=== PATIENT | male | born 1950 | race Caucasian/White ===

== ENCOUNTER → 2018-04-27 | Day surgery (SDC) | payer OTHER ==
[2018-04-23 12:58] VITALS: Ht 168.9 cm; Wt 70.5 kg
[~2018-04-27] VITALS: Ht 168.9 cm; Wt 70.5 kg
[~2018-04-27] MED LIST: ASPI81TA28 PO; ATR10 PO; ATROPINE SULFATE 0.1 MG/ML 5ML SYR IV PRN; CIPROFLOXACIN 400MG / 200ML D5W IV ONE; CIPROFLOXACIN 400MG / 200ML D5W ONE; DEXAMETHASONE SOD INJ 4 MG/ML VIAL ONE; DOCU100C31 PO; DORZ1SOL6 OP; EpHEDrine SULFATE 50MG/5ML SYR ONE; EpHEDrine SULFATE INJ 50 MG/ML AMP IV PRN; FENTANYL CITRATE INJ 50 MCG/1 ML 2 ML VIAL IV PRN; FENTANYL CITRATE INJ 50 MCG/1 ML 2 ML VIAL ONE; FLAX12003 PO; FLUMAZENIL 0.1 MG/1 ML 10 ML VIAL IV PRN; HYDROmorphone INJ 2 MG/ML SYR/VIAL IV PRN; INDOMETHACIN 50 MG SUPP ONE; INDOMETHACIN 50 MG SUPP PR ONE; LABETALOL HCL IV 5 MG/ML 20ML IV PRN; LACTATED RINGER'S 1000ML 1,000 ML IV ONE; LACTATED RINGER'S 1000ML 1,000 ML IV SCH; LARYING-O-JET KIT (LTA) ONE; LATA0.5S OP; LIDOCAINE HCL 2% 2 ML VIAL (20MG/ML) ONE; MELA1TAB5 PO; MEPERIDINE HCL 25 MG/ML CARP IV PRN; MIDAZOLAM HCL 1 MG/ML 2ML VIAL ONE; MULT-506 PO; NALOXONE HCL 0.4 MG/1 ML VIAL/CARP IV PRN; OMEP20CA9 PO; ONDA4TAB46 PO; ONDANSETRON INJ 2 MG/ML 2 ML VIAL IV PRN; ONDANSETRON INJ 2 MG/ML 2 ML VIAL ONE; PATIENT'S ALLERGY INFO NEEDS ENTERED SCH; PHENYLEPHRINE 100MCG/ML 5ML SYR IV PRN; PROPOFOL IV EMULSION 10 MG/ML 20 ML VIAL ONE; ROCURONIUM BROMIDE 10 MG/ML 5 ML VIAL ONE; SUCCINYLCHOLINE CHLORIDE 20 MG/ML 10 ML VIAL IV ONE; TAMS0.4C38 PO; WHEAPOW13 PO
[2018-04-27 12:29] VITALS: BP 139/83; PULSE 63; TEMP 36.9; O2SAT 99
--- NOTE | 2018-04-27 12:51 | Endo History and Physical ---
History & Physical Date of Service: Apr 27, 2018. Chief Complaint: Abnormal imaging Referring Physician: Dr. Schroeder History of Present Illness patient presented to Dr. Schroeder last week with abdominal pain, nausea, itching, and elevated liver tests. Imaging was notable for a suspicious cbd or pancreatic mass. He has been referred for further evaluation and treatment. Past Surgical History Hx Cardiac Surgery: No Hx Abdominal Surgery: No Hx Post-Op Nausea and Vomiting: No Hx Cancer Surgery: No Hx Thoracic Surgery: No Hx Orthopedic: No Hx Urinary Tract Surgery: No No abdominal surgeries Social History Smoking Status: Never Smoker Hx Substance Use: No Hx Alcohol Use: Yes (OCC SOCIAL) Allergies Coded Allergies: No Known Allergies (Unverified , 04/27/18) Current Medications Reported Home Medications Medications Dose Route/Sig Max Daily Dose Days Date Category Hydroxyzine HCl 10 Mg Tab 10 Mg PO Q8H PRN 04/27/18 Reported Zofran (Ondansetron HCl) 4 Mg Tab 4 Mg PO PRN PRN 04/23/18 Reported Kp Melatonin (Melatonin) 3 Mg Tab 1 Tab PO HS 30 04/23/18 Reported Multivitamin (Multivitamins) Tab 1 Tab PO QAM 04/23/18 Reported Xalatan 0.005% Oph Carli (Latanoprost) 0.005 % Carli 1 Drops OP QPM 04/23/18 Reported Cosopt Oph (Dorzolamide Hcl-Timolol Maleat) 1 Carli Carli 1 Drops OP BID 04/23/18 Reported Benefiber (Wheat Dextrin) 1 Pow Pow 1 Dose PO QAM 04/23/18 Reported Aspirin Ec (Aspirin) 81 Mg Tab 81 Mg PO QAM 04/23/18 Reported Flomax (Tamsulosin Hcl) 0.4 Mg Cap 0.4 Mg PO HS 04/23/18 Reported Flaxseed Oil (Flaxseed (Linseed)) 1 Cap Cap 1 Tab PO QAM 04/23/18 Reported Docusate Sodium 100 Mg Cap 1 Cap PO BID PRN 7 04/23/18 Reported Vital Signs Weight (Kilograms): 70.45 Height (Feet): 5 Height (Inches): 6.5 Date Time Temp Pulse Resp B/P (MAP) Pulse Ox O2 Delivery O2 Flow Rate FiO2 04/27/18 12:29 36.9 63 18 139/83 (101) 99 Room Air Physical Exam General Appearance: no apparent distress Respiratory/Chest: Auscultation: breath sounds normal Cardiovascular: Heart Auscultation: RRR Abdomen: Inspection & Palpation: soft Assessment and Plan Patient with suspicious imaging and elevation of his liver enzymes. We are planning for further evaluation with EGD, EUS and ERCP for staging and treatment of biliary obstruction. We have discussed the risks to include bleeding, infection, perforation, pain, pancreatitis, failed cannulation and insufficient cellularity. Plan EGD EUS with possible FNA ERCP for biliary decompression
--- NOTE | 2018-04-27 14:04 | GI REPORT ---
Patient Name: Talib Fernandez Procedure Date: 04/27/2018 1:49 PM Date of : 1950 Admit Type: Preadmit Age: 68 Gender: Male Attending MD: Keisha Nevarez DO Procedure: Upper GI endoscopy Providers: Keisha Nevarez DO Referring MD: Joshua Schroeder Indications: Abnormal CT of the GI tract Medicines: General Anesthesia Complications: No immediate complications. Estimated blood loss: Minimal. Estimated Blood Loss: Estimated blood loss was minimal. Procedure: Pre-Anesthesia Assessment: - Prior to the procedure, a History and Physical was performed, and patient medications, allergies and sensitivities were reviewed. The patient's tolerance of previous anesthesia was reviewed. - The risks and benefits of the procedure and the sedation options and risks were discussed with the patient. All questions were answered and informed consent was obtained. - Patient identification and proposed procedure were verified prior to the procedure by the physician, the nurse and the knife machine operator. The procedure was verified in the procedure room. - Pre-procedure physical examination revealed no contraindications to sedation. - ASA Grade Assessment: II - A patient with mild systemic disease. - After reviewing the risks and benefits, the patient was deemed in satisfactory condition to undergo the procedure. - The anesthesia plan was to use general anesthesia. - Immediately prior to administration of medications, the patient was re-assessed for adequacy to receive sedatives. - The heart rate, respiratory rate, oxygen saturations, blood pressure, adequacy of pulmonary ventilation, and response to care were monitored throughout the procedure. - The physical status of the patient was re-assessed after the procedure. After obtaining informed consent, the endoscope was passed under direct vision. Throughout the procedure, the patient's blood pressure, pulse, and oxygen saturations were monitored continuously. The scope was introduced through the mouth, and advanced to the third part of duodenum. The upper GI endoscopy was accomplished without difficulty. The patient tolerated the procedure well. Findings: The examined esophagus was normal. The Z-line was regular and was found 41 cm from the incisors. The gastric fundus, gastric body and incisura were normal. Four, small non-bleeding erosions were found in the gastric antrum. There were no stigmata of recent bleeding. Biopsies were taken with a cold forceps for histology. Estimated blood loss was minimal. The examined duodenum was normal. Impression: - Normal esophagus. - Z-line regular, 41 cm from the incisors. - Normal gastric fundus, gastric body and incisura. - Non-bleeding erosive gastropathy. Biopsied. - Normal examined duodenum. Recommendation: - Perform an upper endoscopic ultrasound (UEUS) today. - Await pathology results. - Use Prilosec (omeprazole) 20 mg PO daily for 8 weeks. Keisha Nevarez D.O. Keisha Nevarez, 04/27/2018 2:03:23 PM This report has been signed electronically. Note Initiated On: 04/27/2018 1:49 PM Number of Addenda: 0 I attest to the content of the Intraoperative Record and orders documented therein, exceptions below {[id number]}
--- NOTE | 2018-04-27 15:35 | GI REPORT ---
Patient Name: Talib Fernandez Procedure Date: 04/27/2018 1:52 PM Date of : 1950 Admit Type: Preadmit Age: 68 Gender: Male Attending MD: Keisha Nevarez DO Procedure: ERCP Providers: Keisha Nevarez DO Referring MD: Joshua Schroeder Indications: Abnormal liver function test Medicines: General Anesthesia, Cipro 400 mg IV, Indocin 100 mg [place] Complications: No immediate complications. Estimated blood loss: Minimal. Estimated Blood Loss: Estimated blood loss was minimal. Procedure: Pre-Anesthesia Assessment: - Prior to the procedure, a History and Physical was performed, and patient medications, allergies and sensitivities were reviewed. The patient's tolerance of previous anesthesia was reviewed. - The risks and benefits of the procedure and the sedation options and risks were discussed with the patient. All questions were answered and informed consent was obtained. - Patient identification and proposed procedure were verified prior to the procedure by the physician, the nurse and the small animal caretaker. The procedure was verified in the procedure room. - Pre-procedure physical examination revealed no contraindications to sedation. - ASA Grade Assessment: II - A patient with mild systemic disease. - After reviewing the risks and benefits, the patient was deemed in satisfactory condition to undergo the procedure. - The anesthesia plan was to use general anesthesia. - Immediately prior to administration of medications, the patient was re-assessed for adequacy to receive sedatives. - The heart rate, respiratory rate, oxygen saturations, blood pressure, adequacy of pulmonary ventilation, and response to care were monitored throughout the procedure. - The physical status of the patient was re-assessed after the procedure. After obtaining informed consent, the scope was passed under direct vision. Throughout the procedure, the patient's blood pressure, pulse, and oxygen saturations were monitored continuously. The patient tolerated the procedure well. The scope was introduced through the mouth, and advanced to the duodenum and used to inject contrast into the bile duct. The ERCP was extremely difficult. Successful completion of the procedure was aided by performing the maneuvers documented (below) in this report. Findings: The total fluoroscopy exposure time was 5 minutes and 41 seconds. The contact officer film was normal. The esophagus was successfully intubated under direct vision without detailed examination of the pharynx, larynx, and associated structures, and upper GI tract. The upper GI tract was grossly normal. The major papilla was normal. The bile duct was deeply cannulated with the short-nosed traction sphincterotome (Omni 35)and 0.035 in Acrobat 2 guidewire. Contrast was injected. I personally interpreted the bile duct images. Contrast extended to the entire biliary tree. The upper third of the main bile duct contained a single segmental stenosis 15 mm in length. The cystic duct was patent and the gallbladder appeared dilated. The biliary tree was dilated above the stricture / mass. Initially the wire could not be passed above the stricture due to significant stenosis and mass effect. Several different wire combinations were tried to include a 0.035 in Acrobat 2, 0.025 in Acrobat 2 and finally a 0.035 in Delta wire. Finally, the detlt wire was passed into the intrahepatics. Biliary sphincterotomy was made with a monofilament short-tip traction sphincterotome using ERBE electrocautery. There was no post-sphincterotomy bleeding. Cells for cytology were obtained by brushing. The upper third of the main bile duct was successfully dilated with a 4 mm balloon dilator. One 7 Fr by 10 cm biliary stent with a single external flap and a single internal flap was placed 10 cm into the common bile duct. Bile flowed through the stent. The stent was in good position. The endoscope was withdrawn from the patient. Impression: - The major papilla appeared normal. 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 The top portion of the mass appeared be below the common hepatic duct and bifurcation. The stricture was malignant appearing. - A sphincterotomy was performed. - One biliary stent was placed into the biliary tree. Recommendation: - Avoid aspirin and nonsteroidal anti-inflammatory medicines for 1 week. - Observe patient in same day observation unit for 1 hour for observation. - Use broad spectrum antibiotics for 5 days. - Clear liquid diet today. Keisha Nevarez D.O. Keisha Nevarez DO 04/27/2018 3:35:14 PM This report has been signed electronically. Note Initiated On: 04/27/2018 1:52 PM Number of Addenda: 0 I attest to the content of the Intraoperative Record and orders documented therein, exceptions below {[id number]}
--- NOTE | 2018-04-27 15:36 | [facility] Post Operative Brief Note ---
Immediate Operative Summary Operative Date Apr 27, 2018. 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 Keisha Nevarez Entry Level Machine Operator Surgeon(s) None Estimated Blood Loss 0ml Findings Consistent with Post-Op Diagnosis Specimens 1. gastric biopsy 2 bile duct mass biopsy (FNA) 3) [place] cytology of the bile duct Drains Biliary stent placed Anesthesia Type General Complication(s) none Disposition Accompanied Pt To Recover: no Disposition: Recovery Room / PACU
--- NOTE | 2018-04-27 15:39 | Discharge Instructions ---
Endoscopy Patient Instructions Date / Procedure(s) Performed Apr 27, 2018. ERCP, EGD, Other (Endoscopic ultrasound) Allergy Information Coded Allergies: No Known Allergies (Unverified , 04/27/18) Discharge Date / Findings Apr 27, 2018. Several small gastric ulcers / erosions 18 mm common bile duct mass Medication Instructions Reported Home Medications Medications Dose Route/Sig Max Daily Dose Days Date Category Hydroxyzine HCl 10 Mg Tab 10 Mg PO Q8H PRN 04/27/18 Reported Zofran (Ondansetron HCl) 4 Mg Tab 4 Mg PO PRN PRN 04/23/18 Reported Kp Melatonin (Melatonin) 3 Mg Tab 1 Tab PO HS 30 04/23/18 Reported Multivitamin (Multivitamins) Tab 1 Tab PO QAM 04/23/18 Reported Xalatan 0.005% Oph Carli (Latanoprost) 0.005 % Carli 1 Drops OP QPM 04/23/18 Reported Cosopt Oph (Dorzolamide Hcl-Timolol Maleat) 1 Carli Carli 1 Drops OP BID 04/23/18 Reported Benefiber (Wheat Dextrin) 1 Pow Pow 1 Dose PO QAM 04/23/18 Reported Aspirin Ec (Aspirin) 81 Mg Tab 81 Mg PO QAM 04/23/18 Reported Flomax (Tamsulosin Hcl) 0.4 Mg Cap 0.4 Mg PO HS 04/23/18 Reported Flaxseed Oil (Flaxseed (Linseed)) 1 Cap Cap 1 Tab PO QAM 04/23/18 Reported Docusate Sodium 100 Mg Cap 1 Cap PO BID PRN 7 04/23/18 Reported Provider Instructions Activity Restrictions - No exercising or heavy lifting for 24 hours. - Do not drink alcohol the day of the procedure. - Do not drive a car or operate machinery until the day after the procedure. - Do not make any important decisions or sign important papers in 24 hours after the procedure. Following Day: - Return to full activity which may include returning to work/school. Diet Clear liquid diet today Regular diet on 04/28/18 Treatment For Common After Affects For mild abdominal pain, bloating, or excessive gas: - Rest - Eat lightly - Lie on right side Follow-Up Information Cipro 500 mg twice daily for 5 days Omeprazole 20 mg per day for 8 weeks (small gastric ulcers) Surgical oncology appointment CT of the chest to be scheduled Anesthesia Information What You Should Know You have had a procedure that required some medicine to reduce anxiety and discomfort. This treatment is called moderate sedation. After receiving the treatment, you may be sleepy, but you will be able to breathe on your own. The effects of the treatment may last for several hours. Follow these instructions along with Activity/Diet recommendations noted above: * Do NOT do anything where dizziness or clumsiness would be dangerous. * Rest quietly at home today, then you can be up and about tomorrow. * Have a responsible person stay with you the rest of today. * You may have had an I.V. today. If so, you may take the dressing off later today. Recommendations Call your doctor if: * Trouble breathing * Continuous vomiting for more than 24 hours * Temperature above 101 degrees * Severe abdominal pain or bloating * Pain not relieved by pain medicine ordered * There is increased drainage or redness from any incision * A large amount of rectal bleeding greater than 2-3 tablespoons. (If you had a polyp/s removed or have hemorrhoids, a small amount of blood - from the rectum is to be expected.) * You have any unanswered questions or concerns. IN THE EVENT OF A SERIOUS EMERGENCY, GO TO THE NEAREST EMERGENCY ROOM Your discharge instructions were prepared by provider Keisha Nevarez. Patient Instructions Signature Page Talib Fernandez Patient (or Guardian) Signature/Date: I have read and understand the instructions given to me by my caregivers. Caregiver/RN/Doctor Signature/Date: The above-named patient and/or guardian has received patient instructions on this date. + Original Patient Signature Page (only) stays with chart. Please make copy for patient.
--- NOTE | 2018-04-27 15:50 | GI REPORT ---
Patient Name: Talib Fernandez Procedure Date: 04/27/2018 1:50 PM Date of : 1950 Admit Type: Preadmit Age: 68 Gender: Male Attending MD: Keisha Nevarez DO Procedure: Upper EUS Providers: Keisha Nevarez DO Referring MD: Joshua Schroeder Indications: Suspected mass in pancreas on CT scan Medicines: General Anesthesia Complications: No immediate complications. Estimated blood loss: Minimal. Estimated Blood Loss: Estimated blood loss was minimal. Procedure: Pre-Anesthesia Assessment: - Prior to the procedure, a History and Physical was performed, and patient medications, allergies and sensitivities were reviewed. The patient's tolerance of previous anesthesia was reviewed. - The risks and benefits of the procedure and the sedation options and risks were discussed with the patient. All questions were answered and informed consent was obtained. - Patient identification and proposed procedure were verified prior to the procedure by the physician, the nurse and the spike driver. The procedure was verified in the procedure room. - Pre-procedure physical examination revealed no contraindications to sedation. - ASA Grade Assessment: II - A patient with mild systemic disease. - After reviewing the risks and benefits, the patient was deemed in satisfactory condition to undergo the procedure. - The anesthesia plan was to use general anesthesia. - Immediately prior to administration of medications, the patient was re-assessed for adequacy to receive sedatives. - The heart rate, respiratory rate, oxygen saturations, blood pressure, adequacy of pulmonary ventilation, and response to care were monitored throughout the procedure. - The physical status of the patient was re-assessed after the procedure. After obtaining informed consent, the endoscope was passed under direct vision. Throughout the procedure, the patient's blood pressure, pulse, and oxygen saturations were monitored continuously.The upper EUS was accomplished without difficulty. The patient tolerated the procedure well. The Endosonoscope was introduced through the mouth, and advanced to the second part of duodenum. The scope was introduced through the mouth, and advanced to the second part of duodenum. Findings: Endosonographic Finding : There was no sign of significant endosonographic abnormality in the ampulla. No masses were identified. Moderate hyperechoic material consistent with sludge was visualized endosonographically in the gallbladder. There was dilation in the common bile duct which measured up to 12 mm. An oval hypoechoic mass was identified endosonographically in the mid portion of thecommon bile duct. The mass measured 18 mm by 18 mm in maximal cross-sectional diameter. The outer margins were smooth. An intact interface was seen between the mass and the hepatic parenchyma, gallbladder, duodenum, pancreas and portal vein suggesting a lack of invasion. Fine needle aspiration was performed. Color Doppler imaging was utilized prior to needle puncture to confirm a lack of significant vascular structures within the needle path. Three passes were made with the 25 gauge needle (Daptiv pro-core) using a transduodenal approach. Care was taken to avoid the lumen of the CBD A stylet was used. A airport maintenance chief was present and performed a preliminary cytologic examination. Final cytology results are pending. Estimated blood loss was minimal. There was no sign of significant endosonographic abnormality in the entire pancreas. No masses, no cysts, the pancreatic duct was thin in caliber. The PD was normal measuring 3.9 mm in the head. No lymphadenopathy seen. There was no sign of significant endosonographic abnormality in the left adrenal gland. No masses were identified. A cyst was found in the left lobe of the liver and measured 15 mm by 10 mm in maximal cross-sectional diameter. The cyst was hypoechoic. It was without septae. The outer wall of the lesion was not seen. There was diffuse dilation of the intrahepatic biilary tree. Impression: - Normal ampulla. - Hyperechoic material consistent with sludge was visualized endosonographically in the gallbladder. - There was dilation in the common bile duct which measured up to 12 mm. - An 18 mm mass was found in the mild porton of the common bile duct. Fine needle aspiration performed. - Normal pancreas. - Endosonographic images of the left adrenal gland were unremarkable. - A cyst was found in the left lobe of the liver and measured 15 mm by 10 mm. - Diffuse dilation of the intrahepatic biliary tree. Recommendation: - Perform an ERCP today. - Await cytology results. - Suspect that the mass represents cholangiocarcinoma, Stage T1N0 by EUS if cytology is positive. Keisha Nevarez D.O. Keisha Nevarez DO 04/27/2018 3:49:27 PM This report has been signed electronically. Note Initiated On: 04/27/2018 1:50 PM Number of Addenda: 0 I attest to the content of the Intraoperative Record and orders documented therein, exceptions below {[id number]}
--- NOTE | 2018-04-27 16:00 | DIAGNOSTIC IMAGING REPORT ---
ERCP BILIARY DUCTAL CLINICAL HISTORY: DUCT EXPLORATIONno history of significance is provided. COMPARISON STUDY: None FLUOROSCOPY TIME: 3 minutes. 50 images are acquired.. FINDINGS: 1. Retrograde placement of a guidewire followed by retrograde opacification of the common bile duct. Common bile duct vaughan are perhaps slightly irregular and/or multinodular. There is contrast extravasation through what appears to be a cystic duct remnant. There is mild fullness of the intrahepatic ducts with no additional findings of possible. Final images demonstrate placement of a left ureteral stent and sweeping of the common duct with IMPRESSION: Sweeping of the common duct. Contrast extravasation via the cystic duct The above report was generated using voice recognition software. It may contain grammatical, syntax or spelling errors. Electronically signed by: Bradley Zeng M.D. 04/27/2018 3:58 PM Dictated Date/Time: 04/27/2018 3:55 PM
[2018-04-27 16:30] VITALS: BP 147/79; PULSE 64; TEMP 36.4; O2SAT 96
--- NOTE | 2018-04-27 16:42 | Anesthesiology Progress Note ---
Anesthesia Post Op Note Date & Time Apr 27, 2018 at 16:42 Vital Signs Pain Intensity: 0 Vital Signs Past 12 Hours Date Time Temp Pulse Resp B/P (MAP) Pulse Ox O2 Delivery O2 Flow Rate FiO2 04/27/18 16:15 36.6 67 18 139/84 96 Room Air 04/27/18 16:05 66 18 148/93 96 Room Air 04/27/18 15:55 64 16 137/90 100 Oxymask 10 04/27/18 15:45 69 16 143/69 100 Oxymask 10 04/27/18 15:37 36.1 67 16 152/85 100 Oxymask 10 04/27/18 12:29 36.9 63 18 139/83 (101) 99 Room Air Notes Mental Status: alert / awake / arousable, participated in evaluation Pt Amnestic to Procedure: Yes Nausea / Vomiting: adequately controlled Pain: adequately controlled Airway Patency, RR, SpO2: stable & adequate BP & HR: stable & adequate Hydration State: stable & adequate Anesthetic Complications: no major complications apparent
[2018-04-27 17:00] VITALS: BP 140/79; PULSE 68; O2SAT 96
== END | disposition home or self-care (01) ==
LOC: C.ACU 11:48
PROVIDERS: ATTEND Internal Medicine Gastroenterology
DX: C24.0 Malignant neoplasm of extrahepatic bile duct (principal); R94.5 Abnormal results of liver function studies; K31.9 Disease of stomach and duodenum, unspecified; Z79.82 Long term (current) use of aspirin; Z79.899 Other long term (current) drug therapy; F32.9 Major depressive disorder, single episode, unspecified; N40.0 Benign prostatic hyperplasia without lower urinary tract symptoms; K21.9 Gastro-esophageal reflux disease without esophagitis

== ENCOUNTER 2018-05-13 13:04 | Inpatient (IN) | payer OTHER ==
[~2018-05-13] VITALS: Ht 165.1 cm; Wt 73.3 kg
[~2018-05-13 13:04] MED LIST changes: -ATROPINE SULFATE 0.1 MG/ML 5ML SYR IV PRN; -CIPROFLOXACIN 400MG / 200ML D5W IV ONE; -CIPROFLOXACIN 400MG / 200ML D5W ONE; -DEXAMETHASONE SOD INJ 4 MG/ML VIAL ONE; -EpHEDrine SULFATE 50MG/5ML SYR ONE; -EpHEDrine SULFATE INJ 50 MG/ML AMP IV PRN; -FENTANYL CITRATE INJ 50 MCG/1 ML 2 ML VIAL IV PRN; -FENTANYL CITRATE INJ 50 MCG/1 ML 2 ML VIAL ONE; -FLUMAZENIL 0.1 MG/1 ML 10 ML VIAL IV PRN; -HYDROmorphone INJ 2 MG/ML SYR/VIAL IV PRN; -INDOMETHACIN 50 MG SUPP ONE; -INDOMETHACIN 50 MG SUPP PR ONE; -LABETALOL HCL IV 5 MG/ML 20ML IV PRN; -LACTATED RINGER'S 1000ML 1,000 ML IV ONE; -LACTATED RINGER'S 1000ML 1,000 ML IV SCH; -LARYING-O-JET KIT (LTA) ONE; -LIDOCAINE HCL 2% 2 ML VIAL (20MG/ML) ONE; -MEPERIDINE HCL 25 MG/ML CARP IV PRN; -MIDAZOLAM HCL 1 MG/ML 2ML VIAL ONE; -NALOXONE HCL 0.4 MG/1 ML VIAL/CARP IV PRN; -OMEP20CA9 PO; -ONDANSETRON INJ 2 MG/ML 2 ML VIAL IV PRN; -ONDANSETRON INJ 2 MG/ML 2 ML VIAL ONE; -PATIENT'S ALLERGY INFO NEEDS ENTERED SCH; -PHENYLEPHRINE 100MCG/ML 5ML SYR IV PRN; -PROPOFOL IV EMULSION 10 MG/ML 20 ML VIAL ONE; -ROCURONIUM BROMIDE 10 MG/ML 5 ML VIAL ONE; -SUCCINYLCHOLINE CHLORIDE 20 MG/ML 10 ML VIAL IV ONE
[2018-05-13 14:12] LABS: HEMATOCRIT 40.6 % (42-52); HEMOGLOBIN 13.9 g/dL (14.0-18.0); MEAN CELL VOLUME 92.5 fL (80-100); MEAN CORPUSCULAR HEMOGLOBIN 31.7 pg (25-34); MEAN CORPUSCULAR HGB CONC 34.2 g/dl (32-36); PLATELET COUNT 204 K/uL (130-400); RED CELL DISTRIBUTION WIDTH CV 14.9 % (11.5-14.5); RED CELL DISTRIBUTION WIDTH SD 50.7 fL (36.4-46.3)
[2018-05-13] MEDS ORDERED: PIPERACILLIN/TAZOBACTAM 4.5 GM/100ML D5W IV STA (14:13)
[2018-05-13] MEDS ORDERED: SODIUM CHLORIDE 0.9% 1000ML 1,000 ML IV STA (14:13)
--- NOTE | 2018-05-13 14:28 | EMERGENCY ROOM VISIT NOTE ---
History Report prepared by Erwin: Al Yeager Under the Supervision of: Dr. Howie Ruby M.D. First contact with patient: 14:05 Chief Complaint: FLU LIKE SX Stated Complaint: FLU LIKE SYMPTOMS, CHILLS AND ACHES History of Present Illness The patient is a 68 year old male who presents to the Emergency Room with complaints of waxing and waning flu-like symptoms that began yesterday. Patient states he was diagnosed with cholangiocarcinoma 3 weeks ago and had a biliary stent placed by Dr. Nevarez 2 weeks ago. Patient states he has been getting intermittent upper abdominal pain since the stent placement. He states that his abdominal pain is worsened with walking and relieved when he eats. He describes the pain as a "dull ache". He states he called Dr. Nevarez a couple of days ago who told him the stent "might be kinking". Patient adds he saw Dr. Schroeder yesterday for a sore throat that he has had for a week and a half. He states during this visit he was not experiencing the upper abdominal pain. Patient states he had a strep culture done which was negative. He states he was not started on any medication. Patient states following that appointment he began to have "extreme" chills and nausea. He states he then began to develop a fever. Patient states after resting in bed till 2330 yesterday, the symptoms resolved. Patient states when he woke up this morning he felt fatigued and achy. He states he started to develop chills, nausea, body aches, and a headache throughout the today. He denies upper abdominal pain, cough, bowel symptoms, or urinary symptoms. Patient states he was started on a 5-day course of Cipro by his oncologist in [place] yesterday for his body aches. He adds he has a surgery scheduled at the [facility] in [place] in 3 weeks. Patient denies being around anyone else that is sick. Patient denies any chance of tick bites. Patient adds he took ibuprofen for his headache yesterday. Source of History: patient Onset: Yesterday Position: head, abdomen Timing: waxes/wanes Modifying Factors (Relieving): other (None) Associated Symptoms: + chills, + headache, + fatigue, No cough, No urinary symptoms Note: Positive body aches. Negative bowel symptoms. Review of Systems See HPI for pertinent positives & negatives. A total of 10 systems reviewed and were otherwise negative. Past Medical & Surgical Medical Problems: (1) BPH (benign prostatic hyperplasia) (2) Cholangiocarcinoma (3) Glaucoma (4) MDD (major depressive disorder) Family History Omitted secondary to age. Social History Smoking Status: Never Smoker Current/Historical Medications Scheduled Aspirin (Aspirin Ec), 81 MG PO QAM Dorzolamide Hcl-Timolol Maleat (Cosopt Oph), 1 DROPS OP BID Flaxseed (Linseed) (Flaxseed Oil), 1 TAB PO QAM Hydroxyzine HCl (Hydroxyzine HCl), 10 MG PO Q8H prn Latanoprost (Xalatan 0.005% Oph Carli), 1 DROPS OP QPM Melatonin (Kp Melatonin), 1 TAB PO HS Multivitamin (Multivitamin), 1 TAB PO QAM Omeprazole (Prilosec), 20 MG PO DAILY Tamsulosin Hcl (Flomax), 0.4 MG PO HS Wheat Dextrin (Benefiber), 1 DOSE PO QAM Scheduled PRN Ondansetron Hcl (Zofran), 4 MG PO Q8 PRN for Nausea Allergies Coded Allergies: No Known Allergies (Unverified , 05/13/18) Physical Exam Vital Signs Date Time Temp Pulse Resp B/P (MAP) Pulse Ox O2 Delivery O2 Flow Rate FiO2 05/13/18 17:08 78 16 96/71 98 Room Air 05/13/18 15:53 37.2 05/13/18 14:59 80 16 120/71 96 Room Air 05/13/18 14:15 93 05/13/18 13:12 37.5 92 18 135/82 95 Room Air Physical Exam GENERAL: Patient is in no acute distress. HEENT: No acute trauma, normocephalic atraumatic, mucous membranes moist, no nasal congestion, no scleral icterus, no throat erythema or exudate. NECK: No stridor, no adenopathy, no meningismus, trachea is midline. LUNGS: Clear to auscultation bilaterally, no wheeze, no rhonchi, breath sounds equal. HEART: Without murmurs gallops or rubs, regular rate and rhythm. ABDOMEN: Soft, nontender, bowel sounds positive, no hernias, no peritonitis. EXTREMITIES: No cyanosis or edema, full range of motion of all the joints without pain or difficulty, no signs for acute trauma. NEUROLOGIC: Oriented x 3, no acute motor or sensory deficits, no focal weakness. SKIN: Slight jaundice noticed, warm to touch, no rash. Medical Decision & Procedures ER Provider Diagnostic Interpretation: Radiology results as stated below per my review and radiologist interpretation: CT ABD/PELVIS IV CONTRAST ONLY CLINICAL HISTORY: Generalized abdominal pain. History of carcinoma and stent. COMPARISON STUDY: None. TECHNIQUE: Following the IV administration of 119 mL of Optiray-320, CT scan of the abdomen and pelvis was performed from the lung bases to the proximal femurs. Images are reviewed in the axial, sagittal, and coronal planes. IV contrast was administered without complication. A dose lowering technique was utilized adhering to the principles of ALARA. CT DOSE: 530.54 mGycm FINDINGS: Lower chest: There are basilar atelectatic changes. Liver: There is pneumobilia. There are multiple hypodense hepatic lesions, the largest of which measures 36 mm. These approach water attenuation likely represent cysts there is mild intrahepatic biliary ductal dilatation. There is an indwelling biliary enteric stent. Gallbladder: Contracted. Cholelithiasis. Spleen: Normal in size and attenuation. Pancreas: Unremarkable. Adrenal glands: Unremarkable. Kidneys: There is symmetric renal cortical enhancement. The kidneys are normal in size without hydronephrosis. Bowel: There are no transition zones indicate bowel obstruction. There is no evidence of acute diverticulitis. The appendix is not visualized with certainty. There are no findings to indicate acute appendicitis. Peritoneum: There is no intraperitoneal free air or abdominal ascites. Vasculature: The abdominal aorta is normal in course and caliber. Adenopathy: None. Pelvic viscera: The prostate is enlarged measuring 55 mm. Seminal vesicles are also prominent. Skeletal structures: There is prominent discogenic endplate sclerosis the L1-2 level. IMPRESSION: 1. No evidence of bowel obstruction. No evidence of free air 2. Cholelithiasis. Contracted gallbladder. 3. Multiple hypodense hepatic lesions likely represent cysts 4. Mild intrahepatic biliary ductal dilatation. Pneumobilia. Indwelling biliary enteric stent. 5. Prostamegaly 6. No evidence of acute appendicitis. No evidence of acute diverticulitis. Electronically signed by: Kev Perez M.D. 05/13/2018 3:18 PM CHEST ONE VIEW PORTABLE HISTORY: 68 years-old Male fever, poss pneumonia acute fever with concern for possible pneumonia COMPARISON: None available TECHNIQUE: Portable AP view of the chest FINDINGS: Cardiomediastinal and hilar silhouettes are within normal limits. No pneumothorax, pleural effusion, focal airspace consolidation or overt pulmonary edema. Bones of the chest appear grossly intact. Degenerative changes of the shoulders and spine. IMPRESSION: No acute process. The above report was generated using voice recognition software. It may contain grammatical, syntax or spelling errors. Electronically signed by: Jayce Bloom M.D. 05/13/2018 2:37 PM Laboratory Results 05/13/18 13:50 Red Blood Count 4.39, Mean Corpuscular Volume 92.5, Mean Corpuscular Hemoglobin 31.7, Mean Corpuscular Hemoglobin Concent 34.2, Mean Platelet Volume 10.0, Neutrophils (%) (Auto) 81.8, Lymphocytes (%) (Auto) 7.1, Monocytes (%) (Auto) 8.2, Eosinophils (%) (Auto) 2.3, Basophils (%) (Auto) 0.3, Neutrophils # (Auto) 7.53, Lymphocytes # (Auto) 0.65, Monocytes # (Auto) 0.75, Eosinophils # (Auto) 0.21, Basophils # (Auto) 0.03 05/13/18 13:50 Test 05/13/18 13:50 05/13/18 14:46 05/13/18 15:00 05/13/18 15:25 White Blood Count 9.20 K/uL (4.8-10.8) Red Blood Count 4.39 M/uL (4.7-6.1) Hemoglobin 13.9 g/dL (14.0-18.0) Hematocrit 40.6 % (42-52) Mean Corpuscular Volume 92.5 fL (80-100) Mean Corpuscular Hemoglobin 31.7 pg (25-34) Mean Corpuscular Hemoglobin Concent 34.2 g/dl (32-36) Platelet Count 204 K/uL (130-400) Mean Platelet Volume 10.0 fL (7.4-10.4) Neutrophils (%) (Auto) 81.8 % Lymphocytes (%) (Auto) 7.1 % Monocytes (%) (Auto) 8.2 % Eosinophils (%) (Auto) 2.3 % Basophils (%) (Auto) 0.3 % Neutrophils # (Auto) 7.53 K/uL (1.4-6.5) Lymphocytes # (Auto) 0.65 K/uL (1.2-3.4) Monocytes # (Auto) 0.75 K/uL (0.11-0.59) Eosinophils # (Auto) 0.21 K/uL (0-0.5) Basophils # (Auto) 0.03 K/uL (0-0.2) RDW Standard Deviation 50.7 fL (36.4-46.3) RDW Coefficient of Variation 14.9 % (11.5-14.5) Immature Granulocyte % (Auto) 0.3 % Immature Granulocyte # (Auto) 0.03 K/uL (0.00-0.02) Prothrombin Time 10.8 SECONDS (9.0-12.0) Prothromb Time International Ratio 1.0 (0.9-1.1) Activated Partial Thromboplast Time 31.8 SECONDS (21.0-31.0) Partial Thromboplastin Ratio 1.2 Anion Gap 8.0 mmol/L (3-11) Est Creatinine Clear Calc Drug Dose 61.1 ml/min Estimated GFR () 87.7 Estimated GFR (Non- 75.7 BUN/Creatinine Ratio 15.9 (10-20) Calcium Level 8.5 mg/dl (8.5-10.1) Magnesium Level 1.9 mg/dl (1.8-2.4) Total Bilirubin 0.8 mg/dl (0.2-1) Aspartate Amino Transf (AST/SGOT) 140 U/L (15-37) Alanine Aminotransferase (ALT/SGPT) 194 U/L (12-78) Alkaline Phosphatase 206 U/L (45-117) Total Protein 7.2 gm/dl (6.4-8.2) Albumin 3.3 gm/dl (3.4-5.0) Globulin 3.9 gm/dl (2.5-4.0) Albumin/Globulin Ratio 0.9 (0.9-2) Lipase 158 U/L (73-393) Lyme Disease IgG Antibody NEG (NEG) Lyme Disease IgM Antibody NEG (NEG) Lactic Acid Level 1.2 mmol/L (0.4-2.0) Urine Color YELLOW Urine Appearance TURBID (CLEAR) Urine pH 8.5 (4.5-7.5) Urine Specific [place] 1.021 (1.000-1.030) Urine Protein NEG (NEG) Urine Glucose (UA) NEG (NEG) Urine Ketones 1+ (NEG) Urine Occult Blood NEG (NEG) Urine Nitrite NEG (NEG) Urine Bilirubin NEG (NEG) Urine Urobilinogen NEG (NEG) Urine Leukocyte Esterase NEG (NEG) Urine WBC (Auto) 1-5 /hpf (0-5) Urine RBC (Auto) 0-4 /hpf (0-4) Urine Hyaline Casts (Auto) 0 /lpf (0-5) Urine Epithelial Cells (Auto) 10-20 /lpf (0-5) Urine Bacteria (Auto) NEG (NEG) Urine Sperm (Auto) PRESENT (NOT PRESENT) Influenza Type A Antigen Neg for Influ A (NEG) Influenza Type B Antigen Neg for Influ B (NEG) Medications Administered Medications (Trade) Dose Ordered Sig/Ling Route Start Time Stop Time Status Last Admin Dose Admin Sodium Chloride 1,000 ml @ 999 mls/hr Q1H1M STAT IV 05/13/18 14:13 05/13/18 15:13 DC 05/13/18 14:13 999 MLS/HR Piperacillin Sod/ Tazobactam Sod (Zosyn Iv) 4.5 gm NOW STAT IV 05/13/18 14:13 05/13/18 14:19 DC 05/13/18 15:12 4.5 GM ED Course 1409: The patient was evaluated in room B4B. A complete history and physical exam was performed. 1413: Zosyn Iv 4.5gm IV and Sodium Chloride 1000 ml @ 999 mls/hr IV 1500: Ioversol 100ml IV 1608: I reevaluated the patient and updated him on his findings. 1618: Upon reexamination the patient will be further evaluated. I discussed results and treatment plan with the patient. He verbalizes agreement and understanding. I spoke with Terra Orta PA-C of the [facility]. We discussed the patient's results and findings. The patient will be evaluated by Terra Orta PA-C for further management. Medical Decision Differential Diagnosis: Sepsis, bacteremia, biliary stent infection, acute cholecystitis, pneumonia, UTI , biliary obstruction, pharyngitis, lyme disease, and viral illness. There is no leukocytosis or worrisome anemia. No significant electrolyte abnormality, kidney failure. No pancreatitis. Liver enzymes are somewhat elevated. Chest film does not show pneumonia or CHF. Abdominal and pelvis CT does not show any obvious abscess. No significantly dilated biliary ducts. No evidence for diverticulitis or other acute infectious abdominal process. On my exam, the patient was not tender across the abdomen. Patient received IV saline, he was given IV Zosyn as empiric antibiotic coverage. I discussed the case with GI, they recommended a hospital stay and IV antibiotics. The patient may require stent removal and replacement. I spoke to the patient and case management. The on-call hospitalist was counseled. In short, the source for this fever and his symptoms is unclear but we are concerned about an infected, obstructed biliary stent. Hospitalization is warranted. Medication Reconcilliation Current Medication List: was personally reviewed by me Blood Pressure Screening Patient's blood pressure: Normal blood pressure Blood pressure disposition: Did not require urgent referral Consults Time Called: 1609 Consulting Physician: Terra Orta PA-C Returned Call: 1610 Discussed the patient's case. The patient will be evaluated for further management. Impression Primary Impression: Fever Additional Impressions: Elevated liver enzymes Biliary obstruction Scribe Attestation The scribe's documentation has been prepared under my direction and personally reviewed by me in its entirety. I confirm that the note above accurately reflects all work, treatment, procedures, and medical decision making performed by me. Departure Information Dispostion Being Evaluated By Hospitalist Referrals Joshua Schroeder MD (PCP) Forms HOME CARE DOCUMENTATION FORM, IMPORTANT VISIT INFORMATION Patient Instructions My [facility] Problem Qualifiers
[2018-05-13 14:29] LABS: ALBUMIN 3.3 gm/dl (3.4-5.0); CALCIUM 8.5 mg/dl (8.5-10.1); CREATININE 1.02 mg/dl (0.60-1.40); POTASSIUM 3.8 mmol/L (3.5-5.1); TOTAL PROTEIN 7.2 gm/dl (6.4-8.2)
--- NOTE | 2018-05-13 14:38 | DIAGNOSTIC IMAGING REPORT ---
CHEST ONE VIEW PORTABLE HISTORY: 68 years-old Male fever, poss pneumonia acute fever with concern for possible pneumonia COMPARISON: None available TECHNIQUE: Portable AP view of the chest FINDINGS: Cardiomediastinal and hilar silhouettes are within normal limits. No pneumothorax, pleural effusion, focal airspace consolidation or overt pulmonary edema. Bones of the chest appear grossly intact. Degenerative changes of the shoulders and spine. IMPRESSION: No acute process. The above report was generated using voice recognition software. It may contain grammatical, syntax or spelling errors. Electronically signed by: Jayce Bloom M.D. 05/13/2018 2:37 PM Dictated Date/Time: 05/13/2018 2:36 PM
[2018-05-13] MEDS ORDERED: OMEP20CA9 PO (14:47)
[2018-05-13 14:52] LABS: BASO % 0.3 %; BASO ABS # 0.03 K/uL (0-0.2); EOS % 2.3 %; EOS ABS # 0.21 K/uL (0-0.5); IG# 0.03 K/uL (0.00-0.02); LYMPH % 7.1 %; LYMPH ABS # 0.65 K/uL (1.2-3.4); MONO % 8.2 %; MONO ABS # 0.75 K/uL (0.11-0.59); NEUT % 81.8 %; NEUT ABS # 7.53 K/uL (1.4-6.5)
[2018-05-13] MEDS ORDERED: OPTIRAY 320 IV PRN (15:00)
--- NOTE | 2018-05-13 15:20 | DIAGNOSTIC IMAGING REPORT ---
CT ABD/PELVIS IV CONTRAST ONLY CLINICAL HISTORY: Generalized abdominal pain. History of carcinoma and stent. COMPARISON STUDY: None. TECHNIQUE: Following the IV administration of 119 mL of Optiray-320, CT scan of the abdomen and pelvis was performed from the lung bases to the proximal femurs. Images are reviewed in the axial, sagittal, and coronal planes. IV contrast was administered without complication. A dose lowering technique was utilized adhering to the principles of ALARA. CT DOSE: 530.54 mGycm FINDINGS: Lower chest: There are basilar atelectatic changes. Liver: There is pneumobilia. There are multiple hypodense hepatic lesions, the largest of which measures 36 mm. These approach water attenuation likely represent cysts there is mild intrahepatic biliary ductal dilatation. There is an indwelling biliary enteric stent. Gallbladder: Contracted. Cholelithiasis. Spleen: Normal in size and attenuation. Pancreas: Unremarkable. Adrenal glands: Unremarkable. Kidneys: There is symmetric renal cortical enhancement. The kidneys are normal in size without hydronephrosis. Bowel: There are no transition zones indicate bowel obstruction. There is no evidence of acute diverticulitis. The appendix is not visualized with certainty. There are no findings to indicate acute appendicitis. Peritoneum: There is no intraperitoneal free air or abdominal ascites. Vasculature: The abdominal aorta is normal in course and caliber. Adenopathy: None. Pelvic viscera: The prostate is enlarged measuring 55 mm. Seminal vesicles are also prominent. Skeletal structures: There is prominent discogenic endplate sclerosis the L1-2 level. IMPRESSION: 1. No evidence of bowel obstruction. No evidence of free air 2. Cholelithiasis. Contracted gallbladder. 3. Multiple hypodense hepatic lesions likely represent cysts 4. Mild intrahepatic biliary ductal dilatation. Pneumobilia. Indwelling biliary enteric stent. 5. Prostamegaly 6. No evidence of acute appendicitis. No evidence of acute diverticulitis. Electronically signed by: Kev Perez M.D. 05/13/2018 3:18 PM Dictated Date/Time: 05/13/2018 3:12 PM
[2018-05-13 15:53] LABS: INFLUENZA B ANTIGEN Neg for Influ B (NEG)
[2018-05-13] MEDS ORDERED: KETOROLAC TROMETHAMINE 15 MG/ML VIAL IM PRN (17:15)
[2018-05-13] MEDS ORDERED: POLYETHYLENE (MIRALAX) 17 GM PACK PO PRN (17:15)
[2018-05-13] MEDS ORDERED: ONDANSETRON INJ 2 MG/ML 2 ML VIAL IV PRN (17:15)
[2018-05-13] MEDS ORDERED: ONDA4TAB46 PO (17:15)
--- NOTE | 2018-05-13 17:19 | History and Physical ---
History & Physical Date & Time of Service: May 13, 2018 at 17:19 Chief Complaint: Flu Like Symptoms, Chills And Aches Primary Care Physician: Joshua Schroeder MD History of Present Illness Source: patient, clinic records, hospital records Patient is a 68-year-old male with a PMH of recently diagnosed cholangiocarcinoma (s/p biliary stent placement 04/27/18), BPH and other medical problems listed below who presents with chills and low grade fever starting yesterday. Patient was diagnosed with cholangiocarcinoma 3 weeks ago and underwent an ERCP with biliary stent placement by Dr. Nevarez. Has surgery scheduled at [facility] on June 04. Since stent placement , patient has been experiencing intermittent "pressure" of the epigastrium when he walks. States that pain is a dull ache. Discussed this with Dr. Nevarez a few days ago by phone and was told that this type of discomfort is common after biliary stenting but to get in touch with him if he developed a fever, chills or worsening pain. Yesterday, patient began to experience chills, nausea, body aches and a low-grade fever of 99F. Has continued to experience intermittent dull epigastric pain. Touched base with surgical oncology team at [facility] and was started on a 5 day course of Cipro, of which he has completed 2 doses. Continued to experience low-grade fever and chills today, so came to ED for further evaluation. Currently endorses a dull frontal headache and intermittent lightheadedness. Denies fever, chills or abdominal pain currently. No chest pain, shortness of breath, nausea, vomiting, dysuria, hematuria, diarrhea or constipation. No sick contacts. Past Medical/Surgical History Medical Problems: (1) BPH (benign prostatic hyperplasia) Status: Chronic (2) Cholangiocarcinoma Permanent Comment: Diagnosed 3 weeks ago. S/p biliary stent placed by Dr. Nevarez 04/27/18 Status: Chronic (3) Glaucoma Status: Chronic (4) MDD (major depressive disorder) Status: Chronic Family History FH: colon cancer FH: heart disease Hypertension Social History Smoking Status: Never Smoker Alcohol Use: occasionally Marital Status: single Occupational Status: retired Allergies Coded Allergies: No Known Allergies (Unverified , 05/13/18) Home Medications Scheduled Aspirin (Aspirin Ec), 81 MG PO QAM Ciprofloxacin Hcl (Cipro), 500 MG PO BID Dorzolamide Hcl-Timolol Maleat (Cosopt Oph), 1 DROPS OP BID Flaxseed (Linseed) (Flaxseed Oil), 1 TAB PO QAM Hydroxyzine HCl (Hydroxyzine HCl), 10 MG PO Q8H prn Latanoprost (Xalatan 0.005% Oph Carli), 1 DROPS OP QPM Melatonin (Kp Melatonin), 1 TAB PO HS Metronidazole (Flagyl), 500 MG PO TID Multivitamin (Multivitamin), 1 TAB PO QAM Omeprazole (Prilosec), 20 MG PO DAILY Tamsulosin Hcl (Flomax), 0.4 MG PO HS Wheat Dextrin (Benefiber), 1 DOSE PO QAM Scheduled PRN Ondansetron Hcl (Zofran), 4 MG PO Q8 PRN for Nausea Review of Systems Ten systems reviewed and negative except as noted in the HPI. Physical Exam Vital Signs Date Time Temp Pulse Resp B/P (MAP) Pulse Ox O2 Delivery O2 Flow Rate FiO2 05/13/18 17:08 78 16 96/71 98 Room Air 05/13/18 15:53 37.2 05/13/18 14:59 80 16 120/71 96 Room Air 05/13/18 14:15 93 05/13/18 13:12 37.5 92 18 135/82 95 Room Air General Appearance: WD/WN, no apparent distress Head: normocephalic, atraumatic Eyes: normal inspection, PERRL, sclerae normal ENT: normal ENT inspection, hearing grossly normal, pharynx normal Neck: supple, thyroid normal, trachea midline Respiratory/Chest: chest non-tender, lungs clear, normal breath sounds, no respiratory distress, no accessory muscle use Cardiovascular: regular rate, rhythm, no murmur, normal peripheral pulses Abdomen/GI: non tender, soft, no organomegaly Extremities/Musculoskelatal: normal inspection, no calf tenderness, no pedal edema Neurologic/Psych: no motor/sensory deficits, alert, normal mood/affect, oriented x 3 Skin: normal color, warm/dry Diagnostics Laboratory Results Results Past 24 Hours Test 05/13/18 13:50 05/13/18 14:46 05/13/18 15:00 05/13/18 15:25 Range/Units White Blood Count 9.20 4.8-10.8 K/uL Red Blood Count 4.39 4.7-6.1 M/uL Hemoglobin 13.9 14.0-18.0 g/dL Hematocrit 40.6 42-52 % Mean Corpuscular Volume 92.5 80-100 fL Mean Corpuscular Hemoglobin 31.7 25-34 pg Mean Corpuscular Hemoglobin Concent 34.2 32-36 g/dl Platelet Count 204 130-400 K/uL Mean Platelet Volume 10.0 7.4-10.4 fL Neutrophils (%) (Auto) 81.8 % Lymphocytes (%) (Auto) 7.1 % Monocytes (%) (Auto) 8.2 % Eosinophils (%) (Auto) 2.3 % Basophils (%) (Auto) 0.3 % Neutrophils # (Auto) 7.53 1.4-6.5 K/uL Lymphocytes # (Auto) 0.65 1.2-3.4 K/uL Monocytes # (Auto) 0.75 0.11-0.59 K/uL Eosinophils # (Auto) 0.21 0-0.5 K/uL Basophils # (Auto) 0.03 0-0.2 K/uL RDW Standard Deviation 50.7 36.4-46.3 fL RDW Coefficient of Variation 14.9 11.5-14.5 % Immature Granulocyte % (Auto) 0.3 % Immature Granulocyte # (Auto) 0.03 0.00-0.02 K/uL Sodium Level 136 136-145 mmol/L Potassium Level 3.8 3.5-5.1 mmol/L Chloride Level 104 98-107 mmol/L Carbon Dioxide Level 24 21-32 mmol/L Anion Gap 8.0 3-11 mmol/L Blood Urea Nitrogen 16 7-18 mg/dl Creatinine 1.02 0.60-1.40 mg/dl Est Creatinine Clear Calc Drug Dose 61.1 ml/min Estimated GFR () 87.7 Estimated GFR (Non- 75.7 BUN/Creatinine Ratio 15.9 10-20 Random Glucose 106 70-99 mg/dl Calcium Level 8.5 8.5-10.1 mg/dl Magnesium Level 1.9 1.8-2.4 mg/dl Total Bilirubin 0.8 0.2-1 mg/dl Aspartate Amino Transf (AST/SGOT) 140 15-37 U/L Alanine Aminotransferase (ALT/SGPT) 194 12-78 U/L Alkaline Phosphatase 206 45-117 U/L Total Protein 7.2 6.4-8.2 gm/dl Albumin 3.3 3.4-5.0 gm/dl Globulin 3.9 2.5-4.0 gm/dl Albumin/Globulin Ratio 0.9 0.9-2 Lipase 158 73-393 U/L Lyme Disease IgG Antibody NEG NEG Lyme Disease IgM Antibody NEG NEG Lactic Acid Level 1.2 0.4-2.0 mmol/L Urine Color YELLOW Urine Appearance TURBID CLEAR Urine pH 8.5 4.5-7.5 Urine Specific [place] 1.021 1.000-1.030 Urine Protein NEG NEG Urine Glucose (UA) NEG NEG Urine Ketones 1+ NEG Urine Occult Blood NEG NEG Urine Nitrite NEG NEG Urine Bilirubin NEG NEG Urine Urobilinogen NEG NEG Urine Leukocyte Esterase NEG NEG Urine WBC (Auto) 1-5 0-5 /hpf Urine RBC (Auto) 0-4 0-4 /hpf Urine Hyaline Casts (Auto) 0 0-5 /lpf Urine Epithelial Cells (Auto) 10-20 0-5 /lpf Urine Bacteria (Auto) NEG NEG Urine Sperm (Auto) PRESENT NOT PRESENT Influenza Type A Antigen Neg for Influ A NEG Influenza Type B Antigen Neg for Influ B NEG Test 05/13/18 17:09 Range/Units Microbiology Results 05/13/18 Blood Culture, Received Pending 05/13/18 Blood Culture, Received Pending Diagnostic Radiology CXR: IMPRESSION: No acute process. CT abd/pelvis: IMPRESSION: 1. No evidence of bowel obstruction. No evidence of free air 2. Cholelithiasis. Contracted gallbladder. 3. Multiple hypodense hepatic lesions likely represent cysts 4. Mild intrahepatic biliary ductal dilatation. Pneumobilia. Indwelling biliary enteric stent. 5. Prostamegaly 6. No evidence of acute appendicitis. No evidence of acute diverticulitis. Impression Assessment and Plan Patient is a 68-year-old male with a PMH of recently diagnosed cholangiocarcinoma (s/p biliary stent placement 04/27/18), BPH and other medical problems listed below who presents with chills and low grade fever starting yesterday. Low grade fever, chills -In setting of recently diagnosed cholangiocarcinoma -Has been experiencing low grade fever, chills, body aches x 1 day -Was started on a 5-day course of PO cipro and took 2 doses -Hemodynamically stable -No leukocytosis, lactic acid WNL -Flu, lyme serology negative -CT abd/pelvis with mild intrahepatic biliary ductal dilatation. Pneumobilia. Indwelling biliary enteric stent. Cholelithiasis. Contracted gallbladder. No evidence of bowel obstruction. No evidence of free air -GI aware -Admit for IV antibiotics -Will see in the AM -IV Zosyn -Blood cultures pending -Maintenance fluids Cholangiocarcinoma -Diagnosed 3 weeks ago, s/p biliary stent placement by Dr. Nevarez -Surgery scheduled at [facility] on June 04 -Liver enzymes elevated but downtrending since stent placement in mid-April -GI consulted Headache -Dull headache that started yesterday -IV fluids -Toradol PRN BPH -Flomax Glaucoma -Continue home drops as prescribed DVT Ppx: SQ Lovenox Code status: FULL PCP: Elda Dispo: Admitted to med/surg. Plan to return home once medically stable. Patient seen in collaboration with Dr. Menendez. Please see addendum. Attending Addendum Pt was seen and examined. Agreed with Marilyn PETTY assessment and plan. 68-year- old male recently diagnosed with cholangiocarcinoma about 3 weeks ago(s/p biliary stent placement 04/27/18), BPH presents to the ER with chills and low grade fever starting yesterday. He has been having epigastric discomfort since the biliary stent place. In the ER lab showed elevated transaminitis and CT showed milld intrahepatic biliary ductal dilatation. Willl continue IV Zosyn, blood cx already collected. Will consult Gastro for possible ERCP in am with stent exchange. MD Gmema Resuscitation Status VTE Prophylaxis Will order VTE Prophylaxis: Yes
[2018-05-13 17:56] LABS: PTT PATIENT 31.8 SECONDS (21.0-31.0)
[2018-05-13] MEDS ORDERED: PIPERACILL/TAZOBAC CONSULT ACTIVE PRN (18:00)
[2018-05-13] MEDS: ENOXAPARIN 40 MG/0.4 ML SYR SQ SCH (19:00)
[2018-05-13 19:25] VITALS: BP 150/75; PULSE 75; TEMP 37.3; O2SAT 96; Ht 165.1 cm; Wt 73.3 kg
[2018-05-13] MEDS ORDERED: IBUPROFEN 600 MG TAB PO ONE (20:00)
[2018-05-13] MEDS: SODIUM CHLORIDE 0.9% 1000ML 1,000 ML IV SCH (20:01)
[2018-05-13] MEDS ORDERED: DORZOLAMIDE/TIMOLOL 22.3/6.8MG/ML 10 ML BTL OP SCH (21:00)
[2018-05-13] MEDS ORDERED: NON-FORMULARY MEDICATION (Melatonin (Kp Melatonin) 1 TAB) PO SCH (21:00)
[2018-05-13] MEDS: TAMSULOSIN HCL 0.4 MG CAP PO SCH (21:19)
[2018-05-13] MEDS: LATANOPROST 0.005% OP SOLN 2.5 ML BTL OP SCH (21:19)
[2018-05-13] MEDS: PIPERACILL/TAZOBAC IV 3.375 GM in D5W 100ML IV SCH (21:19)
[2018-05-13 22:50] VITALS: BP 105/68; PULSE 59; TEMP 36.7; O2SAT 95
[2018-05-14] VITALS (9 sets, daily range): BP systolic 102–131; BP diastolic 64–80; PULSE 63–100; TEMP 36.2–36.9; O2SAT 93–96
[2018-05-14] MEDS: SODIUM CHLORIDE 0.9% 1000ML 1,000 ML IV SCH ×2 (05:22→20:58)
[2018-05-14] MEDS: PIPERACILL/TAZOBAC IV 3.375 GM in D5W 100ML IV SCH ×3 (05:22→20:58)
[2018-05-14 05:37] LABS: HEMATOCRIT 36.4 % (42-52); HEMOGLOBIN 12.3 g/dL (14.0-18.0); MEAN CELL VOLUME 93.6 fL (80-100); MEAN CORPUSCULAR HEMOGLOBIN 31.6 pg (25-34); MEAN CORPUSCULAR HGB CONC 33.8 g/dl (32-36); MEAN PLATELET VOLUME 9.7 fL (7.4-10.4); PLATELET COUNT 160 K/uL (130-400); RED CELL DISTRIBUTION WIDTH CV 15.3 % (11.5-14.5); RED CELL DISTRIBUTION WIDTH SD 51.5 fL (36.4-46.3); WHITE BLOOD COUNT 4.43 K/uL (4.8-10.8)
[2018-05-14 06:07] LABS: ALBUMIN 2.5 gm/dl (3.4-5.0); CALCIUM 7.4 mg/dl (8.5-10.1); CREATININE 0.81 mg/dl (0.60-1.40); POTASSIUM 3.5 mmol/L (3.5-5.1); TOTAL PROTEIN 5.7 gm/dl (6.4-8.2)
[2018-05-14] MEDS: PANTOprazole SOD 40 MG TAB PO SCH (08:24)
[2018-05-14] MEDS: MULTIVITAMIN TAB PO SCH (08:25)
[2018-05-14] MEDS: ASPIRIN 81 MG ECTAB PO SCH (08:25)
[2018-05-14] MEDS ORDERED: PHENYLEPHRINE 100MCG/ML 5ML SYR IV PRN (10:00)
[2018-05-14] MEDS ORDERED: HYDROmorphone INJ 1 MG/ML SYR IV PRN (10:00)
[2018-05-14] MEDS ORDERED: ONDANSETRON INJ 2 MG/ML 2 ML VIAL IV PRN (10:00)
[2018-05-14] MEDS ORDERED: PROMETHAZINE HCL INJ 12.5 MG in SODIUM CHLORIDE 0.9% 50ML 50 ML IV PRN (10:00)
[2018-05-14] MEDS ORDERED: ATROPINE SULFATE 0.1 MG/ML 5ML SYR IV PRN (10:00)
[2018-05-14] MEDS ORDERED: EpHEDrine SULFATE INJ 50 MG/ML AMP IV PRN (10:00)
--- NOTE | 2018-05-14 10:21 | Gastrointestinal Consultation ---
Gastrointestinal Consultation Date of Consultation: May 14, 2018 Attending Physician: Dr. Menendez Consulting Physician: Dr. Herzog Reason for Consultation: Cholangitis History of Present Illness Patient is a 68 year old male patient of Dr Schroeder with a hx of BPH, glaucoma and recently dx'ed cholangiocarcinoma presented to the ED yesterday for chills, malaise, temp 99. GI is consulted for cholangitis. Regarding his hx of cholangiocarcinoma, He underwent EUS/ERCP by Dr. Nevarez on with findings of a 18 - 18 mm mid CBD lesion. The bile duct was stented with a 7x10cm plastic stent with internal and external flaps. Path positive for adenocarcinoma. He established with [facility] and has a surgery scheduled for 3 weeks from now. Since the time of stent placement, he has had some epigastric discomfort. He has seen [facility] and plan is for surgery and chemotherapy. Regarding this episode of illness, he has had mild upper abdomen pain which lead to the diagnosis of cholangiocarcinoma. Since stenting, his upper abdomen discomfort has continued, possibly slightly worsened. On Thursday, he felt some fatigue and a very mild sore throat. He saw his PCP and also touched base with [facility] who started him on Cipro 500mg BID. However, late that night, he began with riggers, lasting 2-3 hrs. He was then advised to present to the ED for evaluation. He has not had jaundice or acholic stools. His LFTs were elevated on arrival: AST 140 ->66 today, ALT 194 -> 120, Alk Phos 206->185. Bilirubin has remained normal. He had a temp of 99 prior to admission but has been afebrile w/o leukocytosis since arrival here. Past Medical/Surgical History Medical Problems: (1) Biliary obstruction Status: Acute (2) Elevated liver enzymes Status: Acute (3) Fever Status: Acute Past Medical History: 1. BPH 2. Depression 3. Recently dx'ed cholangiocarcinoma Past Surgical History: EUS/ERCP Family History FH: colon cancer FH: heart disease Hypertension Social History Smoking Status: Never Smoker Marital Status: single Occupation Status: retired Allergies Coded Allergies: No Known Allergies (Unverified , 05/13/18) Current Medications Home Meds and Scripts Medications Dose Route/Sig Max Daily Dose Days Date Category Zofran (Ondansetron HCl) 4 Mg Tab 4 Mg PO Q8 PRN 05/13/18 Reported Prilosec (Omeprazole) 20 Mg Cap 20 Mg PO DAILY 05/13/18 Reported Hydroxyzine HCl 10 Mg Tab 10 Mg PO Q8H PRN 04/27/18 Reported Kp Melatonin (Melatonin) 3 Mg Tab 1 Tab PO HS 30 04/23/18 Reported Multivitamin (Multivitamins) Tab 1 Tab PO QAM 04/23/18 Reported Xalatan 0.005% Oph Carli (Latanoprost) 0.005 % Carli 1 Drops OP QPM 04/23/18 Reported Cosopt Oph (Dorzolamide Hcl-Timolol Maleat) 1 Carli Carli 1 Drops OP BID 04/23/18 Reported Benefiber (Wheat Dextrin) 1 Pow Pow 1 Dose PO QAM 04/23/18 Reported Aspirin Ec (Aspirin) 81 Mg Tab 81 Mg PO QAM 04/23/18 Reported Flomax (Tamsulosin Hcl) 0.4 Mg Cap 0.4 Mg PO HS 04/23/18 Reported Flaxseed Oil (Flaxseed (Linseed)) 1 Cap Cap 1 Tab PO QAM 04/23/18 Reported Review of Systems Constitutional: + fever, + chills, No sweats, No weight loss, No weakness Eyes: No eye pain, No redness ENT: No sore throat, No trouble swallowing, No pain on swallowing Respiratory: No cough, No wheezing, No shortness of breath, No dyspnea on exertion Cardiac: No chest pain, No edema, No palpitations Abdomen: + see HPI, + pain, No nausea, No vomiting, No diarrhea, No constipation, No acolic stools, No jaundice, No dark urine Neuro: No memory loss, No weakness, No numbness/tingling, No vertigo, No balance problems Psych: No depression symptoms, No anxiety, No insomnia Heme: No abnormal bleeding/bruising, No night sweats Endo: No excessive thirst, No excessive urination Skin: No rash, No itch, No new/changing skin lesions, No jaundice Physical Exam Date Time Temp Pulse Resp B/P (MAP) Pulse Ox O2 Delivery O2 Flow Rate FiO2 05/14/18 00:00 Room Air 05/13/18 22:50 36.7 59 16 105/68 (80) 95 Room Air 05/13/18 19:25 37.3 75 16 150/75 96 Room Air 05/13/18 18:28 72 16 127/68 100 05/13/18 17:08 78 16 96/71 98 Room Air 05/13/18 15:53 37.2 05/13/18 14:59 80 16 120/71 96 Room Air 05/13/18 14:15 93 05/13/18 13:12 37.5 92 18 135/82 95 Room Air General Appearance: no apparent distress Eyes: normal inspection, EOMI Neck: supple, no adenopathy, thyroid normal Respiratory/Chest: chest non-tender, lungs clear, normal breath sounds, no accessory muscle use Cardiovascular: regular rate, rhythm, no JVD, no murmur Abdomen: normal bowel sounds, soft, no organomegaly, + tenderness (mild, epigastric) Extremities: normal inspection, no pedal edema, normal capillary refill Neurologic/Psych: alert, normal mood/affect, oriented x 3 Skin: normal color, no jaundice, warm/dry, no rash Laboratory Results Last 24 Hours Test 05/13/18 13:50 05/13/18 14:46 05/13/18 15:00 05/13/18 15:25 White Blood Count 9.20 K/uL Red Blood Count 4.39 M/uL Hemoglobin 13.9 g/dL Hematocrit 40.6 % Mean Corpuscular Volume 92.5 fL Mean Corpuscular Hemoglobin 31.7 pg Mean Corpuscular Hemoglobin Concent 34.2 g/dl Platelet Count 204 K/uL Mean Platelet Volume 10.0 fL Neutrophils (%) (Auto) 81.8 % Lymphocytes (%) (Auto) 7.1 % Monocytes (%) (Auto) 8.2 % Eosinophils (%) (Auto) 2.3 % Basophils (%) (Auto) 0.3 % Neutrophils # (Auto) 7.53 K/uL Lymphocytes # (Auto) 0.65 K/uL Monocytes # (Auto) 0.75 K/uL Eosinophils # (Auto) 0.21 K/uL Basophils # (Auto) 0.03 K/uL RDW Standard Deviation 50.7 fL RDW Coefficient of Variation 14.9 % Immature Granulocyte % (Auto) 0.3 % Immature Granulocyte # (Auto) 0.03 K/uL Prothrombin Time 10.8 SECONDS Prothromb Time International Ratio 1.0 Activated Partial Thromboplast Time 31.8 SECONDS Partial Thromboplastin Ratio 1.2 Sodium Level 136 mmol/L Potassium Level 3.8 mmol/L Chloride Level 104 mmol/L Carbon Dioxide Level 24 mmol/L Anion Gap 8.0 mmol/L Blood Urea Nitrogen 16 mg/dl Creatinine 1.02 mg/dl Est Creatinine Clear Calc Drug Dose 61.1 ml/min Estimated GFR () 87.7 Estimated GFR (Non- 75.7 BUN/Creatinine Ratio 15.9 Random Glucose 106 mg/dl Calcium Level 8.5 mg/dl Magnesium Level 1.9 mg/dl Total Bilirubin 0.8 mg/dl Aspartate Amino Transf (AST/SGOT) 140 U/L Alanine Aminotransferase (ALT/SGPT) 194 U/L Alkaline Phosphatase 206 U/L Total Protein 7.2 gm/dl Albumin 3.3 gm/dl Globulin 3.9 gm/dl Albumin/Globulin Ratio 0.9 Lipase 158 U/L Lyme Disease IgG Antibody NEG Lyme Disease IgM Antibody NEG Lactic Acid Level 1.2 mmol/L Urine Color YELLOW Urine Appearance TURBID Urine pH 8.5 Urine Specific [place] 1.021 Urine Protein NEG Urine Glucose (UA) NEG Urine Ketones 1+ Urine Occult Blood NEG Urine Nitrite NEG Urine Bilirubin NEG Urine Urobilinogen NEG Urine Leukocyte Esterase NEG Urine WBC (Auto) 1-5 /hpf Urine RBC (Auto) 0-4 /hpf Urine Hyaline Casts (Auto) 0 /lpf Urine Epithelial Cells (Auto) 10-20 /lpf Urine Bacteria (Auto) NEG Urine Sperm (Auto) PRESENT Influenza Type A Antigen Neg for Influ A Influenza Type B Antigen Neg for Influ B Test 05/14/18 05:14 White Blood Count 4.43 K/uL Red Blood Count 3.89 M/uL Hemoglobin 12.3 g/dL Hematocrit 36.4 % Mean Corpuscular Volume 93.6 fL Mean Corpuscular Hemoglobin 31.6 pg Mean Corpuscular Hemoglobin Concent 33.8 g/dl RDW Standard Deviation 51.5 fL RDW Coefficient of Variation 15.3 % Platelet Count 160 K/uL Mean Platelet Volume 9.7 fL Sodium Level 141 mmol/L Potassium Level 3.5 mmol/L Chloride Level 112 mmol/L Carbon Dioxide Level 25 mmol/L Anion Gap 4.0 mmol/L Blood Urea Nitrogen 9 mg/dl Creatinine 0.81 mg/dl Est Creatinine Clear Calc Drug Dose 77.0 ml/min Estimated GFR () 106.6 Estimated GFR (Non- 92.0 BUN/Creatinine Ratio 11.2 Random Glucose 84 mg/dl Calcium Level 7.4 mg/dl Total Bilirubin 0.7 mg/dl Aspartate Amino Transf (AST/SGOT) 66 U/L Alanine Aminotransferase (ALT/SGPT) 120 U/L Alkaline Phosphatase 155 U/L Total Protein 5.7 gm/dl Albumin 2.5 gm/dl Globulin 3.2 gm/dl Albumin/Globulin Ratio 0.8 Impression Patient is a 68 year old male with cholangiocarcinoma now with cholangitis. His CBD stent is likely obstructed which would cause cholangitis. Plan 1. Continue IV antibiotics. Keep NPO. 2. ERCP today for stent change by Dr. Herzog. ATTESTATION: I have performed a history and physical examination of this patient and reviewed the electronic record. Specifically on physical examination there is no abdominal tenderness. I have discussed the case with DILLON Mansfield. The above note reflects my findings, conclusions, and recommendations. Dillan Herzog MD
[2018-05-14] MEDS ORDERED: FENTANYL CITRATE INJ 50 MCG/1 ML 2 ML VIAL ONE (13:27)
[2018-05-14] MEDS ORDERED: PROPOFOL IV EMULSION 10 MG/ML 20 ML VIAL ONE ×2 (13:45→13:50)
[2018-05-14] MEDS ORDERED: ONDANSETRON INJ 2 MG/ML 2 ML VIAL ONE (13:45)
[2018-05-14] MEDS ORDERED: LIDOCAINE HCL 2% 2 ML VIAL (20MG/ML) ONE (13:45)
[2018-05-14] MEDS ORDERED: DEXAMETHASONE SOD INJ 4 MG/ML VIAL ONE (13:45)
[2018-05-14] MEDS ORDERED: SUCCINYLCHOLINE CHLORIDE 20 MG/ML 10 ML VIAL IV ONE (13:45)
--- NOTE | 2018-05-14 14:23 | [facility] Operative Report ---
Operative Report Operative Date May 14, 2018. Pre-Operative Diagnosis cholangitis Post-Operative Diagnosis cholangitis Procedure(s) Performed Endoscopic Retrograde Cholangiopancreatogram with stent exchange Surgeon Dr. Galloway It Architect Surgeon(s) none Estimated Blood Loss 0 ml Findings Previously placed 7 Fr 10 cm stent removed and replaced with 10 Fr 10 cm stent. Specimens maintained by endoscopy staff Drains None Anesthesia Type General Complication(s) none Disposition no Recovery Room / PACU Indications Cholangiocarcinoma previously stented, presents with cholangitis. Description of Procedure see Provation note. I attest to the content of the Intraoperative Record and any orders documented therein. Any exceptions are noted below.
--- NOTE | 2018-05-14 14:50 | GI REPORT ---
Patient Name: Talib Fernandez Procedure Date: 05/14/2018 1:23 PM Date of : 1950 Admit Type: Inpatient Age: 68 Gender: Male Attending MD: Dillan Herzog MD Procedure: ERCP Providers: Dillan Herzog MD Referring MD: Keisha VANCE DO Indications: For therapy of ascending cholangitis, Cholangiocarcinoma, Stent change Patient Profile: This is a 68 year old male with cholangiocarcinoma diagnosed on 04/27/18. A Cotton Messina 7 Fr by 10 cm stent was placed. Patient presents with rigors and fever. Medicines: General Anesthesia Complications: No immediate complications. Estimated blood loss: None Estimated Blood Loss: Estimated blood loss: none. Procedure: Pre-Anesthesia Assessment: - Prior to the procedure, a History and Physical was performed, and patient medications, allergies and sensitivities were reviewed. The patient's tolerance of previous anesthesia was reviewed. - ASA Grade Assessment: II - A patient with mild systemic disease. After obtaining informed consent, the scope was passed under direct vision. Throughout the procedure, the patient's blood pressure, pulse, and oxygen saturations were monitored continuously. The Scope was introduced through the mouth, and advanced to the duodenum and used to inject contrast into the bile duct. The ERCP was accomplished without difficulty. The patient tolerated the procedure well. Findings: A biliary stent was visible on the engine research engineer film. The esophagus was successfully intubated under direct vision without detailed examination of the pharynx, larynx, and associated structures, and upper GI tract. The upper GI tract was grossly normal. The previously placed plastic stent originating in the biliary tree was emerging from the major papilla. The stent was removed using a snare. The proximal CBD was cannulated with an angle tip Delta 0.035 inch guidewire through a [employer] FS Omni 35 sphincterotome. A 10 Fr by 10 cm Cotton Messina plastic stent with a single external flap and a single internal flap was placed into the biliary tree. Bile flowed through the stent. The stent was in good position. The total fluoroscopy exposure time was 6 minutes and 4 seconds. Impression: - The previously placed stent from the biliary tree was seen in the major papilla and removed with snare. - A Cotton Mess[place] 10 Fr by 10 cm stent was placed through the stricture in good position. Recommendation: - Return patient to [facility] for ongoing care. Dillan Herzog M.D. Dillan Herzog MD 05/14/2018 2:49:44 PM This report has been signed electronically. Note Initiated On: 05/14/2018 1:23 PM Number of Addenda: 0 I attest to the content of the Intraoperative Record and orders documented therein, exceptions below {[id number]}
--- NOTE | 2018-05-14 14:55 | DIAGNOSTIC IMAGING REPORT ---
ERCP BILIARY DUCTAL CLINICAL HISTORY: ERCP COMPARISON STUDY: Abdomen and pelvis CT 05/13/2018. FLUOROSCOPY TIME: 364 seconds. FINDINGS: 9 fluoroscopic spot images of the right upper quadrant. The endoscope is seen at the second portion of the duodenum and the ampulla is cannulated with a guidewire. This is followed by injection of contrast. Mild intrahepatic bile duct dilatation, unchanged. Irregularity throughout the common bile duct. This is followed by placement of a common bile duct stent which appears in good position. IMPRESSION: Fluoroscopy provided for ERCP with placement of a common bile duct stent. The stent appears in good position. Electronically signed by: Warren Martinez M.D. 05/14/2018 2:53 PM Dictated Date/Time: 05/14/2018 2:52 PM
[2018-05-14] MEDS: FENTANYL CITRATE INJ 50 MCG/1 ML 2 ML VIAL IV PRN ×2 (15:00→15:10)
--- NOTE | 2018-05-14 15:08 | Anesthesiology Progress Note ---
Anesthesia Post Op Note Date & Time May 14, 2018 at 15:04 Vital Signs Vital Signs Past 12 Hours Date Time Temp Pulse Resp B/P (MAP) Pulse Ox O2 Delivery O2 Flow Rate FiO2 05/14/18 14:45 84 22 117/72 98 Mask 10 05/14/18 14:35 88 14 122/66 99 Mask 10 05/14/18 14:26 37.1 97 12 134/77 98 Mask 10 05/14/18 07:42 36.9 63 16 119/72 (88) 95 Room Air 05/14/18 07:31 95 Room Air Notes Mental Status: alert / awake / arousable, participated in evaluation Pt Amnestic to Procedure: Yes Nausea / Vomiting: adequately controlled Pain: adequately controlled Airway Patency, RR, SpO2: stable & adequate BP & HR: stable & adequate Hydration State: stable & adequate Anesthetic Complications: no major complications apparent In PACU, pt was noted to have some bruising on the inner part of his upper lip, probably from the bite block placed by GI. Pt also had some petechiae on his left eyelid. There is no pain in the eye or change in vision. The patient had a bout of coughing which probable contributed to the petechiae. The patient was otherwise stable and ready for discharge from PACU.
--- NOTE | 2018-05-14 18:20 | Progress Note ---
Medicine Progress Note Date & Time of Visit: May 14, 2018 at 17:50. Subjective Pt was seen and examined Sitting in chair with no distress Pt said that he feels good He said that his only complaint is mild tenderness across her upper abdomen Tolerated full liquid diet Denies any chest pain, palpitation, fever and SOB Objective Last 8 Hrs Date Time Temp Pulse Resp B/P (MAP) Pulse Ox O2 Delivery O2 Flow Rate FiO2 05/14/18 17:40 36.8 68 18 102/64 (77) 95 Room Air 05/14/18 16:47 36.2 73 18 113/71 (85) 94 Room Air 05/14/18 16:13 36.6 75 18 127/79 (95) 96 Nasal Cannula 3.0 05/14/18 15:40 36.8 72 18 131/80 (97) 96 Nasal Cannula 2.0 05/14/18 15:40 96 Nasal Cannula 2.0 05/14/18 15:40 96 Nasal Cannula 2.0 05/14/18 15:25 78 16 126/76 96 Room Air 05/14/18 15:15 38.6 75 16 130/78 96 Room Air 05/14/18 15:05 76 19 129/73 93 Room Air 05/14/18 14:55 81 16 117/52 91 Room Air 05/14/18 14:45 84 22 117/72 98 Mask 10 05/14/18 14:35 88 14 122/66 99 Mask 10 05/14/18 14:26 37.1 97 12 134/77 98 Mask 10 Physical Exam: General- No acute distress Head- atraumatic Eyes- PERRL, EOMI ENT- oropharynx clear Neck- supple, no JVD Lungs- clear to auscultation Heart- regular rhythm; no murmur, no gallop, no rub appreciated Abdomen- normal bowel sounds, soft Extremities-no calf tenderness Neuro- alert, oriented x 3; PERRL, EOMI Skin- warm & dry Laboratory Results: Last 24 Hours Test 05/14/18 05:14 White Blood Count 4.43 K/uL Red Blood Count 3.89 M/uL Hemoglobin 12.3 g/dL Hematocrit 36.4 % Mean Corpuscular Volume 93.6 fL Mean Corpuscular Hemoglobin 31.6 pg Mean Corpuscular Hemoglobin Concent 33.8 g/dl RDW Standard Deviation 51.5 fL RDW Coefficient of Variation 15.3 % Platelet Count 160 K/uL Mean Platelet Volume 9.7 fL Sodium Level 141 mmol/L Potassium Level 3.5 mmol/L Chloride Level 112 mmol/L Carbon Dioxide Level 25 mmol/L Anion Gap 4.0 mmol/L Blood Urea Nitrogen 9 mg/dl Creatinine 0.81 mg/dl Est Creatinine Clear Calc Drug Dose 77.0 ml/min Estimated GFR () 106.6 Estimated GFR (Non- 92.0 BUN/Creatinine Ratio 11.2 Random Glucose 84 mg/dl Calcium Level 7.4 mg/dl Total Bilirubin 0.7 mg/dl Aspartate Amino Transf (AST/SGOT) 66 U/L Alanine Aminotransferase (ALT/SGPT) 120 U/L Alkaline Phosphatase 155 U/L Total Protein 5.7 gm/dl Albumin 2.5 gm/dl Globulin 3.2 gm/dl Albumin/Globulin Ratio 0.8 Assessment & Plan Cholangitis Present with fever and chills on admission Recently diagnosed of cholangiocarcinoma s/p biliary stent placement by dr. Nevarez CT abd/pelvis showed mild intrahepatic biliary ductal dilatation and indwelling biliary enteric stent. Elevated liver enzymes on admission S/P Endoscopic Retrograde Cholangiopancreatogram with stent exchange done today Tmax was 38.6 today Liver enzymes trending down Continue IV abx with Zosyn Blood cx pending Case discussed with GI Continue full liquid diet Cholangiocarcinoma Diagnosed 3 weeks ago, s/p biliary stent placement by Dr. Nevarez Surgery scheduled at [facility] [place] on June 04 Headache Stable BPH Flomax Glaucoma Continue current med DVT Ppx: SQ Lovenox Code status: FULL Current Inpatient Medications: Current Inpatient Medications Medications (Trade) Dose Ordered Sig/Ling Route Start Time Stop Time Status Last Admin Dose Admin Ioversol (Optiray 320) 100 ml UD PRN IV 05/13/18 15:00 05/17/18 14:59 Enoxaparin Sodium (Lovenox Inj) 40 mg Q24H SQ 05/13/18 19:00 06/12/18 18:59 Polyethylene (Miralax Powder Packet) 17 gm DAILY PRN PO 05/13/18 17:15 06/12/18 17:14 Ondansetron HCl (Zofran Inj) 4 mg Q6H PRN IV 05/13/18 17:15 06/12/18 17:14 Ketorolac Tromethamine (Toradol Inj) 15 mg Q8 PRN IM 05/13/18 17:15 05/18/18 17:14 Miscellaneous Information (Consult) 1 ea UD PRN N/A 05/13/18 18:00 06/12/18 17:59 Sodium Chloride 1,000 ml @ 100 mls/hr Q10H IV 05/13/18 17:15 06/12/18 17:14 05/14/18 05:22 100 MLS/HR Aspirin (Ecotrin Tab) 81 mg QAM PO 05/14/18 09:00 06/13/18 08:59 05/14/18 08:25 81 MG Latanoprost (Xalatan Oph Soln) 1 drops QPM OP 05/13/18 21:00 06/12/18 20:59 05/13/18 21:19 1 DROPS Multivitamins (Multivitamin Tab) 1 tab QAM PO 05/14/18 09:00 06/13/18 08:59 05/14/18 08:25 1 TAB Tamsulosin HCl (Flomax Cap) 0.4 mg HS PO 05/13/18 21:00 06/12/18 20:59 05/13/18 21:19 0.4 MG Pantoprazole Sodium (Protonix Tab) 40 mg DAILY PO 05/14/18 09:00 06/13/18 08:59 05/14/18 08:24 40 MG Miscellaneous Information (Order Awaiting Action) 1 ea QS N/A 05/14/18 00:00 06/13/18 00:00 Piperacillin Sod/ Tazobactam Sod 3.375 gm/Dextrose 115 ml @ 28.75 mls/ hr Q8H IV 05/13/18 21:00 05/23/18 14:59 05/14/18 12:50 28.75 MLS/HR Chlorhexidine Gluconate (Peridex Oral Soln) 15 ml TID MT 05/14/18 21:00 06/13/18 20:59
[2018-05-14] MEDS: ENOXAPARIN 40 MG/0.4 ML SYR SQ SCH (18:36)
[2018-05-14] MEDS: LATANOPROST 0.005% OP SOLN 2.5 ML BTL OP SCH (20:57)
[2018-05-14] MEDS: TAMSULOSIN HCL 0.4 MG CAP PO SCH (20:57)
[2018-05-14] MEDS: CHLORHEXIDINE GLUCONATE 0.12% 480 ML MT SCH (20:58)
[2018-05-14] MEDS ORDERED: NURSING DECISION MEDICATION ORDER SCH (22:30)
[2018-05-15] VITALS (7 sets, daily range): BP systolic 111–136; BP diastolic 68–78; PULSE 63–69; TEMP 36.6–36.8; O2SAT 92–95
[2018-05-15] MEDS: SODIUM CHLORIDE 0.9% 1000ML 1,000 ML IV SCH (06:00)
[2018-05-15] MEDS: PIPERACILL/TAZOBAC IV 3.375 GM in D5W 100ML IV SCH ×3 (06:01→21:32)
[2018-05-15 07:18] LABS: HEMATOCRIT 35.8 % (42-52); HEMOGLOBIN 12.1 g/dL (14.0-18.0); IG# 0.01 K/uL (0.00-0.02); LYMPH % 21.6 %; LYMPH ABS # 1.13 K/uL (1.2-3.4); MEAN CELL VOLUME 92.5 fL (80-100); MEAN CORPUSCULAR HEMOGLOBIN 31.3 pg (25-34); MEAN CORPUSCULAR HGB CONC 33.8 g/dl (32-36); MEAN PLATELET VOLUME 9.8 fL (7.4-10.4); MONO % 11.1 %; MONO ABS # 0.58 K/uL (0.11-0.59); NEUT % 67.1 %; PLATELET COUNT 164 K/uL (130-400); RED CELL DISTRIBUTION WIDTH CV 14.8 % (11.5-14.5); RED CELL DISTRIBUTION WIDTH SD 50.2 fL (36.4-46.3); WHITE BLOOD COUNT 5.22 K/uL (4.8-10.8)
[2018-05-15 07:52] LABS: ALBUMIN 2.6 gm/dl (3.4-5.0); CALCIUM 8.1 mg/dl (8.5-10.1); CREATININE 0.62 mg/dl (0.60-1.40); POTASSIUM 3.8 mmol/L (3.5-5.1)
--- NOTE | 2018-05-15 08:14 | Progress Note ---
Progress Note Date of Service May 15, 2018. Progress Note No events overnight. Feels OK. LFTs down a bit this AM. No fevers. - OK to advance diet today to an appropriate regular diet. - WOuld give him another 24-48 hours of IV antibiotics then OK to discharge. - He will follow up for his surgery as already scheduled. Vandana Haque, DO [facility]
[2018-05-15] MEDS: PANTOprazole SOD 40 MG TAB PO SCH (09:00)
[2018-05-15] MEDS: CHLORHEXIDINE GLUCONATE 0.12% 480 ML MT SCH ×3 (09:19→21:04)
[2018-05-15] MEDS: TIMOLOL MALEATE 0.5% OP SOLN 5 ML BTL OP SCH ×2 (09:20→21:03)
[2018-05-15] MEDS: DORZOLAMIDE HCL 2% OPH SOLN 10 ML BTL OP SCH ×2 (09:20→21:03)
[2018-05-15] MEDS: ASPIRIN 81 MG ECTAB PO SCH (09:21)
[2018-05-15] MEDS: MULTIVITAMIN TAB PO SCH (09:21)
[2018-05-15] MEDS ORDERED: NURSING VERBAL MED ORDER ONE (10:15)
[2018-05-15] MEDS: LATANOPROST 0.005% OP SOLN 2.5 ML BTL OP SCH (17:22)
--- NOTE | 2018-05-15 18:06 | Progress Note ---
Medicine Progress Note Date & Time of Visit: May 15, 2018 at 17:58. Subjective Pt was seen and examined Sitting in chair with no distress watching TV Tolerated diet Denies any chest pain, palpitation, dizziness and SOB Objective Last 8 Hrs Date Time Temp Pulse Resp B/P (MAP) Pulse Ox O2 Delivery O2 Flow Rate FiO2 05/15/18 15:07 36.8 69 18 136/78 (97) 95 05/15/18 10:48 36.6 68 16 111/68 (82) 93 Room Air Physical Exam: General- No acute distress Head- atraumatic Eyes- PERRL, EOMI ENT- oropharynx clear Neck- supple, no JVD Lungs- clear to auscultation Heart- regular rhythm; no murmur, no gallop, no rub appreciated Abdomen- normal bowel sounds, soft Extremities-no calf tenderness Neuro- alert, oriented x 3; PERRL, EOMI Skin- warm & dry Laboratory Results: Last 24 Hours Test 05/15/18 06:48 White Blood Count 5.22 K/uL Red Blood Count 3.87 M/uL Hemoglobin 12.1 g/dL Hematocrit 35.8 % Mean Corpuscular Volume 92.5 fL Mean Corpuscular Hemoglobin 31.3 pg Mean Corpuscular Hemoglobin Concent 33.8 g/dl Platelet Count 164 K/uL Mean Platelet Volume 9.8 fL Neutrophils (%) (Auto) 67.1 % Lymphocytes (%) (Auto) 21.6 % Monocytes (%) (Auto) 11.1 % Eosinophils (%) (Auto) 0.0 % Basophils (%) (Auto) 0.0 % Neutrophils # (Auto) 3.50 K/uL Lymphocytes # (Auto) 1.13 K/uL Monocytes # (Auto) 0.58 K/uL Eosinophils # (Auto) 0.00 K/uL Basophils # (Auto) 0.00 K/uL RDW Standard Deviation 50.2 fL RDW Coefficient of Variation 14.8 % Immature Granulocyte % (Auto) 0.2 % Immature Granulocyte # (Auto) 0.01 K/uL Sodium Level 140 mmol/L Potassium Level 3.8 mmol/L Chloride Level 109 mmol/L Carbon Dioxide Level 25 mmol/L Anion Gap 6.0 mmol/L Blood Urea Nitrogen 5 mg/dl Creatinine 0.62 mg/dl Est Creatinine Clear Calc Drug Dose 100.6 ml/min Estimated GFR () 119.0 Estimated GFR (Non- 102.7 BUN/Creatinine Ratio 8.4 Random Glucose 116 mg/dl Calcium Level 8.1 mg/dl Total Bilirubin 0.4 mg/dl Aspartate Amino Transf (AST/SGOT) 39 U/L Alanine Aminotransferase (ALT/SGPT) 89 U/L Alkaline Phosphatase 128 U/L Total Protein 6.0 gm/dl Albumin 2.6 gm/dl Globulin 3.4 gm/dl Albumin/Globulin Ratio 0.8 Lipase 71 U/L Assessment & Plan Cholangitis Present with fever and chills on admission Recently diagnosed of cholangiocarcinoma s/p biliary stent placement by dr. Nevarez CT abd/pelvis showed mild intrahepatic biliary ductal dilatation and indwelling biliary enteric stent. Elevated liver enzymes on admission S/P Endoscopic Retrograde Cholangiopancreatogram with stent exchange done today Tmax was 38.6 today Liver enzymes trending down Continue IV abx with Zosyn Blood cx pending Case discussed with GI Continue full liquid diet 05/15 Blood cx no growth. Continue IV Zosyn for another 24 to 48 hr Tolerated diet well Liver enzymes continue trending down. Cholangiocarcinoma Diagnosed 3 weeks ago, s/p biliary stent placement by Dr. Nevarez Surgery scheduled at [facility] on June 04 Headache Stable BPH Flomax Glaucoma Continue current med DVT Ppx: SQ Lovenox Code status: FULL Current Inpatient Medications: Current Inpatient Medications Medications (Trade) Dose Ordered Sig/Ling Route Start Time Stop Time Status Last Admin Dose Admin Ioversol (Optiray 320) 100 ml UD PRN IV 05/13/18 15:00 05/17/18 14:59 Enoxaparin Sodium (Lovenox Inj) 40 mg Q24H SQ 05/13/18 19:00 06/12/18 18:59 Polyethylene (Miralax Powder Packet) 17 gm DAILY PRN PO 05/13/18 17:15 06/12/18 17:14 Ondansetron HCl (Zofran Inj) 4 mg Q6H PRN IV 05/13/18 17:15 06/12/18 17:14 Ketorolac Tromethamine (Toradol Inj) 15 mg Q8 PRN IM 05/13/18 17:15 05/18/18 17:14 Miscellaneous Information (Consult) 1 ea UD PRN N/A 05/13/18 18:00 06/12/18 17:59 Aspirin (Ecotrin Tab) 81 mg QAM PO 05/14/18 09:00 06/13/18 08:59 05/15/18 09:21 81 MG Latanoprost (Xalatan Oph Soln) 1 drops QPM OP 05/13/18 21:00 06/12/18 20:59 05/15/18 17:22 1 DROPS Multivitamins (Multivitamin Tab) 1 tab QAM PO 05/14/18 09:00 06/13/18 08:59 05/15/18 09:21 1 TAB Tamsulosin HCl (Flomax Cap) 0.4 mg HS PO 05/13/18 21:00 06/12/18 20:59 05/14/18 20:57 0.4 MG Pantoprazole Sodium (Protonix Tab) 40 mg DAILY PO 05/14/18 09:00 06/13/18 08:59 05/14/18 08:24 40 MG Piperacillin Sod/ Tazobactam Sod 3.375 gm/Dextrose 115 ml @ 28.75 mls/ hr Q8H IV 05/13/18 21:00 05/23/18 14:59 05/15/18 13:15 28.75 MLS/HR Chlorhexidine Gluconate (Peridex Oral Soln) 15 ml TID MT 05/14/18 21:00 06/13/18 20:59 05/15/18 13:19 15 ML Dorzolamide HCl (Trusopt 2% Oph Soln) 1 drops BID OP 05/15/18 09:00 06/14/18 08:59 05/15/18 09:20 1 DROPS Timolol Maleate (Timoptic 0.5% Oph Soln) 1 drops BID OP 05/15/18 09:00 06/14/18 08:59 05/15/18 09:20 1 DROPS
[2018-05-15] MEDS: ENOXAPARIN 40 MG/0.4 ML SYR SQ SCH (18:54)
[2018-05-15] MEDS: TAMSULOSIN HCL 0.4 MG CAP PO SCH (21:05)
[2018-05-16] MEDS: PIPERACILL/TAZOBAC IV 3.375 GM in D5W 100ML IV SCH ×3 (05:13→21:08)
[2018-05-16 07:35] VITALS: BP 128/69; PULSE 83; TEMP 38.3; O2SAT 91
[2018-05-16] MEDS ORDERED: IBUPROFEN 600 MG TAB PO ONE (08:40)
[2018-05-16 08:53] LABS: HEMATOCRIT 41.6 % (42-52); HEMOGLOBIN 14.3 g/dL (14.0-18.0); MEAN CELL VOLUME 92.9 fL (80-100); MEAN CORPUSCULAR HEMOGLOBIN 31.9 pg (25-34); MEAN CORPUSCULAR HGB CONC 34.4 g/dl (32-36); MEAN PLATELET VOLUME 9.7 fL (7.4-10.4); PLATELET COUNT 206 K/uL (130-400); RED CELL DISTRIBUTION WIDTH CV 14.9 % (11.5-14.5); RED CELL DISTRIBUTION WIDTH SD 50.5 fL (36.4-46.3); WHITE BLOOD COUNT 10.49 K/uL (4.8-10.8)
[2018-05-16 09:15] LABS: ALBUMIN 3.2 gm/dl (3.4-5.0); CALCIUM 8.4 mg/dl (8.5-10.1); CREATININE 0.94 mg/dl (0.60-1.40); POTASSIUM 3.5 mmol/L (3.5-5.1); TOTAL PROTEIN 7.3 gm/dl (6.4-8.2)
[2018-05-16] MEDS: CHLORHEXIDINE GLUCONATE 0.12% 480 ML MT SCH ×3 (09:28→21:06)
[2018-05-16] MEDS: TIMOLOL MALEATE 0.5% OP SOLN 5 ML BTL OP SCH ×2 (09:29→21:04)
[2018-05-16] MEDS: LATANOPROST 0.005% OP SOLN 2.5 ML BTL OP SCH ×2 (09:29→17:46)
[2018-05-16] MEDS: DORZOLAMIDE HCL 2% OPH SOLN 10 ML BTL OP SCH ×2 (09:30→21:04)
[2018-05-16] MEDS: MULTIVITAMIN TAB PO SCH (09:31)
[2018-05-16] MEDS: ASPIRIN 81 MG ECTAB PO SCH (09:31)
[2018-05-16] MEDS: PANTOprazole SOD 40 MG TAB PO SCH (11:49)
[2018-05-16 13:07] VITALS: TEMP 37.7
[2018-05-16 15:48] VITALS: BP 110/69; PULSE 62; TEMP 36.5; O2SAT 95
--- NOTE | 2018-05-16 17:51 | Progress Note ---
Medicine Progress Note Date & Time of Visit: May 16, 2018 at 17:45. Subjective Pt was seen and examined Lying in bed with no distress Pt said that he did not sleep well last night He spiked a fever this morning Tolerated diet well Denies any chest pain, palpitation, dizziness and SOB Objective Last 8 Hrs Date Time Temp Pulse Resp B/P (MAP) Pulse Ox O2 Delivery O2 Flow Rate FiO2 05/16/18 15:50 Room Air 05/16/18 15:48 36.5 62 18 110/69 (83) 95 05/16/18 13:07 37.7 Physical Exam: General- No acute distress Head- atraumatic Eyes- PERRL, EOMI ENT- oropharynx clear Neck- supple, no JVD Lungs- clear to auscultation Heart- regular rhythm; no murmur, no gallop Abdomen- normal bowel sounds, soft Extremities-no calf tenderness Neuro- alert, oriented x 3; PERRL, EOMI Skin- warm & dry Laboratory Results: Last 24 Hours Test 05/16/18 08:41 White Blood Count 10.49 K/uL Red Blood Count 4.48 M/uL Hemoglobin 14.3 g/dL Hematocrit 41.6 % Mean Corpuscular Volume 92.9 fL Mean Corpuscular Hemoglobin 31.9 pg Mean Corpuscular Hemoglobin Concent 34.4 g/dl RDW Standard Deviation 50.5 fL RDW Coefficient of Variation 14.9 % Platelet Count 206 K/uL Mean Platelet Volume 9.7 fL Sodium Level 136 mmol/L Potassium Level 3.5 mmol/L Chloride Level 103 mmol/L Carbon Dioxide Level 27 mmol/L Anion Gap 6.0 mmol/L Blood Urea Nitrogen 9 mg/dl Creatinine 0.94 mg/dl Est Creatinine Clear Calc Drug Dose 66.3 ml/min Estimated GFR () 96.8 Estimated GFR (Non- 83.6 BUN/Creatinine Ratio 9.3 Random Glucose 99 mg/dl Calcium Level 8.4 mg/dl Total Bilirubin 0.5 mg/dl Aspartate Amino Transf (AST/SGOT) 36 U/L Alanine Aminotransferase (ALT/SGPT) 84 U/L Alkaline Phosphatase 139 U/L Total Protein 7.3 gm/dl Albumin 3.2 gm/dl Globulin 4.1 gm/dl Albumin/Globulin Ratio 0.8 Assessment & Plan Cholangitis Present with fever and chills on admission Recently diagnosed of cholangiocarcinoma s/p biliary stent placement by dr. Nevarez CT abd/pelvis showed mild intrahepatic biliary ductal dilatation and indwelling biliary enteric stent. Elevated liver enzymes on admission S/P Endoscopic Retrograde Cholangiopancreatogram with stent exchange done today Tmax was 38.6 today Liver enzymes trending down Continue IV abx with Zosyn Blood cx pending Case discussed with GI Continue full liquid diet 8/5 Febrile this morning Blood cx no growth. Continue IV Zosyn for another 24 to 48 hr Tolerated diet well Liver enzymes continue trending down. Will need to be afebrile for at least 24 hrs to consider to discharge Cholangiocarcinoma Diagnosed 3 weeks ago, s/p biliary stent placement by Dr. Nevarez Surgery scheduled at [facility] [place] on June 04 Headache Stable BPH Flomax Glaucoma Continue current med DVT Ppx: SQ Lovenox Code status: FULL Current Inpatient Medications: Current Inpatient Medications Medications (Trade) Dose Ordered Sig/Ling Route Start Time Stop Time Status Last Admin Dose Admin Ioversol (Optiray 320) 100 ml UD PRN IV 05/13/18 15:00 05/17/18 14:59 Enoxaparin Sodium (Lovenox Inj) 40 mg Q24H SQ 05/13/18 19:00 06/12/18 18:59 Polyethylene (Miralax Powder Packet) 17 gm DAILY PRN PO 05/13/18 17:15 06/12/18 17:14 Ondansetron HCl (Zofran Inj) 4 mg Q6H PRN IV 05/13/18 17:15 06/12/18 17:14 Ketorolac Tromethamine (Toradol Inj) 15 mg Q8 PRN IM 05/13/18 17:15 05/18/18 17:14 Miscellaneous Information (Consult) 1 ea UD PRN N/A 05/13/18 18:00 06/12/18 17:59 Aspirin (Ecotrin Tab) 81 mg QAM PO 05/14/18 09:00 06/13/18 08:59 05/16/18 09:31 81 MG Latanoprost (Xalatan Oph Soln) 1 drops QPM OP 05/13/18 21:00 06/12/18 20:59 05/16/18 09:29 1 DROPS Multivitamins (Multivitamin Tab) 1 tab QAM PO 05/14/18 09:00 06/13/18 08:59 05/16/18 09:31 1 TAB Tamsulosin HCl (Flomax Cap) 0.4 mg HS PO 05/13/18 21:00 06/12/18 20:59 05/15/18 21:05 0.4 MG Piperacillin Sod/ Tazobactam Sod 3.375 gm/Dextrose 115 ml @ 28.75 mls/ hr Q8H IV 05/13/18 21:00 05/23/18 14:59 05/16/18 13:04 28.75 MLS/HR Chlorhexidine Gluconate (Peridex Oral Soln) 15 ml TID MT 05/14/18 21:00 06/13/18 20:59 05/16/18 13:05 15 ML Dorzolamide HCl (Trusopt 2% Oph Soln) 1 drops BID OP 05/15/18 09:00 06/14/18 08:59 05/16/18 09:30 1 DROPS Timolol Maleate (Timoptic 0.5% Oph Soln) 1 drops BID OP 05/15/18 09:00 06/14/18 08:59 05/16/18 09:29 1 DROPS Pantoprazole Sodium (Protonix Tab) 40 mg DAILY PO 05/16/18 10:00 06/13/18 08:59 05/16/18 11:49 40 MG
[2018-05-16] MEDS: ENOXAPARIN 40 MG/0.4 ML SYR SQ SCH (19:00)
[2018-05-16] MEDS: TAMSULOSIN HCL 0.4 MG CAP PO SCH (21:04)
[2018-05-16 23:20] VITALS: BP 119/75; PULSE 71; TEMP 36.7; O2SAT 98
[2018-05-16 23:50] VITALS: O2SAT 98
[2018-05-17] MEDS: PIPERACILL/TAZOBAC IV 3.375 GM in D5W 100ML IV SCH ×2 (04:45→13:21)
[2018-05-17 05:57] LABS: HEMATOCRIT 42.4 % (42-52); HEMOGLOBIN 14.2 g/dL (14.0-18.0); MEAN CORPUSCULAR HEMOGLOBIN 31.1 pg (25-34); MEAN CORPUSCULAR HGB CONC 33.5 g/dl (32-36); MEAN PLATELET VOLUME 9.8 fL (7.4-10.4); PLATELET COUNT 212 K/uL (130-400); RED CELL DISTRIBUTION WIDTH SD 50.7 fL (36.4-46.3); WHITE BLOOD COUNT 8.74 K/uL (4.8-10.8)
[2018-05-17 06:25] LABS: CALCIUM 8.3 mg/dl (8.5-10.1); CREATININE 0.94 mg/dl (0.60-1.40); POTASSIUM 3.9 mmol/L (3.5-5.1); TOTAL PROTEIN 7.3 gm/dl (6.4-8.2)
[2018-05-17 07:55] VITALS: BP 119/75; PULSE 68; TEMP 37.1; O2SAT 94
--- NOTE | 2018-05-17 08:08 | Anesthesiology Progress Note ---
Anesthesia Post Op Note Date & Time May 17, 2018 at 08:07 Vital Signs Vital Signs Past 12 Hours Date Time Temp Pulse Resp B/P (MAP) Pulse Ox O2 Delivery O2 Flow Rate FiO2 05/17/18 07:55 37.1 68 16 119/75 (90) 94 Room Air 05/16/18 23:50 98 Room Air 2.0 05/16/18 23:20 36.7 71 18 119/75 (90) 98 Room Air Notes Mental Status: alert / awake / arousable, participated in evaluation Pt Amnestic to Procedure: Yes Nausea / Vomiting: adequately controlled Pain: adequately controlled Airway Patency, RR, SpO2: stable & adequate BP & HR: stable & adequate Hydration State: stable & adequate Anesthetic Complications: no major complications apparent
[2018-05-17] MEDS: CHLORHEXIDINE GLUCONATE 0.12% 480 ML MT SCH ×2 (08:59→13:25)
[2018-05-17] MEDS: MULTIVITAMIN TAB PO SCH (09:00)
[2018-05-17] MEDS: DORZOLAMIDE HCL 2% OPH SOLN 10 ML BTL OP SCH (09:00)
[2018-05-17] MEDS: ASPIRIN 81 MG ECTAB PO SCH (09:00)
[2018-05-17] MEDS: TIMOLOL MALEATE 0.5% OP SOLN 5 ML BTL OP SCH (09:00)
[2018-05-17] MEDS: PANTOprazole SOD 40 MG TAB PO SCH (10:47)
[2018-05-17 15:12] VITALS: BP 135/77; PULSE 80; TEMP 36.6; O2SAT 98
--- NOTE | 2018-05-17 15:44 | Progress Note ---
Medicine Progress Note Date & Time of Visit: May 17, 2018 at 15:36. Subjective Pt was seen and examined Standing in his room with no distress talking on the phone Pt said that he feels fine Afebrile for over 24hrs Denies any chest pain, palpitation, dizziness, fever and SOB Objective Last 8 Hrs Date Time Temp Pulse Resp B/P (MAP) Pulse Ox O2 Delivery O2 Flow Rate FiO2 05/17/18 15:12 36.6 80 18 135/77 (96) 98 Room Air 05/17/18 15:02 37.1 68 16 94 Room Air 05/17/18 07:55 37.1 68 16 119/75 (90) 94 Room Air Physical Exam: General- No acute distress Head- atraumatic Eyes- PERRL, EOMI ENT- oropharynx clear Neck- supple, no JVD Lungs- clear to auscultation Heart- regular rhythm; no murmur, no gallop Abdomen- normal bowel sounds, soft Extremities-no calf tenderness Neuro- alert, oriented x 3; PERRL, EOMI Skin- warm & dry Laboratory Results: Last 24 Hours Test 05/17/18 05:39 White Blood Count 8.74 K/uL Red Blood Count 4.56 M/uL Hemoglobin 14.2 g/dL Hematocrit 42.4 % Mean Corpuscular Volume 93.0 fL Mean Corpuscular Hemoglobin 31.1 pg Mean Corpuscular Hemoglobin Concent 33.5 g/dl RDW Standard Deviation 50.7 fL RDW Coefficient of Variation 15.0 % Platelet Count 212 K/uL Mean Platelet Volume 9.8 fL Sodium Level 137 mmol/L Potassium Level 3.9 mmol/L Chloride Level 105 mmol/L Carbon Dioxide Level 28 mmol/L Anion Gap 4.0 mmol/L Blood Urea Nitrogen 9 mg/dl Creatinine 0.94 mg/dl Est Creatinine Clear Calc Drug Dose 66.3 ml/min Estimated GFR () 96.8 Estimated GFR (Non- 83.6 BUN/Creatinine Ratio 9.8 Random Glucose 89 mg/dl Calcium Level 8.3 mg/dl Total Bilirubin 0.6 mg/dl Aspartate Amino Transf (AST/SGOT) 26 U/L Alanine Aminotransferase (ALT/SGPT) 68 U/L Alkaline Phosphatase 128 U/L Total Protein 7.3 gm/dl Albumin 3.0 gm/dl Globulin 4.3 gm/dl Albumin/Globulin Ratio 0.7 Assessment & Plan Cholangitis Present with fever and chills on admission Recently diagnosed of cholangiocarcinoma s/p biliary stent placement by dr. Nevarez CT abd/pelvis showed mild intrahepatic biliary ductal dilatation and indwelling biliary enteric stent. Elevated liver enzymes on admission S/P Endoscopic Retrograde Cholangiopancreatogram with stent exchange done today Tmax was 38.6 today Liver enzymes trending down Continue IV abx with Zosyn Blood cx pending Case discussed with GI Continue full liquid diet 05/17 Afebrile for over 24hrs Blood cx no growth. Continue IV Zosyn for 5 days Will switch abx to oral Cipro and Flagyl Tolerated diet well Liver enzymes back to normal Clinically stable OK from GI standpoint to discharge home Cholangiocarcinoma Diagnosed 3 weeks ago, s/p biliary stent placement by Dr. Nevarez Surgery scheduled at [facility] [place] on June 04 Headache Stable BPH Flomax Glaucoma Continue current med DVT Ppx: SQ Lovenox Code status: FULL Current Inpatient Medications: Current Inpatient Medications Medications (Trade) Dose Ordered Sig/Ling Route Start Time Stop Time Status Last Admin Dose Admin Enoxaparin Sodium (Lovenox Inj) 40 mg Q24H SQ 05/13/18 19:00 06/12/18 18:59 Polyethylene (Miralax Powder Packet) 17 gm DAILY PRN PO 05/13/18 17:15 06/12/18 17:14 Ondansetron HCl (Zofran Inj) 4 mg Q6H PRN IV 05/13/18 17:15 06/12/18 17:14 Ketorolac Tromethamine (Toradol Inj) 15 mg Q8 PRN IM 05/13/18 17:15 05/18/18 17:14 Miscellaneous Information (Consult) 1 ea UD PRN N/A 05/13/18 18:00 06/12/18 17:59 Aspirin (Ecotrin Tab) 81 mg QAM PO 05/14/18 09:00 06/13/18 08:59 05/17/18 09:00 81 MG Latanoprost (Xalatan Oph Soln) 1 drops QPM OP 05/13/18 21:00 06/12/18 20:59 05/16/18 17:46 1 DROPS Multivitamins (Multivitamin Tab) 1 tab QAM PO 05/14/18 09:00 06/13/18 08:59 05/17/18 09:00 1 TAB Tamsulosin HCl (Flomax Cap) 0.4 mg HS PO 05/13/18 21:00 06/12/18 20:59 05/16/18 21:04 0.4 MG Piperacillin Sod/ Tazobactam Sod 3.375 gm/Dextrose 115 ml @ 28.75 mls/ hr Q8H IV 05/13/18 21:00 05/23/18 14:59 05/17/18 13:21 28.75 MLS/HR Chlorhexidine Gluconate (Peridex Oral Soln) 15 ml TID MT 05/14/18 21:00 06/13/18 20:59 05/17/18 13:25 15 ML Dorzolamide HCl (Trusopt 2% Oph Soln) 1 drops BID OP 05/15/18 09:00 06/14/18 08:59 05/17/18 09:00 1 DROPS Timolol Maleate (Timoptic 0.5% Oph Soln) 1 drops BID OP 05/15/18 09:00 06/14/18 08:59 05/17/18 09:00 1 DROPS Pantoprazole Sodium (Protonix Tab) 40 mg DAILY PO 05/16/18 10:00 06/13/18 08:59 05/17/18 10:47 40 MG
[2018-05-17] MEDS ORDERED: GLC500 PO (15:49)
[2018-05-17] MEDS ORDERED: CIPR-255 PO (15:49)
--- NOTE | 2018-05-17 15:55 | Discharge Instructions ---
Discharge Instructions Date of Service May 17, 2018. Admission Reason for Admission: Cholangiocarcinoma, Fever Discharge Discharge Diagnosis / Problem: Cholangitis, Cholangiocarcinoma, Discharge Goals Goal(s): Decrease discomfort, Increase independence, Improve disease control Activity Recommendations Activity Limitations: resume your previous activity (As tolerated) . Instructions / Follow-Up Instructions / Follow-Up Follow up with your primary care provider Dr. Schroeder on 05/20 @ 12:45 PM Complete the course of antibiotic with cipro and flagyl for an additional 5 days Follow up with your specialist at [facility] for your upcoming surgery on 06/04 Current Hospital Diet Patient's current hospital diet: Low Fat Diet, Low Fiber Diet Discharge Diet Recommended Diet: Low Fiber Diet, Low Fat Diet Procedures Procedures Performed: Endoscopic Retrograde Cholangiopancreatogram with stent exchange Pending Studies Studies pending at discharge: no Medical Emergencies . Who to Call and When: Medical Emergencies: If at any time you feel your situation is an emergency, please call 911 immediately. . Non-Emergent Contact Non-Emergency issues call your: Primary Care Provider Call Non-Emergent contact if: temperature is above 101, you have any medication questions . . "Provider Documentation" section prepared by Steve Menendez. .
[2018-05-17] MEDS ORDERED: METR-162 PO ×2 (16:51→16:52)
--- NOTE | 2018-05-20 21:20 | Discharge Summary ---
Discharge Summary Date of Service May 20, 2018. Discharge Summary Admission Date: May 13, 2018 at 17:08 Discharge Date: May 17, 2018 Discharge Disposition: Home Principal Diagnosis: Cholangitis Secondary Diagnoses/Problems: Cholangiocarcinoma Glaucoma BPH Headache Procedures: ERCP BILIARY DUCTAL CLINICAL HISTORY: ERCP COMPARISON STUDY: Abdomen and pelvis CT 05/13/2018. FLUOROSCOPY TIME: 364 seconds. FINDINGS: 9 fluoroscopic spot images of the right upper quadrant. The endoscope is seen at the second portion of the duodenum and the ampulla is cannulated with a guidewire. This is followed by injection of contrast. Mild intrahepatic bile duct dilatation, unchanged. Irregularity throughout the common bile duct. This is followed by placement of a common bile duct stent which appears in good position. IMPRESSION: Fluoroscopy provided for ERCP with placement of a common bile duct stent. The stent appears in good position. Electronically signed by: Warren Martinez M.D. 05/14/2018 2:53 PM Dictated Date/Time: 05/14/2018 2:52 PM Medication Reconciliation New Medications: Ciprofloxacin Hcl (Cipro) 500 Mg Tab 500 MG PO BID for 3 Days, #6 TAB Metronidazole (Flagyl) 500 Mg Tab 500 MG PO TID for 5 Days, TAB Continued Medications: Aspirin (Aspirin Ec) 81 Mg Tab 81 MG PO QAM Dorzolamide Hcl-Timolol Maleat (Cosopt Oph) 1 Carli Carli 1 DROPS OP BID, #10 ML 3 Refills Flaxseed (Linseed) (Flaxseed Oil) 1 Cap Cap 1 TAB PO QAM Hydroxyzine HCl (Hydroxyzine HCl) 10 Mg Tab 10 MG PO Q8H prn Latanoprost (Xalatan 0.005% Oph Carli) 0.005 % Carli 1 DROPS OP QPM, #2.5 ML 3 Refills Melatonin (Kp Melatonin) 3 Mg Tab 1 TAB PO HS for 30 Days, #30 TAB Multivitamin (Multivitamin) Tab 1 TAB PO QAM, TAB Omeprazole (Prilosec) 20 Mg Cap 20 MG PO DAILY, CAP Ondansetron Hcl (Zofran) 4 Mg Tab 4 MG PO Q8 PRN for Nausea, TAB Tamsulosin Hcl (Flomax) 0.4 Mg Cap 0.4 MG PO HS, CAP Wheat Dextrin (Benefiber) 1 Pow Pow 1 DOSE PO QAM Admission Information HPI (per Admitting provider): Patient is a 68-year-old male with a PMH of recently diagnosed cholangiocarcinoma (s/p biliary stent placement 04/27/18), BPH and other medical problems listed below who presents with chills and low grade fever starting yesterday. Patient was diagnosed with cholangiocarcinoma 3 weeks ago and underwent an ERCP with biliary stent placement by Dr. Nevarez. Has surgery scheduled at [facility] on June 04. Since stent placement , patient has been experiencing intermittent "pressure" of the epigastrium when he walks. States that pain is a dull ache. Discussed this with Dr. Nevarez a few days ago by phone and was told that this type of discomfort is common after biliary stenting but to get in touch with him if he developed a fever, chills or worsening pain. Yesterday, patient began to experience chills, nausea, body aches and a low-grade fever of 99F. Has continued to experience intermittent dull epigastric pain. [place] base with surgical oncology team at [facility] and was started on a 5 day course of Cipro, of which he has completed 2 doses. Continued to experience low-grade fever and chills today, so came to ED for further evaluation. Currently endorses a dull frontal headache and intermittent lightheadedness. Denies fever, chills or abdominal pain currently. No chest pain, shortness of breath, nausea, vomiting, dysuria, hematuria, diarrhea or constipation. No sick contacts. Physical Exam (per Admitting): General Appearance: WD/WN, no apparent distress Head: normocephalic, atraumatic Eyes: normal inspection, PERRL, sclerae normal ENT: normal ENT inspection, hearing grossly normal, pharynx normal Neck: supple, thyroid normal, trachea midline Respiratory/Chest: chest non-tender, lungs clear, normal breath sounds, no respiratory distress, no accessory muscle use Cardiovascular: regular rate, rhythm, no murmur, normal peripheral pulses Abdomen/GI: non tender, soft, no organomegaly Extremities/Musculoskelatal: normal inspection, no calf tenderness, no pedal edema Neurologic/Psych: no motor/sensory deficits, alert, normal mood/affect, oriented x 3 Skin: normal color, warm/dry Hospital Course Cholangitis Present with fever and chills on admission Recently diagnosed of cholangiocarcinoma s/p biliary stent placement by dr. Nevarez CT abd/pelvis showed mild intrahepatic biliary ductal dilatation and indwelling biliary enteric stent. Elevated liver enzymes on admission S/P Endoscopic Retrograde Cholangiopancreatogram with stent exchange done today Tmax was 38.6 today Liver enzymes trending down Continue IV abx with Zosyn Blood cx pending Case discussed with GI Continue full liquid diet 05/17 Afebrile for over 24hrs Blood cx no growth. Continue IV Zosyn for 5 days Will switch abx to oral Cipro and Flagyl Tolerated diet well Liver enzymes back to normal Clinically stable OK from GI standpoint to discharge home Cholangiocarcinoma Diagnosed 3 weeks ago, s/p biliary stent placement by Dr. Nevarez Surgery scheduled at [facility] [place] on June 04 Headache Stable BPH Flomax Glaucoma Continue current med DVT Ppx: SQ Lovenox Code status: FULL Total time spent on discharge = 35 minutes This includes examination of the patient, discharge planning, medication reconciliation, and communication with other providers. Discharge Instructions Discharge Instructions Date of Service May 17, 2018. Admission Reason for Admission: Cholangiocarcinoma, Fever Discharge Discharge Diagnosis / Problem: Cholangitis, Cholangiocarcinoma, Discharge Goals Goal(s): Decrease discomfort, Increase independence, Improve disease control Activity Recommendations Activity Limitations: resume your previous activity (As tolerated) . Instructions / Follow-Up Instructions / Follow-Up Follow up with your primary care provider Dr. Schroeder on 05/20 @ 12:45 PM Complete the course of antibiotic with cipro and flagyl for an additional 5 days Follow up with your specialist at [facility] for your upcoming surgery on 06/04 Current Hospital Diet Patient's current hospital diet: Low Fat Diet, Low Fiber Diet Discharge Diet Recommended Diet: Low Fiber Diet, Low Fat Diet Procedures Procedures Performed: Endoscopic Retrograde Cholangiopancreatogram with stent exchange Pending Studies Studies pending at discharge: no Medical Emergencies . Who to Call and When: Medical Emergencies: If at any time you feel your situation is an emergency, please call 911 immediately. . Non-Emergent Contact Non-Emergency issues call your: Primary Care Provider Call Non-Emergent contact if: temperature is above 101, you have any medication questions . . "Provider Documentation" section prepared by Steve Menendez. . Signed: Signed: The status of this report is Draft * If report status is Draft, the document has not been finalized by the responsible provider. Additional Copies To Joshua Schroeder MD
--- NOTE | 2018-05-21 13:32 | EDITING REQUIRED CODING QUERY ---
CODING QUERY To promote full compliance with coding requirements relating to patient care, provider participation is requested in all cases of tailor's aide uncertainty. Please assist us with the question(s) below: Coding Question(s): Cholangitis is documented. There was a procedure done to change the previously placed bile duct stent. The GI Consult on 05/14 documents that the CBD is likely obstructed which would cause cholangitis. The ER H&P documents that the source for this fever and his symptoms is unclear but we are concerned about an infected, obstructed biliary stent. Please specify below, in your clinical opinion. (x ) Cholangitis and CBD obstruction were likely postoperative complications resulting from the previously placed biliary stent. ( ) Cholangitis and CBD obstruction were Not likely postoperative complication resulting from the previously placed biliary stent Physician's Response(s): Thank you Aditi Serrano Principal Diagnosis: "_that condition established after study, to be chiefly responsible for occasioning the admission of the patient to the hospital for care." Co-Existing Principal Diagnosis: "_when two or more diagnoses equally meet the criteria for principal diagnosis as determined by the circumstances of admission, diagnostic work up, and/or therapy provided, and the Alphabetic Index, Tabular List, or another coding guideline does not provide sequencing direction, any one of the diagnoses may be sequenced first." "When the physician has documented what appears to be a current diagnosis in the body of the record, but has not included the diagnosis in the final diagnostic statement, the physician should be asked whether the diagnosis should be added." (Source Coding Clinic 2 QTR90. p3-4)
== END 2018-05-17 17:25 | disposition home or self-care (01) | DRG 919 ==
LOC: C.EDB 13:06 → C.MSN 17:08 → ENRESERV 17:44
PROVIDERS: ADMIT Internal Medicine; ATTEND Internal Medicine
PROC: 0F798DZ Dilation of Common Bile Duct with Intraluminal Device, Via Natural or Artificial Opening Endoscopic (ICD-10-PCS; principal; 2018-05-14 08:00)
PROC: 0FPB8DZ Removal of Intraluminal Device from Hepatobiliary Duct, Via Natural or Artificial Opening Endoscopic (ICD-10-PCS; principal; 2018-05-14 08:00)
DX: T85.79XA Infection and inflammatory reaction due to other internal prosthetic devices, implants and grafts, initial encounter (principal); K83.1 Obstruction of bile duct; K83.0 Cholangitis; C22.1 Intrahepatic bile duct carcinoma; T85.590A Other mechanical complication of bile duct prosthesis, initial encounter; R51 Headache; N40.0 Benign prostatic hyperplasia without lower urinary tract symptoms; H40.9 Unspecified glaucoma; Z51.81 Encounter for therapeutic drug level monitoring; Z79.899 Other long term (current) drug therapy; Z79.82 Long term (current) use of aspirin; Z80.0 Family history of malignant neoplasm of digestive organs; Z82.49 Family history of ischemic heart disease and other diseases of the circulatory system; Y83.2 Surgical operation with anastomosis, bypass or graft as the cause of abnormal reaction of the patient, or of later complication, without mention of misadventure at the time of the procedure

== ENCOUNTER 2018-05-29 12:13 | Emergency (ER) | payer OTHER ==
[~2018-05-29] VITALS: Ht 165.1 cm; Wt 72.3 kg
[~2018-05-29 12:13] MED LIST changes: +CIPR-255 PO; -DOCU100C31 PO; +METR-162 PO; +OMEP20CA9 PO
[2018-05-29 12:17] VITALS: TEMP 37.1; Ht 165.1 cm; Wt 72.3 kg
--- NOTE | 2018-05-29 12:34 | EMERGENCY ROOM VISIT NOTE ---
ED Visit Note First contact with patient: 12:21 The patient was seen and examined with Dr. Jacki WALTON. I agree with the history, physical and findings. Please see the note for dispositions and details.
--- NOTE | 2018-05-29 12:59 | EMERGENCY ROOM VISIT NOTE ---
History First contact with patient: 12:21 Chief Complaint: GI ASSESSMENT Stated Complaint: CHEST PAIN History of Present Illness The patient is a 68 year old male who presents to the Emergency Room with complaints of a desire to get checked out prior to his cholangiocarinoma surgery on 06/04. Pt reports that at night we woke up with a 6/10 RUQ pain (up from a chronic baseline of 2/10 pain) and nausea. Pt was getting ready to go to the ER when his symptoms resolved. Of note is that he took a Benadryl yesterday afternoon. When he took Benadryl previous to his Cholangiocarcinoma he would also get GI discomfort. Pt is secondarily here for "sniffles" that developed yesterday. Pt has a history of pollen and mold allergies and admits that because of the rain it may be a worsening of his allergies. Pt doesn't take anything of his allergies although he has taken Flonase in the past. Pt states that at the present time he does not have any pain or nausea and feels normal. He could not get into [facility] today so he came to the ER. Review of Systems See HPI for pertinent positives and negatives. A total of ten systems were reviewed and were otherwise negative. Constitutional: No fever, No chills ENT: No hearing loss Respiratory: No cough, No sputum, No wheezing, No shortness of breath Cardiovascular: No chest pain, No edema Abdomen: No pain, No nausea, No vomiting, No diarrhea, No constipation Musculoskeletal: No joint pain Genitourinary - Male: No hematuria Neurologic: No memory loss Psychiatric: No depression symptoms Endocrine: No fatigue Past Medical/Surgical History Medical Problems: (1) BPH (benign prostatic hyperplasia) (2) Cholangiocarcinoma (3) Glaucoma (4) MDD (major depressive disorder) Family History FH: colon cancer FH: heart disease Hypertension Social History Smoking Status: Never Smoker Marital Status: single Occupation Status: retired Current/Historical Medications Scheduled Aspirin (Aspirin Ec), 81 MG PO QAM Ciprofloxacin Hcl (Cipro), 500 MG PO BID Dorzolamide Hcl-Timolol Maleat (Cosopt Oph), 1 DROPS OP BID Flaxseed (Linseed) (Flaxseed Oil), 1 TAB PO QAM Hydroxyzine HCl (Hydroxyzine HCl), 10 MG PO Q8H prn Latanoprost (Xalatan 0.005% Oph Carli), 1 DROPS OP QPM Melatonin (Kp Melatonin), 1 TAB PO HS Metronidazole (Flagyl), 500 MG PO TID Multivitamin (Multivitamin), 1 TAB PO QAM Omeprazole (Prilosec), 20 MG PO DAILY Tamsulosin Hcl (Flomax), 0.4 MG PO HS Wheat Dextrin (Benefiber), 1 DOSE PO QAM Scheduled PRN Ondansetron Hcl (Zofran), 4 MG PO Q8 PRN for Nausea Physical Exam Vital Signs Date Time Temp Pulse Resp B/P (MAP) Pulse Ox O2 Delivery O2 Flow Rate FiO2 05/29/18 14:10 62 16 114/73 95 Room Air 05/29/18 12:17 37.1 85 18 124/82 95 Room Air Physical Exam Gen: No acute distress. HEENT: Head - normocephalic and atraumatic. Pupils are equal, round, and reactive to light. Extraocular eye muscles are intact and sclera are anicteric. Ears - bilaterally patent canals with noninjected tympanic membranes and no evidence of hemotympanum. Nose - moist nasal mucosa without discharge. Mouth - moist buccal mucosa. Oropharynx is nonerythematous and there is no tonsillar exudate or edema noted. Neck: Supple; no JVD, nuchal rigidity, cervical lymphadenopathy, or auscultated bruits. Heart: Regular rate and rhythm. There is a normal S1 and S2 with no murmurs, clicks, or gallops appreciated. Lungs: Clear to auscultation bilaterally with no wheezes, rales, or rhonchi. Abdomen: Soft, completely nontender, nondistended, with good bowel sounds. There are no palpable pulsatile masses or hepatosplenomegaly. There is no guarding, rigidity, or rebound noted. Extremities: No evidence of cyanosis, clubbing, or edema. There are easily palpable peripheral pulses. Neuro:The patient is awake and alert, oriented to day, time, and place. Muscle strength is 5/5 in all 4 extremities. The patient has equal quick service technician strength and equal pedal push and pull. There are no cerebellar signs. Medical Decision & Procedures ER Provider Diagnostic Interpretation: CHEST ONE VIEW PORTABLE CLINICAL HISTORY: 68 years-old Male presenting with nausea and cough x 1day. TECHNIQUE: Portable upright AP view of the chest was obtained. COMPARISON: 05/13/2018. FINDINGS: Atherosclerosis of the aortic arch. Cardiac silhouette normal in size. No focal opacity. No large effusion or pneumothorax. Osseous structures normal. A catheter-like object projects over the right upper quadrant, indeterminate and possibly outside the patient. IMPRESSION: 1. No acute cardiopulmonary disease. 2. A catheter-like object projects over the right upper quadrant, indeterminate and possibly outside the patient. Correlate clinically. ABDOMEN LIMITED (US) CLINICAL HISTORY: 68 years-old Male presenting with RUQ Ultrasound - eval patency of bile duct stent. TECHNIQUE: Real-time grayscale and limited color Doppler ultrasound imaging of the abdomen limited to the right upper quadrant was performed. COMPARISON: CT from 05/13/2018. FINDINGS: Pancreas: Visualized portions of the pancreatic head and body normal. Liver: Normal echogenicity and echotexture. Well-defined hypoechoic echogenic lesions in the liver likely of hepatic cysts. The largest measures 4.3 cm. Main portal vein patent with normal directional flow. Biliary: Pneumobilia with the biliary stent in place. Echogenic material surrounds the common duct stent. No intrahepatic bladder ductal dilatation. Common bile duct measures up to 7-8 mm in diameter. Gallbladder: No evidence of gallstones, gallbladder wall thickening, gallbladder distention, or pericholecystic fluid or inflammatory change. Right kidney: Normal in appearance without evidence of hydronephrosis. Ascites: Trace ascites.. Other: None. IMPRESSION: 1. Common bile duct stent in place with echogenic material surrounding the stent. No intrahepatic bladder ductal dilatation, which suggests stent patency. No cholelithiasis. 2. Multiple hepatic cysts. Laboratory Results 05/29/18 13:05 Red Blood Count 4.31, Mean Corpuscular Volume 93.0, Mean Corpuscular Hemoglobin 31.6, Mean Corpuscular Hemoglobin Concent 33.9, Mean Platelet Volume 9.7, Neutrophils (%) (Auto) 59.9, Lymphocytes (%) (Auto) 20.0, Monocytes (%) (Auto) 11.3, Eosinophils (%) (Auto) 7.8, Basophils (%) (Auto) 0.9, Neutrophils # (Auto ) 4.91, Lymphocytes # (Auto) 1.64, Monocytes # (Auto) 0.93, Eosinophils # (Auto ) 0.64, Basophils # (Auto) 0.07 05/29/18 13:05 Test 05/29/18 13:05 White Blood Count 8.20 K/uL (4.8-10.8) Red Blood Count 4.31 M/uL (4.7-6.1) Hemoglobin 13.6 g/dL (14.0-18.0) Hematocrit 40.1 % (42-52) Mean Corpuscular Volume 93.0 fL (80-100) Mean Corpuscular Hemoglobin 31.6 pg (25-34) Mean Corpuscular Hemoglobin Concent 33.9 g/dl (32-36) Platelet Count 264 K/uL (130-400) Mean Platelet Volume 9.7 fL (7.4-10.4) Neutrophils (%) (Auto) 59.9 % Lymphocytes (%) (Auto) 20.0 % Monocytes (%) (Auto) 11.3 % Eosinophils (%) (Auto) 7.8 % Basophils (%) (Auto) 0.9 % Neutrophils # (Auto) 4.91 K/uL (1.4-6.5) Lymphocytes # (Auto) 1.64 K/uL (1.2-3.4) Monocytes # (Auto) 0.93 K/uL (0.11-0.59) Eosinophils # (Auto) 0.64 K/uL (0-0.5) Basophils # (Auto) 0.07 K/uL (0-0.2) RDW Standard Deviation 49.9 fL (36.4-46.3) RDW Coefficient of Variation 14.6 % (11.5-14.5) Immature Granulocyte % (Auto) 0.1 % Immature Granulocyte # (Auto) 0.01 K/uL (0.00-0.02) Anion Gap 6.0 mmol/L (3-11) Est Creatinine Clear Calc Drug Dose 84.3 ml/min Estimated GFR () 110.6 Estimated GFR (Non- 95.4 BUN/Creatinine Ratio 26.7 (10-20) Calcium Level 8.5 mg/dl (8.5-10.1) Total Bilirubin 0.3 mg/dl (0.2-1) Aspartate Amino Transf (AST/SGOT) 30 U/L (15-37) Alanine Aminotransferase (ALT/SGPT) 39 U/L (12-78) Alkaline Phosphatase 88 U/L (45-117) Total Protein 7.6 gm/dl (6.4-8.2) Albumin 3.1 gm/dl (3.4-5.0) Globulin 4.5 gm/dl (2.5-4.0) Albumin/Globulin Ratio 0.7 (0.9-2) Lipase 163 U/L (73-393) Medical Decision The patient's care and disposition was discussed with Dr. Wesley, Attending ED Physician. This is a 68M with resolved RUQ pain. Differential diagnosis include occluded bile duct stent, gastroenteritis, food borne illness, infections, obstruction, pancreatitis, appendicitis, diverticulitis, inflammatory bowel disease, GI bleed , biliary pathology, toxicologic as well as others were entertained. Triage Nursing notes were reviewed. ED Course included an extensive history and physical exam, labs, X-ray, US of the RUQ. 12:45 pm - Pt was seen and examined at bedside, case discussed with Dr. Wesley and initial orders were placed. X-ray and RUQ Ultrasound. 2:30 pm - US, X-ray and Lab work discussed with patient. Pt discharged in good condition. Advised to follow up with PCP. Can use Flonase or nasal irrigation for post nasal drip symptoms. No absolute contraindications to surgery found at today's visit. The pt was informed about the findings as listed above. All questions were answered. Return instructions were outlined and the patient was discharged in good condition. The patient was referred to PCP for recheck of the current condition. Head Trauma GCS Score: 15 Impression Primary Impression: Cholangiocarcinoma Departure Information Dispostion Home / Self-Care Condition GOOD Referrals Joshua Schroeder MD (PCP) Patient Instructions [facility] Additional Instructions Your ultrasound showed a patent aka working, bile duct stent. Your lab work was also normal. You can use Flonase or nasal irrigation for post nasal drip symptoms. There are no absolute contraindications to your upcoming surgery found at today' s visit. Please follow up with your PCP regarding the post nasal drip symptoms. Resident Involvement: Resident Care Provided Care Provided: Adult ED
[2018-05-29 13:14] LABS: BASO % 0.9 %; BASO ABS # 0.07 K/uL (0-0.2); EOS % 7.8 %; EOS ABS # 0.64 K/uL (0-0.5); HEMATOCRIT 40.1 % (42-52); HEMOGLOBIN 13.6 g/dL (14.0-18.0); IG# 0.01 K/uL (0.00-0.02); LYMPH ABS # 1.64 K/uL (1.2-3.4); MEAN CORPUSCULAR HEMOGLOBIN 31.6 pg (25-34); MEAN CORPUSCULAR HGB CONC 33.9 g/dl (32-36); MEAN PLATELET VOLUME 9.7 fL (7.4-10.4); MONO % 11.3 %; MONO ABS # 0.93 K/uL (0.11-0.59); NEUT % 59.9 %; NEUT ABS # 4.91 K/uL (1.4-6.5); PLATELET COUNT 264 K/uL (130-400); RED CELL DISTRIBUTION WIDTH CV 14.6 % (11.5-14.5); RED CELL DISTRIBUTION WIDTH SD 49.9 fL (36.4-46.3)
--- NOTE | 2018-05-29 13:25 | DIAGNOSTIC IMAGING REPORT ---
CHEST ONE VIEW PORTABLE CLINICAL HISTORY: 68 years-old Male presenting with nausea and cough x 1day. TECHNIQUE: Portable upright AP view of the chest was obtained. COMPARISON: 05/13/2018. FINDINGS: Atherosclerosis of the aortic arch. Cardiac silhouette normal in size. No focal opacity. No large effusion or pneumothorax. Osseous structures normal. A catheter-like object projects over the right upper quadrant, indeterminate and possibly outside the patient. IMPRESSION: 1. No acute cardiopulmonary disease. 2. A catheter-like object projects over the right upper quadrant, indeterminate and possibly outside the patient. Correlate clinically. Electronically signed by: Kenyon Law M.D. 05/29/2018 1:23 PM Dictated Date/Time: 05/29/2018 1:22 PM
[2018-05-29 13:36] LABS: ALBUMIN 3.1 gm/dl (3.4-5.0); CALCIUM 8.5 mg/dl (8.5-10.1); CREATININE 0.74 mg/dl (0.60-1.40); TOTAL PROTEIN 7.6 gm/dl (6.4-8.2)
[2018-05-29 14:10] VITALS: BP 114/73; PULSE 62; O2SAT 95
--- NOTE | 2018-05-29 14:19 | DIAGNOSTIC IMAGING REPORT ---
ABDOMEN LIMITED (US) CLINICAL HISTORY: 68 years-old Male presenting with RUQ Ultrasound - eval patency of bile duct stent. TECHNIQUE: Real-time grayscale and limited color Doppler ultrasound imaging of the abdomen limited to the right upper quadrant was performed. COMPARISON: CT from 05/13/2018. FINDINGS: Pancreas: Visualized portions of the pancreatic head and body normal. Liver: Normal echogenicity and echotexture. Well-defined hypoechoic echogenic lesions in the liver likely of hepatic cysts. The largest measures 4.3 cm. Main portal vein patent with normal directional flow. Biliary: Pneumobilia with the biliary stent in place. Echogenic material surrounds the common duct stent. No intrahepatic bladder ductal dilatation. Common bile duct measures up to 7-8 mm in diameter. Gallbladder: No evidence of gallstones, gallbladder wall thickening, gallbladder distention, or pericholecystic fluid or inflammatory change. Right kidney: Normal in appearance without evidence of hydronephrosis. Ascites: Trace ascites.. Other: None. IMPRESSION: 1. Common bile duct stent in place with echogenic material surrounding the stent. No intrahepatic bladder ductal dilatation, which suggests stent patency. No cholelithiasis. 2. Multiple hepatic cysts. Electronically signed by: Kenyon Law M.D. 05/29/2018 2:18 PM Dictated Date/Time: 05/29/2018 2:14 PM
== END 2018-05-29 15:15 | disposition home or self-care (01) ==
LOC: C.EDB 12:14 → C.EDC 15:15
DX: C22.1 Intrahepatic bile duct carcinoma (principal); R09.82 Postnasal drip; N40.0 Benign prostatic hyperplasia without lower urinary tract symptoms; Z79.82 Long term (current) use of aspirin

== ENCOUNTER 2019-01-18 10:38 | Inpatient (IN) ==
--- NOTE | 2019-01-18 11:34 | XRay Report ---
XR chest 1V portable HISTORY: 68 years-old Male Sepsis acute sepsis COMPARISON: Chest radiographs 01/17/2019 TECHNIQUE: Portable AP view of the chest FINDINGS: Cardiac mediastinal and hilar silhouettes are within normal limits. Mild right hemidiaphragmatic elev ation. Minimal subsegmental bibasilar densities suggest probable atelectasis. There is no pneumothora x, pleural effusion or overt pulmonary edema. Degenerative changes of the shoulders and spine. Cholec ystectomy clips noted. IMPRESSION: No acute process. The above report was generated using voice recognition software. It may contain grammatical, syntax o r spelling errors. Electronically signed by: Jayce Bloom M.D. 01/18/2019 11:33 AM
[2019-01-18] MEDS ORDERED: CEFEPIME 1,000 MG in SYRINGE 0 ML IV STA (11:46)
[2019-01-18 12:11] LABS: Basophils # (auto) 0.01 K/uL (0-0.2); Basophils % (auto) 0.1 %; Eosinophils # (auto) 0.03 K/uL (0-0.5); Eosinophils % (auto) 0.4 %; Hematocrit (blood only) 39.2 % (42-52); Hemoglobin 13.8 g/dL (14.0-18.0); Immature Granulocytes # (auto) 0.02 K/uL (0.00-0.02); Immature Granulocytes % (auto) 0.2 %; Lymphocytes # (auto) 0.94 K/uL (1.2-3.4); Lymphocytes % (auto) 11.2 %; Mean Corpuscular Hgb Conc 35.2 g/dL (32-36); Mean Corpuscular Volume 100.3 fL (80-100); Mean Platelet Volume 9.7 fL (7.4-10.4); Monocytes # (auto) 1.25 K/uL (0.11-0.59); Monocytes % (auto) 14.9 %; Neutrophils # (auto) 6.12 K/uL (1.4-6.5); Neutrophils % (auto) 73.2 %; Platelet Count 126 K/uL (130-400); RDW Coefficient of Variation 19.9 % (11.5-14.5); RDW Standard Deviation 71.6 fL (36.4-46.3); Red Blood Count 3.91 M/uL (4.7-6.1); White Blood Count 8.37 K/uL (4.8-10.8)
[2019-01-18] MEDS ORDERED: SODIUM CHLORIDE 0.9% 1000ML 1,000 ML IV ONE (12:20)
[2019-01-18 12:24] LABS: INR 1.2 (0.9-1.1); Partial Thromboplastin Ratio 1.2; Prothrombin Time 12.6 Seconds (9.0-12.0)
[2019-01-18 12:30] LABS: Albumin Level 3.4 gm/dl (3.4-5.0); BUN Creatinine Ratio 14.5 (10-20); Calcium 8.8 mg/dl (8.5-10.1); Creatinine Clr Calc Pharmacy 76.1 ml/min; Est GFR (African American) 104.5; Est GFR (Non-African American) 90.2; Potassium 3.9 mmol/L (3.5-5.1)
[2019-01-18 12:32] LABS: Albumin Globulin Ratio 0.9 (0.9-2); Bilirubin,Total 0.7 mg/dl (0.2-1); Globulin 3.9 gm/dl (2.5-4.0); Total Protein 7.3 gm/dl (6.4-8.2)
[2019-01-18] MEDS ORDERED: PROCHLORPERAZINE MALEATE 10 MG TAB PO PRN (13:45)
[2019-01-18] MEDS ORDERED: OXYCODONE HCL IR 5 MG TAB (IMMEDIATE RELEASE) PO PRN (13:45)
--- NOTE | 2019-01-18 14:08 | History & Physical Report ---
Date of Service January 18, 2019 Assessment & Plan (1) Bacteremia: Possible abdominal source in the setting of a retrofitted extrahepatic bile duct during a robotic surgery in May 2018. Continue coverage with cefepime. Infectious disease consult. Patient is not septic. (2) Cholangiocarcinoma: Currently on His Cytovene and XRT concurrently. Oncology and radiation oncology were consulted to help guide whether or not to continue treatment while patient is admitted for bacteremia. Continue pyridoxine, ranitidine, Zofran as needed, Compazine as needed, Tylenol as needed. Will obtain abdominal imaging. (3) BPH (benign prostatic hyperplasia): Continue tamsulosin per home regimen. (4) Ocular hypertension, bilateral: Continue eyedrops per home regimen. (5) DVT prophylaxis: Lovenox Full code as discussed with patient on admission Disposition-to [facility] with telemetry Nereida Unger DO [facility] hospitalist History of Present Illness Chief Complaint: Called in for abnormal blood culture results Primary Care Provider: Joshua Schroeder MD 68-year-old man with a history of cholangiocarcinoma diagnosed in 2018 presents by referral from his oncologist after blood culture results revealed 2 out of 2 bottles positive for gram-negative bacteria. The patient states that he has had chills starting Thursday night that it persisted nightly up until last night. They have lasted approximately 1-3 hours in duration and then have passed. Throughout the days he has felt well. He denies any fevers at his home. Blood cultures were drawn during treatment for radiation yesterday after vital signs revealed an increased temperature. He is otherwise felt well denying any vomiting. He reports chronic nausea secondary to his cancer and the chemotherapy associated with it. He denies any diarrhea and has normal bowel movements daily. Denies any abdominal pain, chest pain, shortness of breath, headache, joint pain, joint effusion, UTI symptoms. The patient does not have a port and is on oral chemotherapy. The patient denies any recent procedures as outpatient. He denies any sores in his mouth or skin changes. He denies any recent dental work. Review of systems is otherwise negative aside from drenching sweats last night as well as a chronic dry cough that has seemed worse in the last week and a runny nose that is worse in the last 4 weeks. He does get runny noses in the springtime around seasonal changes. Allergies Allergy/AdvReac Type Severity Reaction Status Date / Time No Known Allergies Allergy Verified 01/18/19 13:37 Home Medications Home Medications Medication Instructions Recorded Confirmed Type acetaminophen 500 mg tablet 1,000 mg PO Q6H PRN tab 06/25/18 01/18/19 History ranitidine 150 mg tablet 150 mg PO QAM 11/23/18 01/18/19 History capecitabine 500 mg tablet 1,500 mg PO MOTUWETHFR@ tab 12/20/18 01/18/19 History prochlorperazine maleate 10 mg 10 mg PO Q6H PRN 01/17/19 01/18/19 History tablet aspirin 81 mg PO QAM 01/18/19 01/18/19 History dorzolamide-timolol 1 drp OPB BID17 01/18/19 01/18/19 History flaxseed oil 1,000 mg PO QAM 01/18/19 01/18/19 History latanoprost 1 drp OPB DAILY@1700 01/18/19 01/18/19 History levofloxacin 500 mg PO QPM 01/18/19 01/18/19 History melatonin 3 mg PO HS PRN 01/18/19 01/18/19 History multivitamin [Multiple Vitamins] 1 tab PO QAM 01/18/19 01/18/19 History pyridoxine (vitamin B6) [Vitamin 25 mg PO QAM 01/18/19 01/18/19 History B-6] tamsulosin 0.4 mg PO QPM 01/18/19 01/18/19 History urea 1 applic TOPICAL DIRECTED 01/18/19 01/18/19 History Past Med/Surg History Medical History Cholangiocarcinoma (Acute) 04/27/18 H/O Clostridium difficile infection (Acute) Postoperative abscess (Acute) BPH (benign prostatic hyperplasia) (Chronic) Depression (Chronic) Glaucoma (Chronic) History of biliary stent insertion (Resolved) Replaced on 05/14/18 Pilonidal cyst (Resolved) Surgical History History of abdominal surgery (Acute) 06/04/18 - Robotic resection of extra hepaticbile duct with en bloc choie and periportal lymph node dissection and RNY right and lefthepaticojejunostomy and multiple wedge resections of the liver History of ERCP (Acute) History of esophagogastroduodenoscopy (EGD) (Acute) History of surgical removal of pilonidal cyst (Resolved) Family History Mother , at 93yo breast cancer x 2, thyroid cancer, growth in colon causing bowel obstruction;CT No problems noted. Father , at 86yo CHF, dementia, "liver failure", Cardiac disease No problems noted. Brother No problems noted. Sister No problems noted. Unknown No problems noted. Social History Preferred Language: Liberian Communication Ability: Effective Beliefs That Will Affect Care: None Current Living Situation: Alone Other Information That Helps Us Care for You: No Feels Safe at Home: Yes Safety Concerns: Feels Safe At This Time Smoking Status: Never smoker Hx Alcohol Use: Yes (Social) Hx Substance Use: No well-balanced diet: other caffeine: Yes (1 cup tea/day) during the past year weight has: increased > 10 lbs Review of Systems At least ten systems were reviewed and negative except as indicated in HPI above. Physical Exam Vital Signs (Past 24 Hours): Last Vital Signs Temp 37.0 C 01/18/19 10:59 Pulse 74 01/18/19 13:41 Resp 16 01/18/19 13:41 BP 127/82 01/18/19 13:41 Pulse Ox 98 01/18/19 13:41 CONSTITUTIONAL: WNWD, vitals as above, generally well-appearing EYES: PERRL, normal conjuctivae, no scleral icterus ENT: external ear and nose normal, oropharynx clear, no TM abnormality, no maxillary or ethmoid sinus tenderness NECK: trachea midline, no lymphadenopathy RESPIRATORY: clear to auscultation bilaterally, no crackles, rales or wheezes, normal respiratory effort CARDIOVASCULAR: regular rate and rhythm, S1 and 2 heard without murmurs, gallops or rubs, no JVD, no peripheral edema GASTROINTESTINAL: normal bowel sounds, soft, nontender, nondistended MUSCULOSKELETAL: no spinous process tenderness to palpation, strength 5/5 throughout, head is normocephalic and atraumatic, neck supple SKIN: warm and dry, no rashes NEUROLOGIC: No facial palsy, no dysarthria. CN 2-12 grossly intact, normal cognition, normal speech PSYCHIATRIC: alert cooperative and oriented to person, place and time. Results & Data Laboratory Results Short CBC 01/18/19 Range/Units 12:03 WBC 8.37 (4.8-10.8) K/uL Hgb 13.8 L (14.0-18.0) g/dL Hct 39.2 L (42-52) % Plt Count 126 L (130-400) K/uL BMP 01/18/19 12:03 Sodium 135 L Potassium 3.9 Chloride 104 Carbon Dioxide 26 BUN 12 Creatinine 0.85 Glucose 90 Calcium 8.8 Liver Function 01/18/19 Range/Units 12:03 Total Bilirubin 0.7 (0.2-1) mg/dl AST 44 H (15-37) U/L ALT 94 H (12-78) U/L Alkaline Phosphatase 95 (45-117) U/L Albumin 3.4 (3.4-5.0) gm/dl Diagnostic Findings XR chest 1V portable HISTORY: 68 years-old Male Sepsis acute sepsis COMPARISON: Chest radiographs 01/17/2019 TECHNIQUE: Portable AP view of the chest FINDINGS: Cardiac mediastinal and hilar silhouettes are within normal limits. Mild right hemidiaphragmatic elevation. Minimal subsegmental bibasilar densities suggest probable atelectasis. There is no pneumothorax, pleural effusion or overt pulmonary edema. Degenerative changes of the shoulders and spine. Cholecystectomy clips noted. IMPRESSION: No acute process. Medications Administered Cefepime 1gm NSS x 1L Code Status & VTE Plan Code Status Full VTE Prophylaxis Plan VTE Prophylaxis will be ordered: Yes Critical Care Time Critical Care Time: No
--- NOTE | 2019-01-18 17:36 | Emergency Department Note ---
Entered by Sheila Metz acting as a scribe for Zenon Choi History of Present Illness General Chief complaint: Infection Stated complaint: INFECTION Time Seen by Provider: 01/18/19 11:19 Source: patient History of Present Illness Provider complaint: chills Onset (ago): day(s) 5 Location: left and right Maximum Pain Intensity: 0 Quality: + other (chills) Associated symptoms: + denies other symptoms (denies pain with urination or recent diarrhea), + cough (dry) and + fever/chills (febrile yesterday); no rash The patient is a 68 year old male who presents to the Emergency Room with complaints of chills over the last 5 days. The patient states that he follows with Dr. Khoury and Dr. Rey and had blood cultures and a chest X-ray done yesterday as he was febrile. He states that Dr. Khoury wanted him to come to the ED yesterday. The patient denies having pain with urination. He states that he has had a dry cough. He denies having any new rashes or recent diarrhea. He reports a history of C. Diff in the past. Home Medications Home Medications Medication Instructions Recorded Confirmed Type acetaminophen 500 mg tablet 1,000 mg PO Q6H PRN tab 06/25/18 01/18/19 History ranitidine 150 mg tablet 150 mg PO QAM 11/23/18 01/18/19 History capecitabine 500 mg tablet 1,500 mg PO MOTUWETHFR@, tab 12/20/18 01/18/19 History prochlorperazine maleate 10 mg 10 mg PO Q6H PRN 01/17/19 01/18/19 History tablet aspirin 81 mg PO QAM 01/18/19 01/18/19 History dorzolamide-timolol 1 drp OPB BID17 01/18/19 01/18/19 History flaxseed oil 1,000 mg PO QAM 01/18/19 01/18/19 History latanoprost 1 drp OPB DAILY@1700 01/18/19 01/18/19 History levofloxacin 500 mg PO QPM 01/18/19 01/18/19 History melatonin 3 mg PO HS PRN 01/18/19 01/18/19 History multivitamin [Multiple Vitamins] 1 tab PO QAM 01/18/19 01/18/19 History pyridoxine (vitamin B6) [Vitamin 25 mg PO QAM 01/18/19 01/18/19 History B-6] tamsulosin 0.4 mg PO QPM 01/18/19 01/18/19 History urea 1 applic TOPICAL DIRECTED 01/18/19 01/18/19 History Allergies Allergy/AdvReac Type Severity Reaction Status Date / Time No Known Allergies Allergy Verified 01/18/19 13:37 Past Med/Surg History Medical History Cholangiocarcinoma (Acute) 04/27/18 H/O Clostridium difficile infection (Acute) Postoperative abscess (Acute) BPH (benign prostatic hyperplasia) (Chronic) Depression (Chronic) Glaucoma (Chronic) History of biliary stent insertion (Resolved) Replaced on 05/14/18 Pilonidal cyst (Resolved) Surgical History History of abdominal surgery (Acute) 06/04/18 - Robotic resection of extra hepaticbile duct with en bloc choie and periportal lymph node dissection and RNY right and lefthepaticojejunostomy and multiple wedge resections of the liver History of ERCP (Acute) History of esophagogastroduodenoscopy (EGD) (Acute) History of surgical removal of pilonidal cyst (Resolved) Family History Mother , at 93yo breast cancer x 2, thyroid cancer, growth in colon causing bowel obstruction;[place] No problems noted. Father , at 86yo CHF, dementia, "liver failure", Cardiac disease No problems noted. Brother No problems noted. Sister No problems noted. Unknown No problems noted. Social History Preferred Language: Belarusian Communication Ability: Effective Beliefs That Will Affect Care: None Current Living Situation: Alone Other Information That Helps Us Care for You: No Feels Safe at Home: Yes Safety Concerns: Feels Safe At This Time Smoking Status: Never smoker Hx Alcohol Use: Yes (Social) Hx Substance Use: No well-balanced diet: other caffeine: Yes (1 cup tea/day) during the past year weight has: increased > 10 lbs Review of Systems See HPI for pertinent positives & negatives. and A total of 10 systems reviewed and were otherwise negative Physical Exam Vital Signs Vital Signs - 24 hr 01/18/19 10:59 01/18/19 11:27 01/18/19 12:20 Temperature 37.0 C Temperature Source Oral Sepsis Recent Fever Within 48 Hours Yes Sepsis New/Unexplained Change in Mental Status No Sepsis Action Taken by Nursing No Action Required Pulse Rate 92 H Pulse Rate [Apical] 74 Pulse Rhythm [Apical] Regular Pulse Strength [Apical] Normal Respiratory Rate 16 16 Respiratory Effort / Characteristics Non-Labored Spontaneous Respiratory Depth Normal Respiratory Pattern Regular Blood Pressure 95/69 L Blood Pressure [Right Arm] 109/69 Blood Pressure Mean 77 Blood Pressure Mean [Right Arm] 82 Blood Pressure Position Sitting Blood Pressure Position [Right Arm] Lying Pulse Oximetry 96 96 99 Oxygen Delivery Method Room Air Room Air Room Air 01/18/19 12:54 01/18/19 13:41 01/18/19 16:15 Temperature Temperature Source Sepsis Recent Fever Within 48 Hours Sepsis New/Unexplained Change in Mental Status Sepsis Action Taken by Nursing Pulse Rate Pulse Rate [Apical] 74 68 Pulse Rhythm [Apical] Regular Regular Pulse Strength [Apical] Normal Normal Respiratory Rate 16 14 Respiratory Effort / Characteristics Non-Labored Spontaneous Non-Labored Spontaneous Respiratory Depth Normal Normal Respiratory Pattern Regular Regular Regular Blood Pressure Blood Pressure [Right Arm] 127/82 120/83 Blood Pressure Mean Blood Pressure Mean [Right Arm] 97 95 Blood Pressure Position Blood Pressure Position [Right Arm] Lying Lying Pulse Oximetry 98 98 Oxygen Delivery Method Room Air Room Air Room Air Physical Exam GENERAL: He is oriented to person, place, and time. He appears well-developed and well-nourished. He does not appear distressed. HENT: Exam performed. - Head: Normocephalic and atraumatic. - Right Ear: External ear normal. No mastoid tenderness. - Left Ear: External ear normal. No mastoid tenderness. - Mouth/Throat: The oropharynx is clear and moist. No trismus in the jaw. No dental abscesses or uvula swelling. No oropharyngeal exudate or tonsillar abscesses. EYES: Conjunctivae and EOM are normal. Pupils are equal, round, and reactive to light. Right eye exhibits no discharge. Left eye exhibits no discharge. No scleral icterus. NECK: Normal range of motion. Neck supple. No JVD present. No spinous process tenderness present. No carotid bruit present. No rigidity. No tracheal deviation and normal range of motion present. No Brudzinski's sign and no Kernig's sign noted. CV: Normal rate, regular rhythm, normal heart sounds and intact distal pulses. There is no peripheral edema. Palpable radial pulses bue. PULM/CHEST: Effort normal and breath sounds normal. No respiratory distress. No stridor. He has no wheezes. He has no rales. - Chest Wall: He exhibits no tenderness. ABD: The abdomen is soft. Bowel sounds are normal. He has no distension. No mass is present. There is no tenderness. There is no rebound, no guarding, no Bains' s sign and no tenderness at McBurney's point. Rovsig negative. MUSC/SKEL: Normal range of motion. There is no peripheral edema, tenderness or deformity. LYMPH: No cervical adenopathy. NEURO: He is alert and oriented to person, place, and time. He has normal strength. No cranial nerve deficit or sensory deficit. Coordination and gait normal. GCS eye subscore is 4. GCS verbal subscore is 5. GCS motor subscore is 6. Cerebellar tests wnl. SKIN: Skin is warm and dry. He is not diaphoretic. PSYCH: He has a normal mood and affect. Behavior is normal. Judgment and thought content normal. Course 1119: Review of EMR shows that the patient has a history of cholangiocarcinoma and sees Dr. Khoury. He had blood work yesterday, had a WBC count of 7.9 and had two blood cultures that showed gram negative bacilli. 1131: The patient was evaluated in room B6, and a complete history and physical examination were performed. 1219: Vital signs stable. Labs and imaging within normal limits. Given the patient's positive blood cultures, the patient will be treated with IV cefepime and be admitted to the hospital service. I discussed the patient's case with Gretchen Mendoza, admitting to Dr. Unger, who will evaluate the patient for further management. Consultations Consultation #1: Gretchen Mendoza Time: 12:19 Administered Medications Discontinued Medications Cefepime HCl 1,000 mg/ Syringe 11.3 mls @ 5.5 mls/min IV NOW STA Stop: 01/18/19 11:48 Last Admin: 01/18/19 12:20 Dose: 5.5 mls/min Documented by: [id number] Sodium Chloride (Nss 1000ml) 1,000 mls @ 999 mls/hr IV .Q1H1M ONE Stop: 01/18/19 13:20 Last Infusion: 01/18/19 13:37 Dose: 0 mls/hr Documented by: [id number] Admin: 01/18/19 12:41 Dose: 999 mls/hr Documented by: [id number] Medical Decision Making Medical Records Attestation: I reviewed the patient's medical records. Home Medications Current Medication List: was personally reviewed by me Laboratory Data Attestation: I reviewed the patient's lab results. Result diagrams: 01/18/19 12:03 01/18/19 12:03 Lab Results 01/18/19 01/18/19 01/18/19 Range/Units 12:03 12:03 12:03 WBC 8.37 (4.8-10.8) K/uL RBC 3.91 L (4.7-6.1) M/uL Hgb 13.8 L (14.0-18.0) g/dL Hct 39.2 L (42-52) % MCV 100.3 H (80-100) fL MCH 35.3 H (25-34) pg MCHC 35.2 (32-36) g/dL RDW Std Deviation 71.6 H (36.4-46.3) fL RDW Coeff of Sha 19.9 H (11.5-14.5) % Plt Count 126 L (130-400) K/uL MPV 9.7 (7.4-10.4) fL Immature Gran % (Auto) 0.2 % Neut % (Auto) 73.2 % Lymph % (Auto) 11.2 % [place] % (Auto) 14.9 % Eos % (Auto) 0.4 % Baso % (Auto) 0.1 % Immature Gran # (Auto) 0.02 (0.00-0.02) K/uL Neut # (Auto) 6.12 (1.4-6.5) K/uL Lymph # (Auto) 0.94 L (1.2-3.4) K/uL [place] # (Auto) 1.25 H (0.11-0.59) K/uL Eos # (Auto) 0.03 (0-0.5) K/uL Baso # (Auto) 0.01 (0-0.2) K/uL PT 12.6 H (9.0-12.0) Seconds INR 1.2 H (0.9-1.1) APTT 32.0 H (21.0-31.0) Seconds PTT Ratio 1.2 Sodium 135 L (136-145) mmol/L Potassium 3.9 (3.5-5.1) mmol/L Chloride 104 (98-107) mmol/L Carbon Dioxide 26 (21-32) mmol/L Anion Gap 5.0 (3-11) BUN 12 (7-18) mg/dl Creatinine 0.85 (0.6-1.4) mg/dl Est Cr Clr Drug Dosing 76.1 ml/min Est GFR ( Amer) 104.5 Est GFR (Non-Af Amer) 90.2 BUN/Creatinine Ratio 14.5 (10-20) Glucose 90 (70-99) mg/dl Lactate (0.4-2.0) mmol/L Calcium 8.8 (8.5-10.1) mg/dl Total Bilirubin 0.7 (0.2-1) mg/dl AST 44 H (15-37) U/L ALT 94 H (12-78) U/L Alkaline Phosphatase 95 (45-117) U/L Total Protein 7.3 (6.4-8.2) gm/dl Albumin 3.4 (3.4-5.0) gm/dl Globulin 3.9 (2.5-4.0) gm/dl Albumin/Globulin Ratio 0.9 (0.9-2) 01/18/19 Range/Units 12:03 WBC (4.8-10.8) K/uL RBC (4.7-6.1) M/uL Hgb (14.0-18.0) g/dL Hct (42-52) % MCV (80-100) fL MCH (25-34) pg MCHC (32-36) g/dL RDW Std Deviation (36.4-46.3) fL RDW Coeff of Sha (11.5-14.5) % Plt Count (130-400) K/uL MPV (7.4-10.4) fL Immature Gran % (Auto) % Neut % (Auto) % Lymph % (Auto) % [place] % (Auto) % Eos % (Auto) % Baso % (Auto) % Immature Gran # (Auto) (0.00-0.02) K/uL Neut # (Auto) (1.4-6.5) K/uL Lymph # (Auto) (1.2-3.4) K/uL [place] # (Auto) (0.11-0.59) K/uL Eos # (Auto) (0-0.5) K/uL Baso # (Auto) (0-0.2) K/uL PT (9.0-12.0) Seconds INR (0.9-1.1) APTT (21.0-31.0) Seconds PTT Ratio Sodium (136-145) mmol/L Potassium (3.5-5.1) mmol/L Chloride (98-107) mmol/L Carbon Dioxide (21-32) mmol/L Anion Gap (3-11) BUN (7-18) mg/dl Creatinine (0.6-1.4) mg/dl Est Cr Clr Drug Dosing ml/min Est GFR ( Amer) Est GFR (Non-Af Amer) BUN/Creatinine Ratio (10-20) Glucose (70-99) mg/dl Lactate 1.0 (0.4-2.0) mmol/L Calcium (8.5-10.1) mg/dl Total Bilirubin (0.2-1) mg/dl AST (15-37) U/L ALT (12-78) U/L Alkaline Phosphatase (45-117) U/L Total Protein (6.4-8.2) gm/dl Albumin (3.4-5.0) gm/dl Globulin (2.5-4.0) gm/dl Albumin/Globulin Ratio (0.9-2) Imaging Data Radiologist's Impression: Radiology results as stated below per my review and the radiologist's interpretation: XR chest 1V portable HISTORY: 68 years-old Male Sepsis acute sepsis COMPARISON: Chest radiographs 01/17/2019 TECHNIQUE: Portable AP view of the chest FINDINGS: Cardiac mediastinal and hilar silhouettes are within normal limits. Mild right hemidiaphragmatic elevation. Minimal subsegmental bibasilar densities suggest probable atelectasis. There is no pneumothorax, pleural effusion or overt pulmonary edema. Degenerative changes of the shoulders and spine. Cholecystectomy clips noted. IMPRESSION: No acute process. The above report was generated using voice recognition software. It may contain grammatical, syntax or spelling errors. Electronically signed by: Jayce Bloom M.D. 01/18/2019 11:33 AM Blood Pressure Blood Pressure Findings: Low blood pressure Blood Pressure Disposition: further management by hospitalist [facility] Narrative 1119: Review of EMR shows that the patient has a history of cholangiocarcinoma and sees Dr. Khoury. He had blood work yesterday, had a WBC count of 7.9 and had two blood cultures that showed gram negative bacilli. 1131: The patient was evaluated in room B6, and a complete history and physical examination were performed. 1219: Vital signs stable. Labs and imaging within normal limits. Given the pat ient's positive blood cultures, the patient will be treated with IV cefepime and be admitted to the hospital service. I discussed the patient's case with Gretchen Mendoza, admitting to Dr. Unger, who will evaluate the patient for further management. Impression & Plan Bacteremia Discharge Plan Visit Data *Final* Discharge Date/Time: 01/18/19 14:01 Chief Complaint: Infection Stated Complaint: INFECTION ED Provider: Zenon Choi Discharge Problem: Bacteremia Patient Disposition: Admitted As Inpatient Discharge Instructions Interventions: ED Discharge Assessment Last Done: 01/18/19 14:01 The scribe's documentation has been prepared under my direction and personally reviewed by me in its entirety. I confirm that the note above accurately reflects all work, treatment, procedures, and medical decision making performed by me.
[2019-01-18] MEDS ORDERED: ONDANSETRON INJ 2 MG/ML 2 ML VIAL IV PRN (17:41)
[2019-01-18] MEDS ORDERED: POLYETHYLENE (MIRALAX) 17 GM PACK PO PRN (17:41)
[2019-01-18] MEDS ORDERED: CEFEPIME CONSULT ACTIVE PRN (17:53)
[2019-01-18] MEDS: ACETAMINOPHEN 325 MG TAB PO PRN (18:13)
--- NOTE | 2019-01-18 20:12 | Oncology Consultation ---
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 -Hold capecitabine due to bacteremia/infection - discussed with patient. He is on IV cefepime currently. -follow up ID and sensitivity and recommend ID consultation regarding antibiotic and length of treatment -recommend check CT scan and -Also recommend consider GI consult as well given his gram negative bacilli bacteremia and history of cholangiocarcinoma and LFT abnormal thank you for consult. discussed with Dr Unger Reason for consult: Cholangiocarcinoma History of Present Illness Attending Physician: Marc Whitfield MD History of present illness: 68-year-old male with cholangiocarcinoma diagnosed in 2018 status post laparoscopic exploration, robotic assisted resection of extrahepatic bile duct, with en bloc cholecystectomy and periportal lymph node dissection and [id number] right and left hepaticojejunostomy and multiple wedge resection of liver at [facility] in June 04, 2018, pT3 pN0cM0. Pathologic stage he is on adjuvant treatment. He received 2 cycles of gemcitabine and gemcitabine, but gemcitabine was discontinued due to neutropenia. He then treated with single agent capecitabine x 4 cycles. He is now on concurrent chemoradiation with capecitabine He went for radiation yesterday and was noted to have a fever of 100.6. He declined to go to ER at that time and he had CXR labs including blood cultures and was started on levaquin. He was not neutropenic. Blood cultures positive for gram negative bacilli and he was advised to hold capecitabine and go to ER. He is admitted for gram negative bacilli bacteremia. Patient states that he had fatigue and decreased appetite and nausea for the past week. He denies abdominal pain. He states that on Thursday night he had chills, no rigors but could not get warm for about 3 hrs and states that he used a heater. He did not check temperature but said he did not feel feverish at the time. He states that he also felt achy and flulike and had a nonproductive cough and runny nose for about a week. He denies any shortness of breath. He states that he took tylenol and felt better on Thursday during the day, but on Thursday night he had chills for about half hour then went away. On Thursday he also had chills during the night. He denies any dysuria. He denies any diarrhea. He states that yesterday after he left radiation oncology office he went to a meeting then went to pharmacy and took the levaquin when he got home. He said he checked temperature and was 98 when he went home. During the night he had sweats. He states that he feels good today. Hand-foot syndrome improved. Allergies Allergy/AdvReac Type Severity Reaction Status Date / Time No Known Allergies Allergy Verified 01/18/19 13:37 Home Medications Home Medications Medication Instructions Recorded Confirmed Type acetaminophen 500 mg tablet 1,000 mg PO Q6H PRN tab 06/25/18 01/18/19 History ranitidine 150 mg tablet 150 mg PO QAM 11/23/18 01/18/19 History capecitabine 500 mg tablet 1,500 mg PO MOTUWETHFR@ tab 12/20/18 01/18/19 History prochlorperazine maleate 10 mg 10 mg PO Q6H PRN 01/17/19 01/18/19 History tablet aspirin 81 mg PO QAM 01/18/19 01/18/19 History dorzolamide-timolol 1 drp OPB BID17 01/18/19 01/18/19 History flaxseed oil 1,000 mg PO QAM 01/18/19 01/18/19 History latanoprost 1 drp OPB DAILY@1700 01/18/19 01/18/19 History levofloxacin 500 mg PO QPM 01/18/19 01/18/19 History melatonin 3 mg PO HS PRN 01/18/19 01/18/19 History multivitamin [Multiple Vitamins] 1 tab PO QAM 01/18/19 01/18/19 History pyridoxine (vitamin B6) [Vitamin 25 mg PO QAM 01/18/19 01/18/19 History B-6] tamsulosin 0.4 mg PO QPM 01/18/19 01/18/19 History urea 1 applic TOPICAL DIRECTED 01/18/19 01/18/19 History Patient History Medical History Cholangiocarcinoma (Acute) 04/27/18 H/O Clostridium difficile infection (Acute) Postoperative abscess (Acute) BPH (benign prostatic hyperplasia) (Chronic) Depression (Chronic) Glaucoma (Chronic) History of biliary stent insertion (Resolved) Replaced on 05/14/18 Pilonidal cyst (Resolved) Surgical History History of abdominal surgery (Acute) 06/04/18 - Robotic resection of extra hepaticbile duct with en bloc choie and periportal lymph node dissection and RNY right and lefthepaticojejunostomy and multiple wedge resections of the liver History of ERCP (Acute) History of esophagogastroduodenoscopy (EGD) (Acute) History of surgical removal of pilonidal cyst (Resolved) Family History Mother , at 93yo breast cancer x 2, thyroid cancer, growth in colon causing bowel obstruction;[place] No problems noted. Father , at 86yo CHF, dementia, "liver failure", Cardiac disease No problems noted. Brother No problems noted. Sister No problems noted. Unknown No problems noted. Social History Preferred Language: Ghanaian Communication Ability: Effective Beliefs That Will Affect Care: None Current Living Situation: Alone Other Information That Helps Us Care for You: No Feels Safe at Home: Yes Safety Concerns: Feels Safe At This Time Smoking Status: Never smoker Hx Alcohol Use: Yes (Social) Hx Substance Use: No well-balanced diet: other caffeine: Yes (1 cup tea/day) during the past year weight has: increased > 10 lbs Review of Systems as stated per HPI. otherwise negative. Physical Exam Vital Signs (Past 24 Hours): Last Vital Signs Temp 36.6 C 01/18/19 19:47 Pulse 88 01/18/19 19:47 Resp 20 01/18/19 19:47 BP 118/73 01/18/19 19:47 Pulse Ox 95 01/18/19 19:47 Gen: well developed well nourished male in NAD HEENT: Anicteric no pallor no mucositis Lungs: CTAB CV: S1 S2 RRR no murmurs appreciated Abd: +BS soft NT/ND well healed scar Ext: no edema no cyanosis +erythema of palms and soles improved, no blisters Neuro:alert and orientedx3 grossly nonfocal exam Results & Data Laboratory Results 01/18/19CBC showed WBC 8.37 hemoglobin 13.8 hematocrit 39.2 platelet count 126 ANC 6.12 absolute lymphs 0.94 absolute monos 1.25 Sodium 135 potassium 3.9 chloride 104 bicarb 26 BUN 12 creatinine 0.85 glucose 90 AST 44 ALT 94 total protein 7.3 albumin 3.4 total bilirubin 0.7 01/17/19 Blood cultures- gram-negative bacilli Diagnostic Findings Chest x-ray no acute process. Mild right hemidiaphragm elevation. Minimal subsegmental bibasilar densities suggest probable atelectasis
[2019-01-18] MEDS: LATANOPROST 0.005% OP SOLN 2.5 ML BTL OPB SCH (21:08)
[2019-01-18] MEDS: CEFEPIME 2,000 MG in SYRINGE 7.5 ML IV SCH (21:08)
[2019-01-18] MEDS: DORZOLAMIDE/TIMOLOL 22.3/6.8MG/ML 10 ML BTL OPB SCH (21:08)
[2019-01-18] MEDS ORDERED: IOVERSOL 100ml IV PRN ×2 (22:12)
--- NOTE | 2019-01-18 22:30 | CT Scan Report ---
ADDENDUM COMPARISON: Outside chest CT from 09/28/2018. No other aspects of the report are addended. The impression remains the same. Electronically signed by: Kenyon Law M.D. 02/01/2019 3:[address] chest w con CLINICAL HISTORY: 68 years-old Male presenting with h/o cholangiocarcinoma, gram-negative bacteremia. TECHNIQUE: Multidetector CT imaging of the chest was performed after the administration of intravenou s contrast. IV contrast: 93 mL of Optiray 320. One or more dose lowering techniques were used consist ent with the principles of ALARA (as low as reasonably achievable), including automatic exposure cont rol, mA or kV adjustment to individual patient size, and/or use of iterative reconstruction. COMPARISON: None. CT DOSE (mGy.cm): The estimated cumulative dose is 769.46. FINDINGS: Patrol Commander topogram: Scoliosis. Soft tissues: Normal thyroid and thoracic inlet. No axillary, supraclavicular, mediastinal, or hilar lymphadenopathy. Atherosclerosis of the aorta. Normal heart size. Coronary artery calcification. No p ericardial or pleural effusion. Pneumobilia. Multiple hepatic cysts. Intrahepatic biliary ductal dila tation. Abnormal soft tissue in the liver hilum. Lungs and airways: No pneumothorax. Central airways patent. Pulmonary arteries are not significantly enlarged relative to adjacent bronchi. No interlobular septal thickening. Bandlike and groundglass de pendent changes likely atelectasis. Musculoskeletal: Degenerative changes of the spine. IMPRESSION: 1. No acute intrathoracic metastatic disease. Please see separately dictated CT of the abdomen or pe lvis. Electronically signed by: Kenyon Law M.D. 01/18/2019 10:27 PM
--- NOTE | 2019-01-18 22:41 | CT Scan Report ---
CT abd pelvis oral and IV con CLINICAL HISTORY: 68 years-old Male presenting with h/o cholangiocarcinoma, +GN bacteremia. TECHNIQUE: Multidetector CT of the abdomen and pelvis was performed after the administration of oral and intravenous contrast. IV contrast: 93 mL of Optiray 320. One or more dose lowering techniques wer e used consistent with the principles of ALARA (as low as reasonably achievable), including automatic exposure control, mA or kV adjustment to individual patient size, and/or use of iterative reconstruc tion. COMPARISON: Nondiagnostic CT from 12/13/[address] from 05/13/2018.. CT DOSE (mGy.cm): The estimated cumulative dose is 769.46 mGy.cm. FINDINGS: Party Host/Hostess topogram: Unremarkable. Lung bases: Normal heart size. Coronary artery calcification. No pericardial or pleural effusion. Min imal dependent changes likely atelectasis. Liver: Normal morphology. Several well-defined hypodense lesions throughout the liver likely hepatic cysts similar to prior exams. Patent hepatic vasculature. Biliary: Moderate diffuse intrahepatic biliary ductal dilatation with pneumobilia as on prior exam. T he prior common bile duct stent has been removed. Suspected postsurgical changes of hepaticojejunosto my. Interval cholecystectomy. Pancreas: Normal. Spleen: Normal. Adrenal glands: Normal. Kidneys and ureters: Normal. No hydronephrosis. Bladder: Normal. Pelvic organs: Prostate enlargement likely secondary to benign prostatic hyperplasia. Bowel: Mild stool burden throughout normal caliber colon. The appendix is atrophic and normal. No bow el obstruction. Small sliding-type hiatal hernia. Patent enteroenteric anastomosis in the left mid ab domen from prior exam. Postsurgical changes of hepaticojejunostomy. Peritoneal cavity: No free fluid or intraperitoneal gas. Lymph nodes: No enlarged lymph nodes in the abdomen or pelvis. Vasculature: Atherosclerosis of the normal caliber abdominal aorta. IVC patent. Abdominal wall: Fat-containing left inguinal hernia suspected. Musculoskeletal: Degenerative changes of the spine. IMPRESSION: 1. Interval postsurgical change of cholecystectomy and hepaticojejunostomy. Patent enteroenteric bertram stomosis. No bowel obstruction or other postsurgical complication. 2. Removal of the prior common duct stent. Unchanged pneumobilia and moderate intrahepatic biliary d uctal dilatation. Pneumobilia as expected in the setting of a hepaticojejunostomy. 3. Prostatomegaly. 4. Multiple hepatic cysts. 5. No lymphadenopathy or evidence of metastatic disease in abdomen or pelvis. Electronically signed by: Kenyon Law M.D. 01/18/2019 10:40 PM
[2019-01-19] MEDS: CEFEPIME 2,000 MG in SYRINGE 7.5 ML IV SCH ×3 (03:44→21:02)
[2019-01-19] MEDS: ACETAMINOPHEN 325 MG TAB PO PRN (03:52)
[2019-01-19 05:41] LABS: Hemoglobin 12.4 g/dL (14.0-18.0); Mean Corpuscular Hgb Conc 34.4 g/dL (32-36); Mean Platelet Volume 9.9 fL (7.4-10.4); Platelet Count 127 K/uL (130-400); RDW Coefficient of Variation 19.8 % (11.5-14.5); RDW Standard Deviation 71.2 fL (36.4-46.3)
[2019-01-19 05:58] LABS: Calcium 8.2 mg/dl (8.5-10.1); Creatinine Clr Calc Pharmacy 92.4 ml/min; Est GFR (African American) 113.2; Est GFR (Non-African American) 97.7; Potassium 3.4 mmol/L (3.5-5.1)
[2019-01-19] MEDS: PYRIDOXINE HCL 50 MG TAB PO SCH (08:00)
[2019-01-19] MEDS: ASPIRIN 81 MG ECTAB PO SCH (08:01)
[2019-01-19] MEDS: DORZOLAMIDE/TIMOLOL 22.3/6.8MG/ML 10 ML BTL OPB SCH ×2 (08:02→16:31)
[2019-01-19] MEDS: ENOXAPARIN INJ 40 MG/0.4 ML SYR SQ SCH (08:03)
[2019-01-19] MEDS ORDERED: POTASSIUM CHLORIDE 10 MEQ TABCR PO STA (08:44)
[2019-01-19] MEDS ORDERED: TAMSULOSIN HCL 0.4 MG CAP PO SCH ×2 (09:00→23:30)
[2019-01-19] MEDS ORDERED: NON-FORMULARY MEDICATION (Flaxseed Oil 1,000 MG) PO SCH (09:00)
[2019-01-19] MEDS: NSS + 20MEQ KCL 20 MEQ/1,000 ML BAG IV SCH ×2 (09:26→21:01)
--- NOTE | 2019-01-19 11:03 | Infectious Disease Consult ---
Date of Consultation January 19, 2019 Assessment & Plan (1) Bacteremia: 68-year-old male with cholangiocarcinoma status post resection on chemotherapy, now with gram-negative bacteremia. Likely source relates to previous biliary surgery, as patient has no indwelling central lines, and no obvious other localizing complaints. Agree with use of cefepime pending final identification and sensitivity. Will make further recommendations once available. Will follow. (2) Cholangiocarcinoma: History of Present Illness Reason for Consultation: Gram-negative bacteremia Attending Physician: Marc Whitfield MD History of Present Illness 68-year-old male with history of cholangiocarcinoma diagnosed 2018, status post comp located surgical resection, and now on chemotherapy. Reports previous bouts of sepsis and fungemia. Was in usual state of health until the past week or so when he noted onset of chills, associated with some fatigue and generally not feeling well. Was found to be febrile and blood cultures were drawn and now reported positive for gram-negative bacilli. Patient took 1 dose of levofloxacin as an outpatient, now admitted and being treated with IV cefepime. Feeling better since first dose of levofloxacin. Has had chronic dry cough which is slightly worsened in the past several weeks. Denies any significant worsening abdominal pain, nausea, vomiting, diarrhea, or urinary complaints. Has previous history of C. difficile infection. Abdominal and chest CT showed no obvious source of infection. Allergies Allergy/AdvReac Type Severity Reaction Status Date / Time No Known Allergies Allergy Verified 01/18/19 13:37 Home Medications Home Medications Medication Instructions Recorded Confirmed Type acetaminophen 500 mg tablet 1,000 mg PO Q6H PRN tab 06/25/18 01/18/19 History ranitidine 150 mg tablet 150 mg PO QAM 11/23/18 01/18/19 History capecitabine 500 mg tablet 1,500 mg PO MOTUWETHFR@ tab 12/20/18 01/18/19 History prochlorperazine maleate 10 mg 10 mg PO Q6H PRN 01/17/19 01/18/19 History tablet aspirin 81 mg PO QAM 01/18/19 01/18/19 History dorzolamide-timolol 1 drp OPB BID17 01/18/19 01/18/19 History flaxseed oil 1,000 mg PO QAM 01/18/19 01/18/19 History latanoprost 1 drp OPB DAILY@1700 01/18/19 01/18/19 History levofloxacin 500 mg PO QPM 01/18/19 01/18/19 History melatonin 3 mg PO HS PRN 01/18/19 01/18/19 History multivitamin [Multiple Vitamins] 1 tab PO QAM 01/18/19 01/18/19 History pyridoxine (vitamin B6) [Vitamin 25 mg PO QAM 01/18/19 01/18/19 History B-6] tamsulosin 0.4 mg PO QPM 01/18/19 01/18/19 History urea 1 applic TOPICAL DIRECTED 01/18/19 01/18/19 History Patient History Medical History Cholangiocarcinoma (Acute) 04/27/18 H/O Clostridium difficile infection (Acute) Postoperative abscess (Acute) BPH (benign prostatic hyperplasia) (Chronic) Depression (Chronic) Glaucoma (Chronic) History of biliary stent insertion (Resolved) Replaced on 05/14/18 Pilonidal cyst (Resolved) Surgical History History of abdominal surgery (Acute) 06/04/18 - Robotic resection of extra hepaticbile duct with en bloc choie and periportal lymph node dissection and RNY right and lefthepaticojejunostomy and multiple wedge resections of the liver History of ERCP (Acute) History of esophagogastroduodenoscopy (EGD) (Acute) History of surgical removal of pilonidal cyst (Resolved) Family History Mother , at 93yo breast cancer x 2, thyroid cancer, growth in colon causing bowel obstruction;[place] No problems noted. Father , at 86yo CHF, dementia, "liver failure", Cardiac disease No problems noted. Brother No problems noted. Sister No problems noted. Unknown No problems noted. Social History Preferred Language: Niuean Communication Ability: Effective Beliefs That Will Affect Care: None Current Living Situation: Alone Other Information That Helps Us Care for You: No Feels Safe at Home: Yes Safety Concerns: Feels Safe At This Time Smoking Status: Never smoker Hx Alcohol Use: Yes (Social) Hx Substance Use: No well-balanced diet: other caffeine: Yes (1 cup tea/day) during the past year weight has: increased > 10 lbs Review of Systems All systems were reviewed and are negative except as per HPI Physical Exam Vital Signs (Past 24 Hours): Last Vital Signs Temp 36.6 C 01/19/19 07:48 Pulse 76 01/19/19 07:48 Resp 18 01/19/19 07:48 BP 102/68 01/19/19 07:48 Pulse Ox 97 01/19/19 07:48 Constitutional: WD/WN, vitals as above comfortable; no acute distress Eyes: PERRL, conjunctivae normal, anicteric sclerae ENMT: external ear and nose normal, oropharynx normal Neck: trachea midline, no thyromegaly neck nontender Respiratory: normal respiratory effort, lungs clear to auscultation normal percussion; does not use accessory muscles Cardiovascular: Rate/Rhythm: regular rate and regular rhythm Heart Sounds: normal S1 and normal S2; no gallop, no murmur and no cardiac rub Vessels: normal peripheral pulses; no JVD Gastrointestinal (Abdomen): normal bowel sounds, soft, nontender, no hepatosplenomegaly Musculoskeletal: no cyanosis or clubbing, extremities motor strength 5/5 Spine: thoracic spine normal to inspection and lumbar spine normal to inspection; no cervical spinal tenderness Skin: no rashes, warm and dry normal turgor; no lesions Neurologic: patellar DTR's 2+ bilat, sensation intact no focal motor deficits Psychiatric: A+Ox3, euthymic affect Orientation: cooperative Lymphatic: no cervical or axillary lymphadenopathy no inguinal lymphadenopathy Results & Data Laboratory Results Short CBC 01/18/19 01/19/19 Range/Units 12:03 05:16 WBC 8.37 7.10 (4.8-10.8) K/uL Hgb 13.8 L 12.4 L (14.0-18.0) g/dL Hct 39.2 L 36.0 L (42-52) % Plt Count 126 L 127 L (130-400) K/uL BMP 01/18/19 01/19/19 12:03 05:16 Sodium 135 L 135 L Potassium 3.9 3.4 L Chloride 104 105 Carbon Dioxide 26 26 BUN 12 9 Creatinine 0.85 0.70 Glucose 90 122 H Calcium 8.8 8.2 L Liver Function 01/18/19 Range/Units 12:03 Total Bilirubin 0.7 (0.2-1) mg/dl AST 44 H (15-37) U/L ALT 94 H (12-78) U/L Alkaline Phosphatase 95 (45-117) U/L Albumin 3.4 (3.4-5.0) gm/dl Diagnostic Findings CT abd pelvis oral and IV con CLINICAL HISTORY: 68 years-old Male presenting with h/o cholangiocarcinoma, +GN bacteremia. TECHNIQUE: Multidetector CT of the abdomen and pelvis was performed after the administration of oral and intravenous contrast. IV contrast: 93 mL of Optiray 320. One or more dose lowering techniques were used consistent with the principles of ALARA (as low as reasonably achievable), including automatic exposure control, mA or kV adjustment to individual patient size, and/or use of iterative reconstruction. COMPARISON: Nondiagnostic CT from 12/13/[address] from 05/13/2018.. CT DOSE (mGy.cm): The estimated cumulative dose is 769.46 mGy.cm. FINDINGS: Count Team Member topogram: Unremarkable. Lung bases: Normal heart size. Coronary artery calcification. No pericardial or pleural effusion. Minimal dependent changes likely atelectasis. Liver: Normal morphology. Several well-defined hypodense lesions throughout the liver likely hepatic cysts similar to prior exams. Patent hepatic vasculature. Biliary: Moderate diffuse intrahepatic biliary ductal dilatation with pneumobilia as on prior exam. The prior common bile duct stent has been removed. Suspected postsurgical changes of hepaticojejunostomy. Interval cholecystectomy. Pancreas: Normal. Spleen: Normal. Adrenal glands: Normal. Kidneys and ureters: Normal. No hydronephrosis. Bladder: Normal. Pelvic organs: Prostate enlargement likely secondary to benign prostatic hyperplasia. Bowel: Mild stool burden throughout normal caliber colon. The appendix is atrophic and normal. No bowel obstruction. Small sliding-type hiatal hernia. Patent enteroenteric anastomosis in the left mid abdomen from prior exam. Postsurgical changes of hepaticojejunostomy. Peritoneal cavity: No free fluid or intraperitoneal gas. Lymph nodes: No enlarged lymph nodes in the abdomen or pelvis. Vasculature: Atherosclerosis of the normal caliber abdominal aorta. IVC patent. Abdominal wall: Fat-containing left inguinal hernia suspected. Musculoskeletal: Degenerative changes of the spine. IMPRESSION: 1. Interval postsurgical change of cholecystectomy and hepaticojejunostomy. Patent enteroenteric anastomosis. No bowel obstruction or other postsurgical complication. 2. Removal of the prior common duct stent. Unchanged pneumobilia and moderate intrahepatic biliary ductal dilatation. Pneumobilia as expected in the setting of a hepaticojejunostomy. 3. Prostatomegaly. 4. Multiple hepatic cysts. 5. No lymphadenopathy or evidence of metastatic disease in abdomen or pelvis. Electronically signed by: Kenyon Law M.D. 01/18/2019 10:40 PM
--- NOTE | 2019-01-19 11:23 | Gastrointestinal Consultation ---
Date of Consultation January 19, 2019 Assessment & Plan (1) Bacteremia: 68 year old male with history of cholangiocarcinoma s/p robotic assisted resection of extrahepatic bile duct, cholecystectomy and periportal lymph node dissection and Mary-en-Y w/ hepaticojejunostomy who presents with fever/chills at home, OP blood cultures w/ gram negative rods started on IV cefepime. He is afebrile this AM. Continue IV ABX Repeat LFTs Obtain MRCP In event of elevated LFTs or need for biliary decompression/evaluation will need to discuss transfer given anatomical changes to include Mary-en-Y w/ hepaticojejunostomy. Thank you for allowing us to participate in the care of this patient. Please ramiro l with any acute changes, questions or concerns. Please see addendum below with additional recommendation from my supervising physician. Present on Admission?: Yes Supervising Physician Co-Signing Physician Notes Late entry: Patient was seen and examined on 01/19 with DILLON Kurtz whose note reflects our findings and plan. History of Present Illness Reason for Consultation: gram negative rods Requesting Physician: Roseann Attending Physician: Marc Whitfield MD History of Present Illness 68 year male w/ cholangiocarcinoma s/p robotic assisted resection of extrahepatic bile duct, with en bloc cholecystectomy and periportal lymph node dissection and Mary-en-Y right and left hepaticojejunostomy and multiple wedge resection of liver in [facility] in May 2018 on Cytovene and radiation who presents through the ED for abnormal blood culture growing gram negative rods. Pt was seen and evaluated, chart reviewed. Denies abdominal pain. No nausea, vomiting. No RUQ pain. No dark urine, light stools. No pruritus. Started having chills, fevers on Thursday. No urinary symptoms. Today, he is afebrile no chills Urine culture: pending Blood culture: gram negative rods Colonoscopy 2017: Diverticulosis in the sigmoid colon.No specimens collected.Otherwise normal to the terminal ileum, with retroflexed views of the ascending colon and rectum EGD/EUS 2018: hypoechoic mass in mid portion of CBD 18 x 18 mm. 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, addendum carcinoma ERCP 2018: malignant appearing stricture just below the hepatic duct bifurcation and CBD stent was placed Allergies Allergy/AdvReac Type Severity Reaction Status Date / Time No Known Allergies Allergy Verified 01/18/19 13:37 Home Medications Home Medications Medication Instructions Recorded Confirmed Type acetaminophen 500 mg tablet 1,000 mg PO Q6H PRN tab 06/25/18 01/18/19 History ranitidine 150 mg tablet 150 mg PO QAM 11/23/18 01/18/19 History capecitabine 500 mg tablet 1,500 mg PO MOTUWETHFR@, tab 12/20/18 01/18/19 History prochlorperazine maleate 10 mg 10 mg PO Q6H PRN 01/17/19 01/18/19 History tablet aspirin 81 mg PO QAM 01/18/19 01/18/19 History dorzolamide-timolol 1 drp OPB BID17 01/18/19 01/18/19 History flaxseed oil 1,000 mg PO QAM 01/18/19 01/18/19 History latanoprost 1 drp OPB DAILY@1700 01/18/19 01/18/19 History levofloxacin 500 mg PO QPM 01/18/19 01/18/19 History melatonin 3 mg PO HS PRN 01/18/19 01/18/19 History multivitamin [Multiple Vitamins] 1 tab PO QAM 01/18/19 01/18/19 History pyridoxine (vitamin B6) [Vitamin 25 mg PO QAM 01/18/19 01/18/19 History B-6] tamsulosin 0.4 mg PO QPM 01/18/19 01/18/19 History urea 1 applic TOPICAL DIRECTED 01/18/19 01/18/19 History Patient History Medical History Cholangiocarcinoma (Acute) 04/27/18 H/O Clostridium difficile infection (Acute) Postoperative abscess (Acute) BPH (benign prostatic hyperplasia) (Chronic) Depression (Chronic) Glaucoma (Chronic) History of biliary stent insertion (Resolved) Replaced on 05/14/18 Pilonidal cyst (Resolved) Surgical History History of abdominal surgery (Acute) 06/04/18 - Robotic resection of extra hepaticbile duct with en bloc choie and periportal lymph node dissection and RNY right and lefthepaticojejunostomy and multiple wedge resections of the liver History of ERCP (Acute) History of esophagogastroduodenoscopy (EGD) (Acute) History of surgical removal of pilonidal cyst (Resolved) Family History Mother , at 93yo breast cancer x 2, thyroid cancer, growth in colon causing bowel obstruction;LA No problems noted. Father , at 86yo CHF, dementia, "liver failure", Cardiac disease No problems noted. Brother No problems noted. Sister No problems noted. Unknown No problems noted. Social History Communication Ability: Effective Beliefs That Will Affect Care: None Current Living Situation: Alone Other Information That Helps Us Care for You: No Feels Safe at Home: Yes Safety Concerns: Feels Safe At This Time Smoking Status: Never smoker Hx Alcohol Use: Yes (Social) Hx Substance Use: No well-balanced diet: other caffeine: Yes (1 cup tea/day) during the past year weight has: increased > 10 lbs Review of Systems Constitutional: no fever, no chills, no fatigue and no anorexia Respiratory: no cough, no dyspnea and no wheezing Cardiovascular: no chest pain, no dyspnea and no orthopnea Gastrointestinal: no abdominal pain, no nausea, no coffee ground emesis, no hematemesis, no dysphagia, no cramping, no blood in stools and no melena Physical Exam Vital Signs (Past 24 Hours): Last Vital Signs Temp 36.6 C 01/19/19 07:48 Pulse 76 01/19/19 07:48 Resp 18 01/19/19 07:48 BP 102/68 01/19/19 07:48 Pulse Ox 97 01/19/19 07:48 Constitutional: well developed, well nourished, cooperative and comfortable; no acute distress Respiratory: normal respiratory effort, lungs clear to auscultation Cardiovascular: RRR, no murmur, no edema Gastrointestinal (Abdomen): Inspection/Auscultation: normal bowel sounds Percussion/Palpation: + abdomen rigid and abdomen soft; abdomen nontender and no guarding Skin: no rashes, warm and dry Results & Data Laboratory Results 01/19/19 01/19/19 01/18/19 Range/Units 05:16 05:16 12:03 WBC 7.10 (4.8-10.8) K/uL RBC 3.60 L (4.7-6.1) M/uL Hgb 12.4 L (14.0-18.0) g/dL Hct 36.0 L (42-52) % MCV 100.0 (80-100) fL MCH 34.4 H (25-34) pg MCHC 34.4 (32-36) g/dL RDW Std Deviation 71.2 H (36.4-46.3) fL RDW Coeff of Sha 19.8 H (11.5-14.5) % Plt Count 127 L (130-400) K/uL MPV 9.9 (7.4-10.4) fL Immature Gran % (Auto) % Neut % (Auto) % Lymph % (Auto) % Love % (Auto) % Eos % (Auto) % Baso % (Auto) % Immature Gran # (Auto) (0.00-0.02) K/uL Neut # (Auto) (1.4-6.5) K/uL Lymph # (Auto) (1.2-3.4) K/uL Love # (Auto) (0.11-0.59) K/uL Eos # (Auto) (0-0.5) K/uL Baso # (Auto) (0-0.2) K/uL PT (9.0-12.0) Seconds INR (0.9-1.1) APTT (21.0-31.0) Seconds PTT Ratio Sodium 135 L (136-145) mmol/L Potassium 3.4 L (3.5-5.1) mmol/L Chloride 105 (98-107) mmol/L Carbon Dioxide 26 (21-32) mmol/L Anion Gap 4.0 (3-11) BUN 9 (7-18) mg/dl Creatinine 0.70 (0.6-1.4) mg/dl Est Cr Clr Drug Dosing 92.4 ml/min Est GFR ( Amer) 113.2 Est GFR (Non-Af Amer) 97.7 BUN/Creatinine Ratio 13.0 (10-20) Glucose 122 H (70-99) mg/dl Lactate 1.0 (0.4-2.0) mmol/L Calcium 8.2 L (8.5-10.1) mg/dl Total Bilirubin (0.2-1) mg/dl AST (15-37) U/L ALT (12-78) U/L Alkaline Phosphatase (45-117) U/L Total Protein (6.4-8.2) gm/dl Albumin (3.4-5.0) gm/dl Globulin (2.5-4.0) gm/dl Albumin/Globulin Ratio (0.9-2) 01/18/19 01/18/19 01/18/19 Range/Units 12:03 12:03 12:03 WBC 8.37 (4.8-10.8) K/uL RBC 3.91 L (4.7-6.1) M/uL Hgb 13.8 L (14.0-18.0) g/dL Hct 39.2 L (42-52) % MCV 100.3 H (80-100) fL MCH 35.3 H (25-34) pg MCHC 35.2 (32-36) g/dL RDW Std Deviation 71.6 H (36.4-46.3) fL RDW Coeff of Sha 19.9 H (11.5-14.5) % Plt Count 126 L (130-400) K/uL MPV 9.7 (7.4-10.4) fL Immature Gran % (Auto) 0.2 % Neut % (Auto) 73.2 % Lymph % (Auto) 11.2 % Love % (Auto) 14.9 % Eos % (Auto) 0.4 % Baso % (Auto) 0.1 % Immature Gran # (Auto) 0.02 (0.00-0.02) K/uL Neut # (Auto) 6.12 (1.4-6.5) K/uL Lymph # (Auto) 0.94 L (1.2-3.4) K/uL Love # (Auto) 1.25 H (0.11-0.59) K/uL Eos # (Auto) 0.03 (0-0.5) K/uL Baso # (Auto) 0.01 (0-0.2) K/uL PT 12.6 H (9.0-12.0) Seconds INR 1.2 H (0.9-1.1) APTT 32.0 H (21.0-31.0) Seconds PTT Ratio 1.2 Sodium 135 L (136-145) mmol/L Potassium 3.9 (3.5-5.1) mmol/L Chloride 104 (98-107) mmol/L Carbon Dioxide 26 (21-32) mmol/L Anion Gap 5.0 (3-11) BUN 12 (7-18) mg/dl Creatinine 0.85 (0.6-1.4) mg/dl Est Cr Clr Drug Dosing 76.1 ml/min Est GFR ( Amer) 104.5 Est GFR (Non-Af Amer) 90.2 BUN/Creatinine Ratio 14.5 (10-20) Glucose 90 (70-99) mg/dl Lactate (0.4-2.0) mmol/L Calcium 8.8 (8.5-10.1) mg/dl Total Bilirubin 0.7 (0.2-1) mg/dl AST 44 H (15-37) U/L ALT 94 H (12-78) U/L Alkaline Phosphatase 95 (45-117) U/L Total Protein 7.3 (6.4-8.2) gm/dl Albumin 3.4 (3.4-5.0) gm/dl Globulin 3.9 (2.5-4.0) gm/dl Albumin/Globulin Ratio 0.9 (0.9-2)
--- NOTE | 2019-01-19 12:21 | Radiation Oncology Progress Nt ---
Date of Service January 19, 2019 Assessment & Plan (1) Cholangiocarcinoma: Assessment: Mr. Fernandez is currently under treatment for radiation therapy in the adjuvant setting for his resected cholangiocarcinoma. He has received 21/30 fractions of radiation therapy. The patient did develop bacteremia and has been admitted to the hospital and is being treated with antibiotics. Dr. Bridges has seen the patient and is holding chemotherapy until the patient's infection has cleared. Gastroenterology has been consulted to potentially identify source of infection given the fact that all other studies have not revealed a source of infection. We have been asked to evaluate the patient regarding continuation of radiation therapy. Plan: I will hold radiation therapy until completion of gastroenterology consultation to confirm that there is no suspicion for a infectious source that needs to be further evaluated. If gastroenterology does not recommend any further work up, I will proceed to start radiation therapy again for the patient. I spent 20 minutes for this consultation, which included obtaining clinical information, performing a physical exam, recommending a plan of action and answering questions. Greater than 50% of the time spent was direct face to face interaction with the patient. Present on Admission?: Yes (2) Bacteremia: Defer management to infectious disease and primary hospital team. Present on Admission?: Yes Subjective 01/17/2019. Blood cultures. Positive for gram-negative bacilli. 01/18/2019. CT of chest. IMPRESSION: 1. No acute intrathoracic metastatic disease. Please see separately dictated CT of the abdomen or pelvis. 01/18/2019. CT of abdomen/pelvis. IMPRESSION: 1. Interval postsurgical change of cholecystectomy and hepaticojejunostomy. Patent enteroenteric anastomosis. No bowel obstruction or other postsurgical complication. 2. Removal of the prior common duct stent. Unchanged pneumobilia and moderate intrahepatic biliary ductal dilatation. Pneumobilia as expected in the setting of a hepaticojejunostomy. 3. Prostatomegaly. 4. Multiple hepatic cysts. 5. No lymphadenopathy or evidence of metastatic disease in abdomen or pelvis. Patient is currently doing well after starting antibiotics. He is currently asymptomatic. He denies any recent chills. Physical Exam Constitutional: WD/WN, vitals as above well developed and well nourished Eyes: PERRL, conjunctivae normal, anicteric sclerae ENMT: external ear and nose normal, oropharynx normal Neck: trachea midline, no thyromegaly Respiratory: normal respiratory effort, lungs clear to auscultation Cardiovascular: RRR, no murmur, no edema Gastrointestinal (Abdomen): normal bowel sounds, soft, nontender, no hepatosplenomegaly Musculoskeletal: no cyanosis or clubbing, extremities motor strength 5/5 Skin: no rashes, warm and dry Neurologic: patellar DTR's 2+ bilat, sensation intact and PERRL, EOMI, accommodation nl, no face palsy, no dysarthria Psychiatric: A+Ox3, euthymic affect
[2019-01-19] MEDS: LATANOPROST 0.005% OP SOLN 2.5 ML BTL OPB SCH (16:30)
--- NOTE | 2019-01-19 19:25 | Hematology/Oncology Prog Note ---
Date of Service January 19, 2019 A/P: 68 year old male with cholangiocarcinoma s/p resection of extrahepatic bile duct, with en bloc cholecystectomy and periportal lymph node dissection and Mary-en-Y right and left hepaticojejunostomy and multiple wedge resection of liver at [facility] in June 04, 2018,pathologic stage pT3 pN0cM0 on adjuvant treatment, s/p chemotherapy initial gemciatabine capecitabine x 2 cycles, then gemcitabine discontinued due to neutropenia, s/p 4 additional cycles of capecitabine and now on concurrent chemoRT with capecitabine admitted for gram negative bacteremia. He is on IV cefepime, Afebrile today. ID and GI consults and radiation oncology consults appreciated. patient aware sensitivity/ID still pending on blood culture discussed with patient continue hold chemotherapy I discussed with Dr Khoury today and he will await GI recommendations if any further GI workup prior to resuming RT GI recommended MRCP and he is awaiting that recommend recheck CBC w/ diff and CMP in am. Also check if radiology can do comparison of current CT scan in hospital which mentions moderate diffuse intrahepatic biliary dilation as his prior CT scan in 09/2018 at [facility] read no biliary dilation at that time. Subjective Patient seen and examined. He is awaiting MRCP Overall feels well. no fever or chills today no diarrhea or vomiting or nausea or abdominal pain Physical Exam Vital Signs (Past 24 Hours): Last Vital Signs Temp 37.1 C 01/19/19 19:14 Pulse 87 01/19/19 19:14 Resp 18 01/19/19 19:14 BP 126/86 01/19/19 19:14 Pulse Ox 96 01/19/19 19:14 Gen: awake and alert NAD Lungs: CTAB CV: S1 S2 RRR Abd: soft and nontender Ext: no edema Results & Data Laboratory Results 01/17/19 blood cultures - Gram negative Bacilli - ID and sensitivity is pending urine culture pending cbc wbc 7.1 hemoglobin 12.4 hematocrit 36 platelet count [address] chest :No acute intrathoracic metastatic disease CT scan abomen and pelvis result showed: 1. Interval postsurgical change of cholecystectomy and hepaticojejunostomy. Patent enteroenteric anastomosis. No bowel obstruction or other postsurgical complication. 2. Removal of the prior common duct stent. Unchanged pneumobilia and moderate intrahepatic biliary ductal dilatation. Pneumobilia as expected in the setting of a hepaticojejunostomy. 3. Prostatomegaly. 4. Multiple hepatic cysts. 5. No lymphadenopathy or evidence of metastatic disease in abdomen or pelvis.
--- NOTE | 2019-01-19 20:03 | Magnetic Resonance Report ---
MR MRCP CLINICAL HISTORY: Cholangiocarcinoma status post Whipple procedure. Patient with gram-negative rods. Chills. COMPARISON STUDY: CT scan dated 01/18/2019 FINDINGS: Imaging was performed in the axial and coronal planes. Imaging was performed. There are multiple T2 bright hepatic lesions, likely representing cysts. The largest measures 5.9 cm. There is no pancreatic ductal dilatation. There are postsurgical changes of what is presumed to be a hepaticojejunostomy. The patient is status post a cholecystectomy. There is artifact at the level of the cholecystectomy b ed. There is no significant upper abdominal ascites. There is no pathologic adenopathy. There is no significant intrahepatic biliary ductal dilatation. IMPRESSION: 1. No evidence of pancreatic ductal dilatation. No evidence of intrahepatic biliary ductal dilatation 2. Postsurgical changes of what appears to be a hepaticojejunostomy 3. Multiple T2 bright hepatic masses likely representing cysts 4. Surgically absent gallbladder Electronically signed by: Kev Perez M.D. 01/19/2019 8:01 PM
--- NOTE | 2019-01-20 00:01 | Hospitalist Progress Note ---
Date of Service January 20, 2019 delayed entry date of service 01/19 Assessment & Plan (1) Bacteremia: Possible abdominal source in the setting of a retrofitted extrahepatic bile duct during a robotic surgery in May 2018. -- ff up blood cultures -- clinically improving afebrile -- continue Cefepime IV ID consulted (2) Cholangiocarcinoma: -- LFTs noted GI consulted MRCP ordered -- Chemo on hold -- plan for Radiation Tx 01/20 (3) BPH (benign prostatic hyperplasia): Continue tamsulosin per home regimen. (4) Ocular hypertension, bilateral: Continue eyedrops per home regimen. (5) DVT prophylaxis: Lovenox Full code as discussed with patient on admission Disposition- anticipate d/c home when medically stable Subjective ff up for gram negative bacteremia seen resting in bed, comfortable states he feels improved overall denies abdominal pain, fever/chills no chest pain, dyspnea, dizziness no other symptoms Physical Exam Vital Signs (Past 24 Hours): Last Vital Signs Temp 36.8 C 01/19/19 23:00 Pulse 83 01/19/19 23:00 Resp 20 01/19/19 23:00 BP 104/63 01/19/19 23:00 Pulse Ox 96 01/19/19 23:00 Physical Exam: General- oriented x 3, not in distress, speaks in sentences with no effort or accessory muscle use Head- atraumatic Eyes- PERRL, EOMI, anicteric ENT- oropharynx clear Neck- supple, no JVD, no adenopathy, no thyromegaly; carotids +2/2, no bruits appreciated Lungs- clear to auscultation bilaterally, no rales/wheezes Heart- normal rate, regular rhythm; no murmur, no gallop, no rub appreciated Abdomen- normal bowel sounds, nondistended, soft, nontender, no masses or hepatosplenomegaly Extremities- no pretibial edema, no calf tenderness; peripheral pulses intact Neuro- alert, oriented x 3; CN 2-12 grossly intact; motor 5/5 bilaterally;sensation 100% on all extremities; no other gross focal neurologic d eficits Skin- warm & dry Results & Data Laboratory Results noted and reviewed
[2019-01-20] MEDS: CEFEPIME 2,000 MG in SYRINGE 7.5 ML IV SCH (03:40)
[2019-01-20 05:46] LABS: Hematocrit (blood only) 35.5 % (42-52); Hemoglobin 12.2 g/dL (14.0-18.0); Mean Corpuscular Hgb Conc 34.4 g/dL (32-36); Mean Corpuscular Volume 99.4 fL (80-100); Mean Platelet Volume 10.3 fL (7.4-10.4); Platelet Count 129 K/uL (130-400); RDW Coefficient of Variation 20.2 % (11.5-14.5); RDW Standard Deviation 72.2 fL (36.4-46.3); Red Blood Count 3.57 M/uL (4.7-6.1); White Blood Count 5.29 K/uL (4.8-10.8)
[2019-01-20 06:09] LABS: Anisocytosis Present; Basophils # (auto) 0.01 K/uL (0-0.2); Basophils % (auto) 0.2 %; Eosinophils # (auto) 0.26 K/uL (0-0.5); Eosinophils % (auto) 4.9 %; Immature Granulocytes # (auto) 0.01 K/uL (0.00-0.02); Immature Granulocytes % (auto) 0.2 %; Lymphocytes # (auto) 1.13 K/uL (1.2-3.4); Lymphocytes % (auto) 21.4 %; Monocytes # (auto) 0.87 K/uL (0.11-0.59); Monocytes % (auto) 16.4 %; Neutrophils # (auto) 3.01 K/uL (1.4-6.5); Neutrophils % (auto) 56.9 %
[2019-01-20 06:15] LABS: Albumin Level 2.8 gm/dl (3.4-5.0); Creatinine Clr Calc Pharmacy 95.1 ml/min; Est GFR (African American) 114.5; Est GFR (Non-African American) 98.8; Potassium 3.8 mmol/L (3.5-5.1)
[2019-01-20 06:18] LABS: Albumin Globulin Ratio 0.8 (0.9-2); Bilirubin,Total 0.3 mg/dl (0.2-1); Globulin 3.7 gm/dl (2.5-4.0); Total Protein 6.5 gm/dl (6.4-8.2)
[2019-01-20] MEDS: ASPIRIN 81 MG ECTAB PO SCH (08:11)
[2019-01-20] MEDS: PYRIDOXINE HCL 50 MG TAB PO SCH (08:11)
[2019-01-20] MEDS: ENOXAPARIN INJ 40 MG/0.4 ML SYR SQ SCH ×2 (08:12→08:34)
[2019-01-20] MEDS: DORZOLAMIDE/TIMOLOL 22.3/6.8MG/ML 10 ML BTL OPB SCH (08:12)
--- NOTE | 2019-01-20 09:17 | Gastroenterology Progress Note ---
Date of Service January 20, 2019 Assessment & Plan (1) Bacteremia: 68 year old male with history of cholangiocarcinoma s/p robotic assisted resection of extrahepatic bile duct, cholecystectomy and periportal lymph node dissection and Mary-en-Y w/ hepaticojejunostomy who presents with fever/chills at home, OP blood cultures w/ gram negative rods started on IV cefepime. He is afebrile this AM. Continue IV ABX LFTs non-elevated MRCP negative In event of elevated LFTs or need for biliary decompression/evaluation will need to discuss transfer given anatomical changes to include Mary-en-Y w/ hepaticojejunostomy. Thank you for allowing us to participate in the care of this patient. Please call with any acute changes, questions or concerns. Please see addendum below with additional recommendation from my supervising physician. Supervising Physician Co-Signing Physician Notes I have seen and examined the patient with DILLON Kurtz whose note reflects our findings and plan. Subjective Pt was seen and evaluated, chart reviewed. Remains on IV ABX. No fever, chills since admisison. No abd pain. Eating well. No nausea, vomiting. No CP, SOB. Urine culture: pending Blood culture: gram negative rods MRCP: No evidence of pancreatic ductal dilatation. No evidence of intrahepatic biliary ductal dilatationPostsurgical changes of what appears to be a hepat icojejunostomyMultiple T2 bright hepatic masses likely representing cysts Surgically absent gallbladder Colonoscopy 2017: Diverticulosis in the sigmoid colon.No specimens collected.Otherwise normal to the terminal ileum, with retroflexed views of the ascending colon and rectum EGD/EUS 2018: hypoechoic mass in mid portion of CBD 18 x 18 mm. 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, addendum carcinoma ERCP 2018: malignant appearing stricture just below the hepatic duct bifurcation and CBD stent was placed Constitutional: no fever, no chills, no fatigue and no weakness Respiratory: no cough, no dyspnea, no pain with cough and no wheezing Cardiovascular: no chest pain, no radiating jaw, neck or arm pain, no dyspnea, no dyspnea on exertion and no palpitations Gastrointestinal: no abdominal pain, no belching, no bloating, no early satiety, no heartburn, no nausea, no vomiting, no coffee ground emesis, no hematemesis, no cramping, no diarrhea/loose stools, no blood in stools and no melena Physical Exam Vital Signs (Past 24 Hours): Last Vital Signs Temp 36.8 C 01/20/19 07:15 Pulse 78 01/20/19 07:15 Resp 16 01/20/19 07:15 BP 113/71 01/20/19 07:15 Pulse Ox 96 01/20/19 07:15 Constitutional: well developed, well nourished, cooperative and comfortable; no acute distress Respiratory: normal respiratory effort, lungs clear to auscultation Cardiovascular: RRR, no murmur, no edema Gastrointestinal (Abdomen): Inspection/Auscultation: normal bowel sounds Percussion/Palpation: abdomen soft; abdomen nontender, no guarding and abdomen not rigid Skin: no rashes, warm and dry Results & Data Laboratory Results 01/20/19 01/20/19 Range/Units 05:25 05:25 WBC 5.29 (4.8-10.8) K/uL RBC 3.57 L (4.7-6.1) M/uL Hgb 12.2 L (14.0-18.0) g/dL Hct 35.5 L (42-52) % MCV 99.4 (80-100) fL MCH 34.2 H (25-34) pg MCHC 34.4 (32-36) g/dL RDW Std Deviation 72.2 H (36.4-46.3) fL RDW Coeff of Sha 20.2 H (11.5-14.5) % Plt Count 129 L (130-400) K/uL MPV 10.3 (7.4-10.4) fL Immature Gran % (Auto) 0.2 % Neut % (Auto) 56.9 % Lymph % (Auto) 21.4 % [place] % (Auto) 16.4 % Eos % (Auto) 4.9 % Baso % (Auto) 0.2 % Immature Gran # (Auto) 0.01 (0.00-0.02) K/uL Neut # (Auto) 3.01 (1.4-6.5) K/uL Lymph # (Auto) 1.13 L (1.2-3.4) K/uL [place] # (Auto) 0.87 H (0.11-0.59) K/uL Eos # (Auto) 0.26 (0-0.5) K/uL Baso # (Auto) 0.01 (0-0.2) K/uL Anisocytosis Present Sodium 137 (136-145) mmol/L Potassium 3.8 (3.5-5.1) mmol/L Chloride 108 H (98-107) mmol/L Carbon Dioxide 24 (21-32) mmol/L Anion Gap 5.0 (3-11) BUN 8 (7-18) mg/dl Creatinine 0.68 (0.6-1.4) mg/dl Est Cr Clr Drug Dosing 95.1 ml/min Est GFR ( Amer) 114.5 Est GFR (Non-Af Amer) 98.8 BUN/Creatinine Ratio 12.0 (10-20) Glucose 109 H (70-99) mg/dl Calcium 8.0 L (8.5-10.1) mg/dl Total Bilirubin 0.3 (0.2-1) mg/dl AST 42 H (15-37) U/L ALT 74 (12-78) U/L Alkaline Phosphatase 102 (45-117) U/L Total Protein 6.5 (6.4-8.2) gm/dl Albumin 2.8 L (3.4-5.0) gm/dl Globulin 3.7 (2.5-4.0) gm/dl Albumin/Globulin Ratio 0.8 L (0.9-2)
[2019-01-20] MEDS: NSS + 20MEQ KCL 20 MEQ/1,000 ML BAG IV SCH (09:49)
--- NOTE | 2019-01-20 10:46 | Infectious Disease Progress Nt ---
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 Likely source related to previous biliary surgery, as patient has no indwelling central lines, and no obvious other localizing complaints. Isolate is quinolone sensitive, so patient could treat with levofloxacin for 10 days. (2) Cholangiocarcinoma: Subjective Patient seen in follow-up for bacteremia. Blood cultures growing sensitive Klebsiella species. Patient remains asymptomatic, no fever or chills. No abdominal pain. No other new complaints. Review of Systems All systems reviewed & are unremarkable except as noted in HPI & below Physical Exam Vital Signs (Past 24 Hours): Last Vital Signs Temp 36.8 C 01/20/19 07:15 Pulse 78 01/20/19 07:15 Resp 16 01/20/19 07:15 BP 113/71 01/20/19 07:15 Pulse Ox 96 01/20/19 07:15 Constitutional: WD/WN, vitals as above comfortable; no acute distress Eyes: PERRL, conjunctivae normal, anicteric sclerae ENMT: external ear and nose normal, oropharynx normal Neck: trachea midline, no thyromegaly neck nontender Respiratory: normal respiratory effort, lungs clear to auscultation normal percussion; does not use accessory muscles Cardiovascular: Rate/Rhythm: regular rate and regular rhythm Heart Sounds: normal S1 and normal S2; no gallop, no murmur and no cardiac rub Vessels: normal peripheral pulses; no JVD Gastrointestinal (Abdomen): normal bowel sounds, soft, nontender, no hepatosplenomegaly Musculoskeletal: no cyanosis or clubbing, extremities motor strength 5/5 Spine: thoracic spine normal to inspection and lumbar spine normal to inspection; no cervical spinal tenderness Skin: no rashes, warm and dry normal turgor; no lesions Neurologic: patellar DTR's 2+ bilat, sensation intact no focal motor deficits Psychiatric: A+Ox3, euthymic affect Orientation: cooperative Lymphatic: no cervical or axillary lymphadenopathy no inguinal lymphadenopathy Results & Data Laboratory Results Short CBC 01/20/19 Range/Units 05:25 WBC 5.29 (4.8-10.8) K/uL Hgb 12.2 L (14.0-18.0) g/dL Hct 35.5 L (42-52) % Plt Count 129 L (130-400) K/uL BMP 04/11/19 05:25 Sodium 137 Potassium 3.8 Chloride 108 H Carbon Dioxide 24 BUN 8 Creatinine 0.68 Glucose 109 H Calcium 8.0 L Liver Function 01/20/19 Range/Units 05:25 Total Bilirubin 0.3 (0.2-1) mg/dl AST 42 H (15-37) U/L ALT 74 (12-78) U/L Alkaline Phosphatase 102 (45-117) U/L Albumin 2.8 L (3.4-5.0) gm/dl Diagnostic Findings Joshua Schroeder MD Gray, Chad Choudhury MD Source: Blood OV Order: Ordered: Blood Culture Comments: Comment draw in RO right arm same time. Procedure Result Verified Site Blood Culture Final 01/20/19-1009 Organism 1 Klebsiella oxytoca Sens Sensitivities to Follow Phoned positive Blood Culture Gram Stain report to SELMA CARTER on 01/18/19 at 0738 [place] [id number]. [place] [id number]. Kleb oxyto RX M.I.C. --- --------- Amikacin S <=16 Amp/Sul I 16/8 Cefazolin R >16 Cefepime S <=4 Cefotaxime S <=2 Cefoxitin S <=8 Ceftriaxone S <=1 Cefuroxime S 8 Ciprofloxacin S <=1 Ertapenem S <=1 Gentamicin S <=4 Imipenem S <=1 Levofloxacin S <=2 Tobramycin S <=4 Trimeth/Sulfa S <=2/38 Pip/Tazo S <=16 S = SENSITIVE I = INTERMEDIATE R = RESISTANT Name: ALBERT HOWARD : 1950 PAGE 1 Printed: 01/20/19 0864
[2019-01-20] MEDS ORDERED: levoFLOXacin 500 MG TAB PO SCH (13:00)
--- NOTE | 2019-01-20 14:17 | Hospitalist Progress Note ---
Date of Service January 20, 2019 Assessment & Plan (1) Bacteremia: Klebsiella -- in the setting of ongoing Chemo/Radiation Therapy for Cholangiocarcinoma History of s/p robotic assisted resection of extrahepatic bile duct, cholecystectomy and periportal lymph node dissection and Mary-en-Y w/ hepaticojejunostomy -- blood cultures: (+) Klebsiella oxytoca -- clinically improved afebrile, no abdominal pain -- given Cefepime IV ID consulted Dr. Swartz recommend Levaquin 500mg po x 10 days -- GI consulted, Dr. Haque/LAINEY Barrera MRCP: no pancreatic duct, biliary duct dilatation -- recommend to ff up with Surgeon -- hold chemotherapy until infection has cleared Radiation therapy resumed (2) Cholangiocarcinoma: -- LFTs not elevated -- GI consulted, Dr. Haque/LAINEY Barrera MRCP: no pancreatic duct, biliary duct dilatation -- hold chemotherapy until infection has cleared Radiation therapy resumed -- ff up with Dr. Bridges next week ff up with Radiation Oncologist for continued Radiation Therapyt (3) BPH (benign prostatic hyperplasia): Continue tamsulosin per home regimen. (4) Ocular hypertension, bilateral: Continue eyedrops per home regimen. (5) DVT prophylaxis: Lovenox Full code as discussed with patient on admission Disposition- ff up with PCP Dr. Schroeder mon 01/24 ff up with Oncologist as scheduled next week ff up with Surgeon in 1-2 weeks Subjective ff up for gram negative bacteremia seen resting in bed, comfortable states he feels fine overall no abdominal pain , nausea, fever/chills energy is better ambulating with no problems denies other symptoms states he is ready and would like to be discharged today Physical Exam Vital Signs (Past 24 Hours): Last Vital Signs Temp 36.3 C L 01/20/19 11:45 Pulse 80 01/20/19 11:45 Resp 18 01/20/19 11:45 BP 127/78 01/20/19 11:45 Pulse Ox 95 01/20/19 11:45 Physical Exam: General- oriented x 3, not in distress, speaks in sentences with no effort or accessory muscle use Eyes- anicteric Neck- no JVD Lungs- clear BS bilaterally no rales/wheezes Heart- normal rate, regular rhythm; no murmurs Abdomen- normal bowel sounds, nondistended, soft, nontender Extremities- no pretibial edema, no calf tenderness Neuro- alert, oriented x 3; no gross focal neurologic deficits Skin- warm & dry Results & Data Laboratory Results Laboratory Results - last 24 hr 01/20/19 01/20/19 05:25 05:25 WBC 5.29 RBC 3.57 L Hgb 12.2 L Hct 35.5 L MCV 99.4 MCH 34.2 H MCHC 34.4 RDW Std Deviation 72.2 H RDW Coeff of Sha 20.2 H Plt Count 129 L MPV 10.3 Immature Gran % (Auto) 0.2 Neut % (Auto) 56.9 Lymph % (Auto) 21.4 Tyrrell % (Auto) 16.4 Eos % (Auto) 4.9 Baso % (Auto) 0.2 Immature Gran # (Auto) 0.01 Neut # (Auto) 3.01 Lymph # (Auto) 1.13 L Tyrrell # (Auto) 0.87 H Eos # (Auto) 0.26 Baso # (Auto) 0.01 Anisocytosis Present Sodium 137 Potassium 3.8 Chloride 108 H Carbon Dioxide 24 Anion Gap 5.0 BUN 8 Creatinine 0.68 Est Cr Clr Drug Dosing 95.1 Est GFR ( Amer) 114.5 Est GFR (Non-Af Amer) 98.8 BUN/Creatinine Ratio 12.0 Glucose 109 H Calcium 8.0 L Total Bilirubin 0.3 AST 42 H ALT 74 Alkaline Phosphatase 102 Total Protein 6.5 Albumin 2.8 L Globulin 3.7 Albumin/Globulin Ratio 0.8 L
--- NOTE | 2019-01-20 14:50 | Discharge Summary ---
Date of Service January 20, 2019 Admission HPI Per Admitting Provider 68-year-old man with a history of cholangiocarcinoma diagnosed in 2018 presents by referral from his oncologist after blood culture results revealed 2 out of 2 bottles positive for gram-negative bacteria. The patient states that he has had chills starting Thursday night that it persisted nightly up until last night. They have lasted approximately 1-3 hours in duration and then have passed. Throughout the days he has felt well. He denies any fevers at his home. Blood cultures were drawn during treatment for radiation yesterday after vital signs revealed an increased temperature. He is otherwise felt well denying any vomiting. He reports chronic nausea secondary to his cancer and the chemotherapy associated with it. He denies any diarrhea and has normal bowel movements daily. Denies any abdominal pain, chest pain, shortness of breath, headache, joint pain, joint effusion, UTI symptoms. The patient does not have a port and is on oral chemotherapy. The patient denies any recent procedures as outpatient. He denies any sores in his mouth or skin changes. He denies any recent dental work. Review of systems is otherwise negative aside from drenching sweats last night as well as a chronic dry cough that has seemed worse in the last week and a runny nose that is worse in the last 4 weeks. He does get runny noses in the springtime around seasonal changes. Admission Exam Per Admitting Provider Vital Signs (Past 24 Hours): Last Vital Signs Temp 37.0 C 01/18/19 10:59 Pulse 74 01/18/19 13:41 Resp 16 01/18/19 13:41 BP 127/82 01/18/19 13:41 Pulse Ox 98 01/18/19 13:41 CONSTITUTIONAL: WNWD, vitals as above, generally well-appearing EYES: PERRL, normal conjuctivae, no scleral icterus ENT: external ear and nose normal, oropharynx clear, no TM abnormality, no maxillary or ethmoid sinus tenderness NECK: trachea midline, no lymphadenopathy RESPIRATORY: clear to auscultation bilaterally, no crackles, rales or wheezes, normal respiratory effort CARDIOVASCULAR: regular rate and rhythm, S1 and 2 heard without murmurs, gallops or rubs, no JVD, no peripheral edema GASTROINTESTINAL: normal bowel sounds, soft, nontender, nondistended MUSCULOSKELETAL: no spinous process tenderness to palpation, strength 5/5 throughout, head is normocephalic and atraumatic, neck supple SKIN: warm and dry, no rashes NEUROLOGIC: No facial palsy, no dysarthria. CN 2-12 grossly intact, normal cognition, normal speech PSYCHIATRIC: alert cooperative and oriented to person, place and time. Principal Diagnosis KLEBSIELLA BACTEREMIA Discharge Exam Vital Signs (Past 24 Hours): Last Vital Signs Temp 36.3 C L 01/20/19 11:45 Pulse 80 01/20/19 11:45 Resp 18 01/20/19 11:45 BP 127/78 01/20/19 11:45 Pulse Ox 95 01/20/19 11:45 Physical Exam: General- oriented x 3, not in distress, speaks in sentences with no effort or accessory muscle use Eyes- anicteric Neck- no JVD Lungs- clear BS bilaterally no rales/wheezes Heart- normal rate, regular rhythm; no murmurs Abdomen- normal bowel sounds, nondistended, soft, nontender Extremities- no pretibial edema, no calf tenderness Neuro- alert, oriented x 3; no gross focal neurologic deficits Skin- warm & dry Discharge Data Allergies Allergy/AdvReac Type Severity Reaction Status Date / Time No Known Allergies Allergy Verified 01/18/19 13:37 Consultations 01/18/19 12:21 ED Decision to Admit Stat 01/18/19 17:41 Consult Case Management - Discharge Planning Routine Consult Infectious Diseases Stat 01/18/19 19:07 Consult Infectious Diseases Routine 01/18/19 19:08 Consult Oncology Routine 01/18/19 19:09 Consult Radiation Oncology Routine 01/19/19 08:47 Consult Gastroenterology Routine Ordered Studies 01/18/19 17:41 CT abd pelvis oral and IV con Urgent CT abd pelvis oral and IV con CLINICAL HISTORY: 68 years-old Male presenting with h/o cholangiocarcinoma, +GN bacteremia. TECHNIQUE: Multidetector CT of the abdomen and pelvis was performed after the administration of oral and intravenous contrast. IV contrast: 93 mL of Optiray 320. One or more dose lowering techniques were used consistent with the principles of ALARA (as low as reasonably achievable), including automatic exposure control, mA or kV adjustment to individual patient size, and/or use of iterative reconstruction. COMPARISON: Nondiagnostic CT from 12/13/[address] from 05/13/2018.. CT DOSE (mGy.cm): The estimated cumulative dose is 769.46 mGy.cm. FINDINGS: Database Administrator topogram: Unremarkable. Lung bases: Normal heart size. Coronary artery calcification. No pericardial or pleural effusion. Minimal dependent changes likely atelectasis. Liver: Normal morphology. Several well-defined hypodense lesions throughout the liver likely hepatic cysts similar to prior exams. Patent hepatic vasculature. Biliary: Moderate diffuse intrahepatic biliary ductal dilatation with pneumobilia as on prior exam. The prior common bile duct stent has been removed. Suspected postsurgical changes of hepaticojejunostomy. Interval cholecystectomy. Pancreas: Normal. Spleen: Normal. Adrenal glands: Normal. Kidneys and ureters: Normal. No hydronephrosis. Bladder: Normal. Pelvic organs: Prostate enlargement likely secondary to benign prostatic hyperplasia. Bowel: Mild stool burden throughout normal caliber colon. The appendix is atrophic and normal. No bowel obstruction. Small sliding-type hiatal hernia. Patent enteroenteric anastomosis in the left mid abdomen from prior exam. Postsurgical changes of hepaticojejunostomy. Peritoneal cavity: No free fluid or intraperitoneal gas. Lymph nodes: No enlarged lymph nodes in the abdomen or pelvis. Vasculature: Atherosclerosis of the normal caliber abdominal aorta. IVC patent. Abdominal wall: Fat-containing left inguinal hernia suspected. Musculoskeletal: Degenerative changes of the spine. IMPRESSION: 1. Interval postsurgical change of cholecystectomy and hepaticojejunostomy. Patent enteroenteric anastomosis. No bowel obstruction or other postsurgical complication. 2. Removal of the prior common duct stent. Unchanged pneumobilia and moderate intrahepatic biliary ductal dilatation. Pneumobilia as expected in the setting of a hepaticojejunostomy. 3. Prostatomegaly. 4. Multiple hepatic cysts. 5. No lymphadenopathy or evidence of metastatic disease in abdomen or pelvis. CT chest w con Urgent IMPRESSION: 1. No acute intrathoracic metastatic disease. Please see separately dictated CT of the abdomen or pelvis. 01/19/19 13:21 MR MRCP Routine IMPRESSION: 1. No evidence of pancreatic ductal dilatation. No evidence of intrahepatic biliary ductal dilatation 2. Postsurgical changes of what appears to be a hepaticojejunostomy 3. Multiple T2 bright hepatic masses likely representing cysts 4. Surgically absent gallbladder Hospital Course (1) Bacteremia: Blood Cultures: (+) Klebsiella -- in the setting of ongoing Chemo/Radiation Therapy for Cholangiocarcinoma History of s/p robotic assisted resection of extrahepatic bile duct, cholecystectomy and periportal lymph node dissection and Mary-en- Y w/ hepaticojejunostomy -- blood cultures: (+) Klebsiella oxytoca -- clinically improved afebrile, no abdominal pain -- given Cefepime IV ID consulted Dr. Swartz recommend Levaquin 500mg po x 10 days -- GI consulted, Dr. Haque/LAINEY Barrera MRCP: no pancreatic duct, biliary duct dilatation -- recommend to ff up with Surgeon -- hold chemotherapy until infection has cleared Radiation therapy resumed (2) Cholangiocarcinoma: -- LFTs not elevated -- GI consulted, Dr. Haque/LAINEY Barrera MRCP: no pancreatic duct, biliary duct dilatation -- hold chemotherapy until infection has cleared Radiation therapy resumed -- ff up with Dr. Bridges next week ff up with Radiation Oncologist for continued Radiation Therapy (3) BPH (benign prostatic hyperplasia): Continue tamsulosin per home regimen. (4) Ocular hypertension, bilateral: Continue eyedrops per home regimen. (5) DVT prophylaxis: Lovenox Full code as discussed with patient on admission Disposition- ff up with PCP Dr. Schroeder 01/24 ff up with Oncologist as scheduled next week ff up with Surgeon in 1-2 weeks Total Time Total Time Spent Total Time Spent (In Minutes): 30 mins Discharge Plan Discharge Items Patient Disposition: Home - Self-Care Reason For Visit: BACTEREMIA Discharge Diagnosis: BLOOD STREAM INFECTION- KLEBSIELLA Discharge Goals: Diagnostic testing and Therapeutic intervention Activity: As commented below Activity Comment: INCREASE ACTIVITY GRADUALLY TOLERATED, NO HEAVY EXERTION Lifting: Wait until after follow-up appointment Exercise/Sports: Wait until after follow-up appointment Driving/Machine Use Comment: NO DRIVING UNTIL FOLLOW UP WITH PRIMARY CARE PHYSICIAN Non-emergency contact: Primary Care Provider and Oncologist Call non-emergency contact if: you have any medication questions, your symptoms worsen, your pain is not controlled, your pain is worsening, your pain is unusual for you and you have a fever Follow-up/Referrals: Joshua Schroeder MD [Primary Care Provider] - 01/24/19 11:45 am Diet: Heart Healthy Addtl Provider Instructions: PLEASE TAKE LEVAQUIN (ANTIBIOTIC) FOR A TOTAL OF 9 MORE DAYS. FOLLOW UP WITH ONCOLOGIST NEXT WEEK SCHEDULED. ALSO FOLLOW UP WITH YOUR SURGEON IN 1-2 WEEKS. PLEASE STAY WELL HYDRATED. CALL PRIMARY CARE PHYSICIAN OR ONCOLOGIST IMMEDIATELY IF WITH FEVER, WEAKNESS, ABDOMINAL PAIN, DIARRHEA. Prescriptions: New levofloxacin 500 mg Tablet 500 mg PO DAILY Qty: 3 RF: 0 Continued ranitidine HCl [Zantac] 150 mg tablet 150 mg PO QAM RF: 0 prochlorperazine maleate [Compazine] 10 mg tablet 10 mg PO Q6H PRN (Reason: Nausea) RF: 0 acetaminophen [Tylenol Extra Strength] 500 mg tablet 1,000 mg PO Q6H PRN (Reason: pain) RF: 0 pyridoxine (vitamin B6) [Vitamin B-6] 50 mg tablet 25 mg PO QAM RF: 0 aspirin 81 mg Tablet,Delayed Release (Dr/Ec) 81 mg PO QAM RF: 0 tamsulosin 0.4 mg capsule 0.4 mg PO QPM RF: 0 dorzolamide-timolol 22.3-6.8 mg/mL drops 1 drp OPB [id number] RF: 0 flaxseed oil 1,000 mg 1,000 mg PO QAM RF: 0 latanoprost 0.005 % drops 1 drp OPB DAILY@1700 RF: 0 melatonin 3 mg Tablet 3 mg PO HS PRN (Reason: Insomnia) RF: 0 multivitamin [Multiple Vitamins] Tablet 1 tab PO QAM RF: 0 urea 10 % cream 1 applic topical DIRECTED RF: 0 Changed levofloxacin 500 mg tablet 500 mg PO DAILY 9 Days Qty: 9 RF: 0 Discontinued capecitabine [Xeloda] 500 mg tablet 1,500 mg PO MOTUWETHFR@ RF: 0 Stand-Alone Forms: [facility] Discharge Orders: Discharge Order (Routine); Ordered 01/20/19 Ordered By: Marc Whitfield Admission Data Admit Date/Time: 01/18/19 14:21 Attending Provider: Marc Whitfield Admit Provider: Nereida Unger Primary Care Provider: Joshua Schroeder Other Providers: Roger Swartz ; Chad Bridges ; James Khoury ; Vandana Haque Service: Oncology Other Interventions: Discharge Summary Assessment (RN) Last Done: 01/20/19 15:55 DC Date/Time DO NOT enter until pt leaves facility: 01/20/19 16:17
--- NOTE | 2019-01-24 08:30 | Coding Query ---
CODING QUERY To promote full compliance with coding requirements relating to patient care, provider participation is requested in all cases of foreclosure specialist uncertainty. Please assist us with the question(s) below: Coding Question(s): Bacteremia is documented in this record with the ER showing a history of biliary stent insertion, replaced on 05/14/18 and the H&P documenting, "Possible abdominal source in the setting of a retrofitted extrahepatic bile duct during a robotic surgery in May 2018" and Infectious Disease Consultation and Progress Note documenting, "Likely source relates to previous biliary surgery". The Discharge Summary documents Bacteremia " in the setting of ongoing Chemo/Radiation Therapy for Cholangiocarcinoma History of s/p robotic assisted resection of extrahepatic bile duct, cholecystectomy and periportal lymph node dissection and Mary-en-Y w/ hepaticojejunostomy". Please clarify below, in your clinical opinion, regarding the possible/likely source of the bacteremia. ( ) Likely source of bacteremia is postoperative infection resulting from the biliary stent that was placed in May 2018 ( ) Likely source of bacteremia is a postoperative infection resulting from the surgery in May 2018 ( ) Likely source of bacteremia is Other: Please Specify (X ) Likely source of bacteremia is Unknown Physician's Response(s): Thank you Aditi Serrano Principal Diagnosis: "that condition established after study, to be chiefly responsible for occasioning the admission of the patient to the hospital for care." Co-Existing Principal Diagnosis: "when two or more diagnoses equally meet the criteria for principal diagnosis as determined by the circumstances of admission, diagnostic work up, and/or therapy provided, and the Alphabetic Index, Tabular List, or another coding guideline does not provide sequencing direction, any one of the diagnoses may be sequenced first." "When the physician has documented what appears to be a current diagnosis in the body of the record, but has not included the diagnosis in the final diagnostic statement, the physician should be asked whether the diagnosis should be added." (Source Coding [facility] 2 QTR90. p3-4) AMANUEL
== END 2019-01-20 16:17 | disposition home or self-care (01) | DRG 872 ==
LOC: ED 10:38 → 2N 12:59 → 4E 14:01